=== PATIENT | female | born 1955 | race African-American/Black ===

== ENCOUNTER → 2017-04-04 | Day surgery (SDC) | payer MEDICARE ==
[~2017-04-04] VITALS: Ht 157.5 cm; Wt 90.7 kg
[~2017-04-04] MED LIST: 0.9 % SODIUM CHLORIDE 50 ML VIAL. IJ ONE; AZIT250T PO; BENZ100C PO; CHOL100013 PO; DEXAMETHASONE SOD PHOS 20 MG/5 ML VIAL. ONE; FERRIC SUBSULFATE 8 ML SOL.W.APPL TP ONE; HYDROmorphone 2 MG/ML VIAL IV PRN; IBUP-1007 PO; IV RINGERS,LACTATED 1000ML 1,000 ML IV SCH; LIDOCAINE 1% 1 ML SYRINGE. ID PRN; LIDOCAINE 1%/EPI 1:100,000 20 ML VIAL. ONE; LIDOCAINE 2% PF Vial for OR 5 ML VIAL. ONE; LIDOCAINE 2%/EPI 1:100,000 20 ML VIAL. ONE; MIDAZOLAM HCL/PF 2 MG/2 ML VIAL. ONE; MORPHINE SULFATE 2 MG/ML DISP.SYRIN. IV PRN; OMEP20TA8 PO; ONDANSETRON PF 4 MG/2 ML VIAL. IV PRN; ONDANSETRON PF 4 MG/2 ML VIAL. ONE; OXYC-323 PO; PHENYLEPHRINE 10 MG/ML VIAL. ONE; PRED50TA PO; PROCHLORPERAZINE 10 MG/2 ML VIAL. IV PRN; PROPOFOL 20 ML IV ONE; SEVOFLURANE 31 TO 60 MINUTES. IH ONE; ceFAZolin 2GM PREMIX 2 GM/50 ML BAG IV ONE; fentaNYL PF VIAL 100 MCG/2 ML VIAL IV PRN; fentaNYL PF VIAL 100 MCG/2 ML VIAL ONE; oxyCODONE/APAP 5/325 1 TAB TABLET PO PRN
--- NOTE | 2017-04-04 11:45 | DISCH ---
DISCHARGE INSTRUCTIONS Condition on Discharge Condition on Discharge: Stable Activity After Discharge Activity Instructions for Disc: Activity as tolerated Lifting Instructions after Dis: No heavy lifting Driving Instructions after Dis: Do not drive today Diet after Discharge Diet after Discharge: Regular Contacting the DRRubens after DC Call your doctor for: Concerns you may have Follow-Up Follow up with: Dr. Groves in 2 weeks. BRAYAN GROVES Jr, MD Apr 04, 2017 11:45
--- NOTE | 2017-04-04 11:45 | PDOC ---
BRIEF OPERATIVE NOTE Pre-Op Diagnosis Cervical Dysplasia Post-Op Diagnosis SAme Procedure Performed Cervical Cone bx Surgeon Dr. Groves Anesthesia Type: General Blood Loss 10 ml Specimens Obtained cervical cone bx Findings cervical dysplasia Complications none BRAYAN GROVES Jr, MD Apr 04, 2017 11:45
[2017-04-04 12:47] VITALS: BP 105/57
--- NOTE | 2017-04-04 14:13 | OP ---
DATE OF SURGERY: PREOPERATIVE DIAGNOSIS: Cervical dysplasia. POSTOPERATIVE DIAGNOSIS: Cervical dysplasia. PROCEDURE: Cervical cone biopsy. SURGEON: Jose Groves MD ANESTHESIA: GETA. ESTIMATED BLOOD LOSS: 10 mL. COMPLICATIONS: None. FINDINGS: Cervical dysplasia. SUMMARY: A 61-year-old female with cervical dysplasia confirmed by colposcopy in clinic. The patient was counseled on risks, benefits and expectations of cervical cone biopsy and voiced a clear understanding to proceed. DESCRIPTION OF PROCEDURE: The patient was taken to surgery suite and placed in dorsal lithotomy position. She was prepped with Betadine solution and draped in sterile fashion. After adequate anesthesia, a weighted speculum and a right angled were placed vaginally. Anterior lip of the cervix grasped with a single tooth tenaculum. 1% lidocaine with epinephrine was injected in a circumferential manner. 2-0 Vicryl suture was placed at the 3 o'clock and 9 o'clock position to better stabilized cervix. 45-degree angle blade was utilized to excise both the anterior and posterior lip of the cervix in a cone-like fashion. The remaining cervical canal was cauterized with ball tip cautery and Monsel solution was also applied for good hemostasis. The weighted speculum and right angle were removed. The single tooth tenaculum was also removed. The patient tolerated the procedure well and was taken to recovery room in stable condition. Sponge and needle counts correct x 3. JOSE GROVES MD DR: JOSEPHINE/erasmo JOB#: [id number] / [id number]
--- NOTE | 2017-04-08 15:38 | PATHOLOGY ---
PATHOLOGY REPORT * * * * * * * * FINAL DIAGNOSIS: Uterine cervix, cervical cone biopsy: - Mild dysplasia (AYSHA 1), focal. - Ectocervical and endocervical margins negative for dysplasia. - Focal fibrosis and hemosiderin laden macrophages consistent with previous biopsy site. - Nabothian cysts. (JPM:pit; 04/08/2017) REPORT ELECTRONICALLY SIGNED BY: Ruel Louie M.D. DATE/TIME: 04/08/2017 15:38 * * * * * * * * GROSS PATHOLOGY: Received in formalin labeled "Caitlyn Root, cervical cone biopsy," is an intact LEEP specimen measuring 1.9 x 1.1 x 2.5 cm in greatest dimensions. The specimen is oriented with a suture marking the 12:00 position. The 0.5 cm cervical os is surrounded by pale montaño, smooth ectocervical mucosa. The endocervical margin is inked blue and the ectocervical margin is inked black. The specimen is divided into four quadrants in a clockwise fashion, sectioned, and entirely submitted as follows: A1 12 to 3:00 margin A2 3 to 6:00 margin A3-A4 6 to 9:00 margin A5 9 to 12:00 margin. (CAA; 04/05/2017) INITIAL CPT CODE(S): A; 55383 Professional services performed by [facility] at [address] [address] Technical services performed by [facility] at [address] [place] [address] [address], [place] [address]. SPECIMEN(S) RECEIVED: A.Cervical cone biopsy CLINICAL HISTORY: Cervical dysplasia PATIENT: CAITLYN ROOT I /AGE: 8 1955 (Age: 61) PATIENT #: [id number] ALT CASE #: SPECIMEN COLLECTION DATE: 04/04/2017 SPECIMEN RECEIVED DATE: 04/04/2017 [facility] - [address] [place] [address] - PHONE: [phone] * * * END OF REPORT * * *
== END | disposition home or self-care (01) ==
LOC: SURG 09:24
PROVIDERS: ATTEND Obstetrics & Gynecology
DX: N87.9 Dysplasia of cervix uteri, unspecified (principal); K21.9 Gastro-esophageal reflux disease without esophagitis; F41.9 Anxiety disorder, unspecified; Z85.3 Personal history of malignant neoplasm of breast; Z86.69 Personal history of other diseases of the nervous system and sense organs; Z87.39 Personal history of other diseases of the musculoskeletal system and connective tissue; Z72.89 Other problems related to lifestyle; Z72.0 Tobacco use; Z88.2 Allergy status to sulfonamides
CPT/HCPCS: 57500; J0690; J1100; J2001; J2250; J2405; J2704; J3010; J3490; 88307

== ENCOUNTER → 2017-09-24 | Outpatient (CLI) | payer MEDICARE ==
[~2017-09-24] MED LIST changes: -0.9 % SODIUM CHLORIDE 50 ML VIAL. IJ ONE; -AZIT250T PO; -BENZ100C PO; -CHOL100013 PO; -DEXAMETHASONE SOD PHOS 20 MG/5 ML VIAL. ONE; -FERRIC SUBSULFATE 8 ML SOL.W.APPL TP ONE; -HYDROmorphone 2 MG/ML VIAL IV PRN; -IBUP-1007 PO; -IV RINGERS,LACTATED 1000ML 1,000 ML IV SCH; -LIDOCAINE 1% 1 ML SYRINGE. ID PRN; -LIDOCAINE 1%/EPI 1:100,000 20 ML VIAL. ONE; -LIDOCAINE 2% PF Vial for OR 5 ML VIAL. ONE; -LIDOCAINE 2%/EPI 1:100,000 20 ML VIAL. ONE; -MIDAZOLAM HCL/PF 2 MG/2 ML VIAL. ONE; -MORPHINE SULFATE 2 MG/ML DISP.SYRIN. IV PRN; -OMEP20TA8 PO; -ONDANSETRON PF 4 MG/2 ML VIAL. IV PRN; -ONDANSETRON PF 4 MG/2 ML VIAL. ONE; -OXYC-323 PO; +PERFLUTREN PROTEIN-A MICROSPHR 0.22 MG/ML 3 ML VIAL. IV; -PHENYLEPHRINE 10 MG/ML VIAL. ONE; -PRED50TA PO; -PROCHLORPERAZINE 10 MG/2 ML VIAL. IV PRN; -PROPOFOL 20 ML IV ONE; -SEVOFLURANE 31 TO 60 MINUTES. IH ONE; -ceFAZolin 2GM PREMIX 2 GM/50 ML BAG IV ONE; -fentaNYL PF VIAL 100 MCG/2 ML VIAL IV PRN; -fentaNYL PF VIAL 100 MCG/2 ML VIAL ONE; -oxyCODONE/APAP 5/325 1 TAB TABLET PO PRN
[2017-09-24] MEDS: PERFLUTREN PROTEIN-A MICROSPHR 0.22 MG/ML 3 ML VIAL. IV ×2 (14:06)
== END | disposition home or self-care (01) ==
LOC: ECHO 11:04
DX: I95.9 Hypotension, unspecified (principal); R42 Dizziness and giddiness
CPT/HCPCS: C8929; Q9956

== ENCOUNTER → 2017-10-15 | Outpatient (CLI) | payer MEDICARE ==
[2017-10-15] MEDS: REGADENOSON 0.4 MG/5 ML DISP.SYRIN. IV ×2 (10:00)
== END | disposition home or self-care (01) ==
LOC: NM 09:08
DX: I95.9 Hypotension, unspecified (principal); Z85.3 Personal history of malignant neoplasm of breast
CPT/HCPCS: 78452; 93017; 96374; 96375; 96376; A9500; J2785

== ENCOUNTER 2017-12-03 00:46 | Emergency (ER) | payer MEDICARE ==
[2017-12-03] MEDS: KETOROLAC 60 MG/2 ML INJ. IM (02:09)
== END 2017-12-03 02:24 | disposition home or self-care (01) ==
LOC: ER 00:46
DX: M10.9 Gout, unspecified (principal); F17.210 Nicotine dependence, cigarettes, uncomplicated; Z88.2 Allergy status to sulfonamides
CPT/HCPCS: 73610; 93971; 96372; 99284-25; J1885

== ENCOUNTER 2020-03-17 07:51 | Inpatient (IN) | payer MEDICARE ==
[2020-03-17] VITALS (16 sets, daily range): BP systolic 84–157; BP diastolic 54–93
[~2020-03-17] VITALS: Ht 157.5 cm; Wt 81.0 kg
[~2020-03-17 07:51] MED LIST changes: +AZIT250T PO; +BENZ100C PO; +CALC-79 PO; +CHOL100013 PO; +HYDR-3164 PO; +IBUP-1007 PO; +INDO50CA15 PO; +MECL12.573 PO; +OMEP20TA8 PO; +OXYC1TAB15 PO; -PERFLUTREN PROTEIN-A MICROSPHR 0.22 MG/ML 3 ML VIAL. IV; +PRED50TA PO
[2020-03-17] MEDS ORDERED: ETOMIDATE 20 MG/10 ML VIAL. IV ONE ×2 (08:10→09:30)
[2020-03-17] MEDS ORDERED: ROCURONIUM 50 MG/5 ML VIAL. ONE (08:10)
[2020-03-17] MEDS ORDERED: PROPOFOL 50 ML IV ONE ×3 (08:16→12:00)
[2020-03-17] MEDS ORDERED: ASPIRIN RECTAL 300 MG SUPP. PR STA (08:42)
[2020-03-17 08:50] LABS: BARBITURATES NEG (NEG); BENZODIAZEPINES NEG (NEG); CANNABINOIDS NEG (NEG); COCAINE NEG (NEG); METHADONE NEG (NEG); OPIATES NEG (NEG); PHENCYCLIDINE NEG (NEG)
[2020-03-17 08:51] LABS: AMPHETAMINE/METHAMPHETAMINE NEG (NEG)
[2020-03-17 08:54] LABS: BASE EXCESS ABG -1 mmol/L (-3-3); HCO3 ABG 27 mmol/L (21-28); PO2 ABG 119 mmHg (65-108); SAT O2 ABG 97 % (92-99)
[2020-03-17 08:56] LABS: FIO2 ABG 100%; PCO2 ABG 63 mmHg (35-46)
[2020-03-17 08:59] LABS: BASO % 0 % (0-3); EOS % 0 % (0-3); HEMATOCRIT 25.2 % (36.0-47.0); LYMPH # 2.4 x10^3/uL (1.0-4.8); LYMPH % 20 % (24-48); MEAN CORPUSCULAR HEMOGLOBIN 31 pg (25-35); MEAN CORPUSCULAR HGB CONC 32 g/dL (31-37); MEAN CORPUSCULAR VOLUME 98 fL (79-100); MONO # 0.4 x10^3/uL (0.0-1.1); MONO % 3 % (0-9); NEUT # 9.3 x10^3/uL (1.8-7.7); NEUT % 77 % (31-73); PLATELET COUNT 178 x10^3/uL (140-400); RED BLOOD COUNT 2.57 x10^6/uL (3.50-5.40); RED CELL DISTRIBUTION WIDTH 21.5 % (11.5-14.5); WHITE BLOOD COUNT 12.1 x10^3/uL (4.0-11.0)
[2020-03-17] MEDS ORDERED: fentaNYL PF VIAL 100 MCG/2 ML VIAL IV ONE (09:00)
[2020-03-17] MEDS ORDERED: PIPERACILLIN/TAZOBACTAM 2.25 GM in IV NORMAL SALINE 50ML 50 ML IV ONE (09:00)
[2020-03-17 09:09] LABS: CALCIUM 8.1 mg/dL (8.5-10.1); CREATININE 4.7 mg/dL (0.6-1.0); GFR 11.3; POTASSIUM 4.3 mmol/L (3.5-5.1); PROTHROMBIN TIME PATIENT 13.3 SEC (11.7-14.0)
[2020-03-17 09:14] LABS: ALBUMIN 2.5 g/dL (3.4-5.0); TOTAL BILIRUBIN 0.4 mg/dL (0.2-1.0)
--- NOTE | 2020-03-17 09:22 | PHYS DOC ---
Past Medical History Past Medical History: Cancer, Other Additional Past Medical Histor: breast ca, Past Surgical History: Cancer Surgery Additional Past Surgical Histo: lumpectomy, wrist surgery. Smoking Status: Current Every Day Smoker Alcohol Use: None Drug Use: Marijuana General Adult EDM: Chief Complaint: SHORTNESS OF BREATH HPI: HPI: Patient is a 64 year old female brought in by ambulance shortness of breath sudden onset severe 5:30 in the morning history limited by the patient's acuity per the paramedics oxygen saturation was very low they placed the patient on BiPAP. According to the patient had a negative COVID test about a week and a half ago she seemed to be okay yesterday he thought the shortness of breath got worse today. Past medical history includes Merna's granulomatosis end-stage renal disease on hemodialysis Saturday recent admission March 05 [facility] for shortness of breath the paperwork has been sent for the details of that admission. Medication lists does not know it at this time. Allergy to sulfa. No history of diabetes DID NOT go to dialysis yet today but otherwise has not missed any. Review of Systems: Review of Systems: Limited by acuity Heart Score: Risk Factors: Risk Factors: DM, Current or recent (<one month) smoker, HTN, HLP, family history of CAD, obesity. Risk Scores: Score 0 - 3: 2.5% MACE over next 6 weeks - Discharge Home Score 4 - 6: 20.3% MACE over next 6 weeks - Admit for Clinical Observation Score 7 - 10: 72.7% MACE over next 6 weeks - Early Invasive Strategies Current Medications: Current Medications Medications (Trade) Dose Ordered Sig/Solomon Start Time Stop Time Status Last Admin Dose Admin Aspirin (Aspirin Rectal Supp) 300 mg 1X STAT 03/17/20 08:42 03/17/20 08:58 DC Etomidate (Amidate) 20 mg STK-MED ONCE 03/17/20 08:10 03/17/20 08:10 DC Fentanyl Citrate (Fentanyl 2ml Vial) 100 mcg 1X ONCE 03/17/20 09:00 03/17/20 09:01 DC Piperacillin Sod/ Tazobactam Sod 2.25 gm/Sodium Chloride 50 ml @ 100 mls/hr 1X ONCE 03/17/20 09:00 03/17/20 09:29 Propofol 50 ml @ As Directed STK-MED ONCE 03/17/20 08:16 03/17/20 08:17 DC Rocuronium [place] (Zemuron) 50 mg STK-MED ONCE 03/17/20 08:10 03/17/20 08:11 DC Allergies: Allergies: Allergies Coded Allergies Type Severity Reaction Last Updated Verified Sulfa (Sulfonamide Antibiotics) Allergy Intermediate 12/03/17 Yes Physical Exam: PE: Constitutional: Well developed, very ill-appearing severe respiratory distress HENT: Normocephalic, atraumatic, bilateral external ears normal, oropharynx moist, no oral exudates, nose normal. [] Eyes: PERRLA, EOMI, conjunctiva normal, no discharge. [] Neck: Normal range of motion, no tenderness, supple, no stridor. [] Cardiovascular:H severe tachycardia Lungs & Thorax: Audible coarse breath sounds without a stethoscope severe respiratory distress was noted patient appeared blue Abdomen: Bowel sounds normal, soft, no tenderness, no masses, no pulsatile masses. [] Skin: Warm, dry, no erythema, rash on legs Back: No tenderness, no CVA tenderness. [] Extremities: No tenderness, no cyanosis, no clubbing, ROM intact, 1+ symmetric edema Neurologic: Alert difficult to assess due to respiratory status but moving all extremities and able to answer 1-2 word sentences Current Patient Data: Labs: Laboratory Tests Test 03/17/20 08:30 03/17/20 08:40 03/17/20 08:45 Urine Opiates Screen Neg (NEG) Urine Methadone Screen Neg (NEG) Urine Barbiturates Neg (NEG) Urine Phencyclidine Screen Neg (NEG) Urine Amphetamine/Methamphetamine Neg (NEG) Urine Benzodiazepines Screen Neg (NEG) Urine Cocaine Screen Neg (NEG) Urine Cannabinoids Screen Neg (NEG) Urine Ethyl Alcohol Neg (NEG) White Blood Count 12.1 x10^3/uL (4.0-11.0) H Red Blood Count 2.57 x10^6/uL (3.50-5.40) L Hemoglobin 8.0 g/dL (12.0-15.5) L Hematocrit 25.2 % (36.0-47.0) L Mean Corpuscular Volume 98 fL (79-100) Mean Corpuscular Hemoglobin 31 pg (25-35) Mean Corpuscular Hemoglobin Concent 32 g/dL (31-37) Red Cell Distribution Width 21.5 % (11.5-14.5) H Platelet Count 178 x10^3/uL (140-400) Neutrophils (%) (Auto) 77 % (31-73) H Lymphocytes (%) (Auto) 20 % (24-48) L Monocytes (%) (Auto) 3 % (0-9) Eosinophils (%) (Auto) 0 % (0-3) Basophils (%) (Auto) 0 % (0-3) Neutrophils # (Auto) 9.3 x10^3/uL (1.8-7.7) H Lymphocytes # (Auto) 2.4 x10^3/uL (1.0-4.8) Monocytes # (Auto) 0.4 x10^3/uL (0.0-1.1) Eosinophils # (Auto) 0.0 x10^3/uL (0.0-0.7) Basophils # (Auto) 0.0 x10^3/uL (0.0-0.2) Platelet Estimate Pending Prothrombin Time 13.3 SEC (11.7-14.0) Prothrombin Time INR 1.1 (0.8-1.1) Sodium Level 142 mmol/L (136-145) Potassium Level 4.3 mmol/L (3.5-5.1) Chloride Level 106 mmol/L (98-107) Carbon Dioxide Level 24 mmol/L (21-32) Anion Gap 12 (6-14) Blood Urea Nitrogen 53 mg/dL (7-20) H Creatinine 4.7 mg/dL (0.6-1.0) H Estimated GFR (Cockcroft-Gault) 11.3 BUN/Creatinine Ratio 11 (6-20) Glucose Level 265 mg/dL (70-99) H Calcium Level 8.1 mg/dL (8.5-10.1) L Total Bilirubin Pending Aspartate Amino Transferase (AST) Pending Alanine Aminotransferase (ALT) Pending Alkaline Phosphatase Pending Total Protein Pending Albumin Pending Albumin/Globulin Ratio Pending O2 Saturation 97 % (92-99) Arterial Blood pH 7.25 (7.35-7.45) L Arterial Blood pCO2 at Patient Temp 63 mmHg (35-46) *H Arterial Blood pO2 at Patient Temp 119 mmHg (65-108) H Arterial Blood HCO3 27 mmol/L (21-28) Arterial Blood Base Excess -1 mmol/L (-3-3) FiO2 100% Laboratory Tests 03/17/20 08:40 Laboratory Tests 03/17/20 08:40 Vital Signs: Vital Signs Date Time Temp Pulse Resp B/P (MAP) Pulse Ox O2 Delivery O2 Flow Rate FiO2 03/17/20 08:25 100 Ventilator EKG: EKG: [] EKG shows sinus tachycardia with a rate of 139 no acute STEMI was noted there are nonspecific changes laterally could be rate related chest x-ray shows significant bilateral infiltrates differential would include infection or edema. Final read pending no evidence of pneumothorax. The tube is just at the torsten I have asked them to pull it back 1 cm. Final read pending Critical care time was 55 minutes exclusive of procedures to include bedside management evaluation of care discussion with consultants and family. Radiology/Procedures: Radiology/Procedures: [] Impression: Impression: 1. Support device positioning, as above, to include an endotracheal tube which approaches the torsten. 2. Basilar predominant consolidative opacities on both the right and left on a background of generalized increased interstitial markings and bronchial wall thickening. Interstitial and alveolar edema is a consideration though multifocal pneumonia is not excluded. Recommend short interval follow-up to confirm improvement. Electronically signed by: MEDARDO FREIRE MD (03/17/2020 9:21 AM) [id number] DICTATED and SIGNED BY: MEDARDO FREIRE MD DATE: 03/17/20920 Course & Med Decision Making: Course & Med Decision Making Pertinent Labs and Imaging studies reviewed. (See chart for details) [] 64-year-old female with a history of Merna's granulomatosis on end-stage renal disease hemodialysis Saturday presenting with acute dyspnea was on a nonrebreather satting 80% look like she was tiring out opted for intubation Intubation note: Etomidate 20 rocuronium 100 patient was a difficult airway smallmouth grade 2 view initially unsure of placement pulled out second attempt better view 7.5 tube confirmed with breath sounds chest x-ray and end-tidal CO2 patient had temporary desaturation which resolved. MAC 4 blade. Central line note: Emergent procedure due to severe illness critical illness and lack of peripheral access. Femoral line see note. requiring 12 peep for maintenance of volume. Zosyn and aspirin given propofol drip 100 of fentanyl patienT required 12 of PEEP to maintain proper tidal volume blood gas showed some respiratory acidosis should improve with continued ventilation. Chest x-ray shows significant diffuse infiltrates differential fluid overload versus infection. Copious on the differential we used complete PPE during the entire procedures including N 95 as well as a PA [facility]. Plan to admit to the hospitalist service Dr. ABBOTT, ICU bed with pulmonary and nephrology consulting. COVID PENDING. I SPOKE WITH MATT FOR DIALYSIS AT 1020 AM. MYLES ABBOTT AT 1015 Dragon Disclaimer: Dragon Disclaimer: This electronic medical record was generated, in whole or in part, using a voice recognition dictation system. Departure Departure Impression: Primary Impression: Acute respiratory failure Disposition: ADMITTED INPATIENT Admitting Physician: JOSE E Condition: CRITICAL Referrals: UNKNOWN PCP NAME (PCP) Justicifation of Admission Dx: Justifications for Admission: Justification of Admission Dx: Yes Respiratory Failure: Mechanical Ventilation CENTRAL LINE INSERTION CENTRAL LINE INSERTION: Location: right femoral line seldinger technique. first attempt arterial poke, good pressure held , no hematoma. second attempt successful venous placement. 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
--- NOTE | 2020-03-17 09:24 | RAD ---
Study: CR PORTABLE CHEST 1V Indication: Intubation. Comparison: None. Findings: Endotracheal tube tip is approximately 1.3 cm from the torsten. Retraction by about 4.[address] the tip at the inferior margin of the clavicles. Large bore left subclavian central venous catheter with the tip at the lower SVC approaching the superior cavoatrial junction. Enteric tube tip terminates below the inferior margin of the radiograph. Bilateral consolidative opacities with a basilar predominance. Generalized increased interstitial markings. Bronchial wall thickening and mild thickening of the latter fissure. No pneumothorax or layering effusion. Symmetric prominence of the anabell. The cardiomediastinal silhouette is within the broad range of normal for size given AP technique. Impression: 1. Support device positioning, as above, to include an endotracheal tube which approaches the torsten. 2. Basilar predominant consolidative opacities on both the right and left on a background of generalized increased interstitial markings and bronchial wall thickening. Interstitial and alveolar edema is a consideration though multifocal pneumonia is not excluded. Recommend short interval follow-up to confirm improvement. Electronically signed by: MEDARDO FREIRE MD (03/17/2020 9:21 AM) [id number]
[2020-03-17 09:29] LABS: ANISOCYTOSIS MOD; PLT ESTIMATE ADEQUATE (ADEQUATE); POIKILOCYTOSIS SLIGHT; POLYCHROMASIA OCCASIONAL
[2020-03-17] MEDS ORDERED: IV NORMAL SALINE 1000ML BAG 1,000 ML IV ONE (09:30)
[2020-03-17] MEDS ORDERED: ROCURONIUM 100 MG/10 ML VIAL. IV ONE (09:30)
[2020-03-17] MEDS ORDERED: PROPOFOL 10 MG/ML (20ML) VIAL. IV ONE (09:30)
[2020-03-17] MEDS ORDERED: NOREPINEPHRINE VIAL 8 MG in IV DEXTROSE 5% 250 ML IV ONE (11:30)
[2020-03-17] MEDS ORDERED: fentaNYL PF VIAL 100 MCG/2 ML VIAL IVP ONE (11:30)
[2020-03-17] MEDS ORDERED: IV NORMAL SALINE 250ML 250 ML IV ONE (12:00)
[2020-03-17] MEDS ORDERED: PIP/TAZO PER PHARMACY MC PRN (12:15)
[2020-03-17] MEDS ORDERED: DIALYSIS PATIENT. MC PRN ×3 (12:15→13:00)
--- NOTE | 2020-03-17 12:17 | PDOC1 ---
History and Physical Date of Admission Date of Admission DATE: 03/17/20 TIME: 11:54 Identification/Chief Complaint Chief Complaint sob Problems: (1) Acute respiratory failure Source Source: Chart review, Unable to obtain due to (patient intubated on vent) History of Present Illness History of Present Illness 64 year old hx of Payal's, ESRD on HD, who presents with sudden onset of SOB since 530 this AM so called paramedics who brought her to ED. sats found to be low. patient initially placed on BIPAP then intubated. patient receives HD TTHSAT. did not miss any HD this week. however has not received HD today bc she is in hospital. recent admission at [facility], unclear reason. no family at bedside and patient intubated so further hx difficult to obtain. last echo 09/19 showing preserved EF BNP 15064 trop 0.085 procal 0.65 WBC 12k Hb 8.0 cxr looks fluid overloaded on my read. can't rule out PNA Past Medical History Cardiovascular: Other Pulmonary: Bronchitis GI: GERD Heme/Onc: Cancer Hepatobiliary: No pertinent hx Psych: Anxiety Rheumatologic: Other (Weers) Infectious disease: No pertinent hx Renal/: No pertinent hx Endocrine: No pertinent hx Past Surgical History Past Surgical History: Other Family History Family History: Coronary Artery Disease, Diabetes, Hypertension Social History ALCOHOL: none Drugs: None Current Problem List Problem List Problems Medical Problems: (1) Acute respiratory failure Status: Acute Current Medications Current Medications Current Medications Etomidate (Amidate) 20 mg STK-MED ONCE IV ; Start 03/17/20 at 08:10; Stop 03/17/20 at 08:10; Status DC Rocuronium [place] (Zemuron) 50 mg STK-MED ONCE .ROUTE ; Start 03/17/20 at 08:10; Stop 03/17/20 at 08:11; Status DC Propofol 50 ml @ As Directed STK-MED ONCE IV ; Start 03/17/20 at 08:16; Stop 03/17/20 at 08:17; Status DC Aspirin (Aspirin Rectal Supp) 300 mg 1X STAT [place] Last administered on 03/17/20at 09:17; Start 03/17/20 at 08:42; Stop 03/17/20 at 08:58; Status DC Piperacillin Sod/ Tazobactam Sod 2.25 gm/Sodium Chloride 50 ml @ 100 mls/hr 1X ONCE IV Last administered on 03/17/20at 09:16; Start 03/17/20 at 09:00; Stop 03/17/20 at 09:29; Status DC Fentanyl Citrate (Fentanyl 2ml Vial) 100 mcg 1X ONCE IV Last administered on 03/17/20at 09:15; Start 03/17/20 at 09:00; Stop 03/17/20 at 09:01; Status DC Etomidate (Amidate) 20 mg 1X ONCE IV Last administered on 03/17/20at 09:20; Start 03/17/20 at 09:30; Stop 03/17/20 at 09:31; Status DC Rocuronium [place] (Zemuron) 100 mg 1X ONCE IV Last administered on 03/17/20at 09:20; Start 03/17/20 at 09:30; Stop 03/17/20 at 09:31; Status DC Sodium Chloride 1,000 ml @ 1,000 mls/hr 1X ONCE IV Last administered on 03/17/20at 09:21; Start 03/17/20 at 09:30; Stop 03/17/20 at 10:29; Status DC Propofol (Diprivan) 500 mg 1X ONCE IV Last administered on 03/17/20at 08:15; Start 03/17/20 at 09:30; Stop 03/17/20 at 09:39; Status DC Norepinephrine Bitartrate 8 mg/ Dextrose 258 ml @ 19.35 mls/ hr 1X ONCE IV Last administered on 03/17/20at 11:41; Start 03/17/20 at 11:30; Stop 03/18/20 at 00:49 Fentanyl Citrate (Fentanyl 2ml Vial) 100 mcg 1X ONCE IVP Last administered on 03/17/20at 11:42; Start 03/17/20 at 11:30; Stop 03/17/20 at 11:31; Status DC Propofol 50 ml @ As Directed STK-MED ONCE IV ; Start 03/17/20 at 11:45; Stop 03/17/20 at 11:45; Status DC Propofol 50 ml @ 1.5 mls/hr 1X ONCE IV Last administered on 03/17/20at 11:51; Start 03/17/20 at 12:00; Stop 03/18/20 at 21:19 Active Scripts Active [place] 5-325 Tablet (Acetaminophen/Hydrocodone Bitart) 1 Each Tablet 1-2 Tab PO Q4-6HRS Indomethacin 50 Mg Capsule 1 Cap PO TID Meclizine Hcl 12.5 Mg Tablet 25 Mg PO TID 7 Days Reported Calcium Gummies (Calcium Phosphate Trib/Vit D3) 1 Each Tab.chew 1 Each PO DAILY Omeprazole 20 Mg Tablet.dr 20 Mg PO DAILY PRN Allergies Allergies: Coded Allergies: Sulfa (Sulfonamide Antibiotics) (Verified Allergy, Intermediate, 12/03/17) ROS Review of System intubated Physical Exam Physical Exam GENERAL: intubated on vent HEENT: Head normocephalic, atraumatic. NECK: Supple LUNGS: Clear to auscultation. HEART: RRR, S1, S2 present, pulses intact ABDOMEN: Soft, positive bowel sounds. EXTREMITIES: No cyanosis or edema. NEUROLOGIC: Normal speech, normal tone PSYCHIATRIC: Normal affect, normal mood. SKIN: No ulceration. Vitals Vitals Vital Signs Date Time Temp Pulse Resp B/P (MAP) Pulse Ox O2 Delivery O2 Flow Rate FiO2 03/17/20 11:47 96 Ventilator 03/17/20 11:42 20 03/17/20 10:18 118 151/93 (112) 03/17/20 07:53 97.8 97.8 Labs Labs Laboratory Tests Test 03/17/20 08:30 03/17/20 08:40 03/17/20 08:45 Urine Opiates Screen Neg (NEG) Urine Methadone Screen Neg (NEG) Urine Barbiturates Neg (NEG) Urine Phencyclidine Screen Neg (NEG) Urine Amphetamine/Methamphetamine Neg (NEG) Urine Benzodiazepines Screen Neg (NEG) Urine Cocaine Screen Neg (NEG) Urine Cannabinoids Screen Neg (NEG) Urine Ethyl Alcohol Neg (NEG) White Blood Count 12.1 x10^3/uL (4.0-11.0) Red Blood Count 2.57 x10^6/uL (3.50-5.40) Hemoglobin 8.0 g/dL (12.0-15.5) Hematocrit 25.2 % (36.0-47.0) Mean Corpuscular Volume 98 fL (79-100) Mean Corpuscular Hemoglobin 31 pg (25-35) Mean Corpuscular Hemoglobin Concent 32 g/dL (31-37) Red Cell Distribution Width 21.5 % (11.5-14.5) Platelet Count 178 x10^3/uL (140-400) Neutrophils (%) (Auto) 77 % (31-73) Lymphocytes (%) (Auto) 20 % (24-48) Monocytes (%) (Auto) 3 % (0-9) Eosinophils (%) (Auto) 0 % (0-3) Basophils (%) (Auto) 0 % (0-3) Neutrophils # (Auto) 9.3 x10^3/uL (1.8-7.7) Lymphocytes # (Auto) 2.4 x10^3/uL (1.0-4.8) Monocytes # (Auto) 0.4 x10^3/uL (0.0-1.1) Eosinophils # (Auto) 0.0 x10^3/uL (0.0-0.7) Basophils # (Auto) 0.0 x10^3/uL (0.0-0.2) Platelet Estimate Adequate (ADEQUATE) Polychromasia Occasional Poikilocytosis Slight Anisocytosis Mod Prothrombin Time 13.3 SEC (11.7-14.0) Prothromb Time International Ratio 1.1 (0.8-1.1) Sodium Level 142 mmol/L (136-145) Potassium Level 4.3 mmol/L (3.5-5.1) Chloride Level 106 mmol/L (98-107) Carbon Dioxide Level 24 mmol/L (21-32) Anion Gap 12 (6-14) Blood Urea Nitrogen 53 mg/dL (7-20) Creatinine 4.7 mg/dL (0.6-1.0) Estimated GFR (Cockcroft-Gault) 11.3 BUN/Creatinine Ratio 11 (6-20) Glucose Level 265 mg/dL (70-99) Calcium Level 8.1 mg/dL (8.5-10.1) Total Bilirubin 0.4 mg/dL (0.2-1.0) Aspartate Amino Transf (AST/SGOT) 73 U/L (15-37) Alanine Aminotransferase (ALT/SGPT) 71 U/L (14-59) Alkaline Phosphatase 139 U/L (46-116) Troponin I Quantitative 0.085 ng/mL (0.000-0.055) SZ-[id number]-G-Type Natriuretic Peptide > 57601 pg/mL (0-124) Total Protein 5.0 g/dL (6.4-8.2) Albumin 2.5 g/dL (3.4-5.0) Albumin/Globulin Ratio 1.0 (1.0-1.7) Procalcitonin 0.65 ng/mL (0.00-0.10) O2 Saturation 97 % (92-99) Arterial Blood pH 7.25 (7.35-7.45) Arterial Blood pCO2 at Patient Temp 63 mmHg (35-46) Arterial Blood pO2 at Patient Temp 119 mmHg (65-108) Arterial Blood HCO3 27 mmol/L (21-28) Arterial Blood Base Excess -1 mmol/L (-3-3) FiO2 100% Laboratory Tests Test 03/17/20 08:30 03/17/20 08:40 03/17/20 08:45 Urine Opiates Screen Neg (NEG) Urine Methadone Screen Neg (NEG) Urine Barbiturates Neg (NEG) Urine Phencyclidine Screen Neg (NEG) Urine Amphetamine/Methamphetamine Neg (NEG) Urine Benzodiazepines Screen Neg (NEG) Urine Cocaine Screen Neg (NEG) Urine Cannabinoids Screen Neg (NEG) Urine Ethyl Alcohol Neg (NEG) White Blood Count 12.1 x10^3/uL (4.0-11.0) Red Blood Count 2.57 x10^6/uL (3.50-5.40) Hemoglobin 8.0 g/dL (12.0-15.5) Hematocrit 25.2 % (36.0-47.0) Mean Corpuscular Volume 98 fL (79-100) Mean Corpuscular Hemoglobin 31 pg (25-35) Mean Corpuscular Hemoglobin Concent 32 g/dL (31-37) Red Cell Distribution Width 21.5 % (11.5-14.5) Platelet Count 178 x10^3/uL (140-400) Neutrophils (%) (Auto) 77 % (31-73) Lymphocytes (%) (Auto) 20 % (24-48) Monocytes (%) (Auto) 3 % (0-9) Eosinophils (%) (Auto) 0 % (0-3) Basophils (%) (Auto) 0 % (0-3) Neutrophils # (Auto) 9.3 x10^3/uL (1.8-7.7) Lymphocytes # (Auto) 2.4 x10^3/uL (1.0-4.8) Monocytes # (Auto) 0.4 x10^3/uL (0.0-1.1) Eosinophils # (Auto) 0.0 x10^3/uL (0.0-0.7) Basophils # (Auto) 0.0 x10^3/uL (0.0-0.2) Platelet Estimate Adequate (ADEQUATE) Polychromasia Occasional Poikilocytosis Slight Anisocytosis Mod Prothrombin Time 13.3 SEC (11.7-14.0) Prothromb Time International Ratio 1.1 (0.8-1.1) Sodium Level 142 mmol/L (136-145) Potassium Level 4.3 mmol/L (3.5-5.1) Chloride Level 106 mmol/L (98-107) Carbon Dioxide Level 24 mmol/L (21-32) Anion Gap 12 (6-14) Blood Urea Nitrogen 53 mg/dL (7-20) Creatinine 4.7 mg/dL (0.6-1.0) Estimated GFR (Cockcroft-Gault) 11.3 BUN/Creatinine Ratio 11 (6-20) Glucose Level 265 mg/dL (70-99) Calcium Level 8.1 mg/dL (8.5-10.1) Total Bilirubin 0.4 mg/dL (0.2-1.0) Aspartate Amino Transf (AST/SGOT) 73 U/L (15-37) Alanine Aminotransferase (ALT/SGPT) 71 U/L (14-59) Alkaline Phosphatase 139 U/L (46-116) Troponin I Quantitative 0.085 ng/mL (0.000-0.055) VX-Wjj-X-Type Natriuretic Peptide > 75083 pg/mL (0-124) Total Protein 5.0 g/dL (6.4-8.2) Albumin 2.5 g/dL (3.4-5.0) Albumin/Globulin Ratio 1.0 (1.0-1.7) Procalcitonin 0.65 ng/mL (0.00-0.10) O2 Saturation 97 % (92-99) Arterial Blood pH 7.25 (7.35-7.45) Arterial Blood pCO2 at Patient Temp 63 mmHg (35-46) Arterial Blood pO2 at Patient Temp 119 mmHg (65-108) Arterial Blood HCO3 27 mmol/L (21-28) Arterial Blood Base Excess -1 mmol/L (-3-3) FiO2 100% VTE Prophylaxis Ordered VTE Prophylaxis Devices: Yes VTE Pharmacological Prophylaxi: Yes Assessment/Plan Assessment/Plan ASSESSMENT Acute Hypoxic Resp Failure secondary to Volume Overload Suspected COVID-19 Acute Encephalopathy ESRD on HD Elevated Trop likely demand ischemia Obesity Payal's Dz hx of Vertigo PLAN admit to ICU Vent/Sedation orders given elevated procal and ? PNA start zosyn check covid-19 Pulm Consult Nephro consult for HD cards consult given elevated trop DVT ppx: heparin sq med rec completed FULL CODE Justicifation of Admission Dx: Justifications for Admission: Justification of Admission Dx: Yes Respiratory Failure: Mechanical Ventilation RIGOBERTO ABBOTT MD Mar 17, 2020 12:17
[2020-03-17] MEDS ORDERED: MIDAZOLAM 100mg/100ml NS BAG 100 ML IV PRN (12:30)
[2020-03-17] MEDS ORDERED: 0.9 % SODIUM CHLORIDE 10 ML DISP.SYRIN. IV PRN ×2 (13:00)
[2020-03-17] MEDS ORDERED: ALBUMIN HUMAN 25% 200 ML IV PRN (13:00)
[2020-03-17] MEDS ORDERED: IV NORMAL SALINE 1000ML BAG 1,000 ML IV PRN ×2 (13:00)
--- NOTE | 2020-03-17 13:14 | PDOC2 ---
ANAY MARTIN HIDE SPLITTER 03/17/20 1314: CARDIAC CONSULT DATE OF CONSULT Date of Consult DATE: 03/17/20 TIME: 13:08 REASON FOR CONSULT Reason for Consult: respiratory failure Elevated trop REFERRING PHYSICIAN Referring Physician: Dr. Suazo SOURCE Source: Chart review HISTORY OF PRESENT ILLNESS HISTORY OF PRESENT ILLNESS This is a 64 yo female who presented secondary to shortness of breath. Required intubation. Trop noted to be elevated, which prompted this consult. PAST MEDICAL HISTORY Past Medical History Cardiovascular: Other (hypotension) Pulmonary: Bronchitis, Merna's granulomatosis GI: GERD Heme/Onc: Cancer (breast) Hepatobiliary: No pertinent hx Psych: Anxiety Rheumatologic: No pertinent hx Infectious disease: No pertinent hx ENT: No pertinent hx Renal/: ESRD Endocrine: No pertinent hx Dermatology: No pertinent hx PAST SURGICAL HISTORY Past Surgical History Other (left breast lumpectomy ) FAMILY HISTORY Family History Coronary Artery Disease (father ), Diabetes, Hypertension SOCIAL HISTORY Social History Smoke: <1 pack per day ALCOHOL: none Drugs: None Lives: with Family CURRENT MEDICATIONS CURRENT MEDICATIONS Current Medications Medications (Trade) Dose Ordered Sig/Solomon Route PRN Reason Start Time Stop Time Status Last Admin Dose Admin Aspirin (Aspirin Rectal Supp) 300 mg 1X STAT [place] 03/17/20 08:42 03/17/20 08:58 DC 03/17/20 09:17 Piperacillin Sod/ Tazobactam Sod 2.25 gm/Sodium Chloride 50 ml @ 100 mls/hr 1X ONCE IV 03/17/20 09:00 03/17/20 09:29 DC 03/17/20 09:16 Fentanyl Citrate (Fentanyl 2ml Vial) 100 mcg 1X ONCE IV 03/17/20 09:00 03/17/20 09:01 DC 03/17/20 09:15 Etomidate (Amidate) 20 mg 1X ONCE IV 03/17/20 09:30 03/17/20 09:31 DC 03/17/20 09:20 Rocuronium [place] (Zemuron) 100 mg 1X ONCE IV 03/17/20 09:30 03/17/20 09:31 DC 03/17/20 09:20 Sodium Chloride 1,000 ml @ 1,000 mls/hr 1X ONCE IV 03/17/20 09:30 03/17/20 10:29 DC 03/17/20 09:21 Propofol (Diprivan) 500 mg 1X ONCE IV 03/17/20 09:30 03/17/20 09:39 DC 03/17/20 08:15 Norepinephrine Bitartrate 8 mg/ Dextrose 258 ml @ 19.35 mls/ hr 1X ONCE IV 03/17/20 11:30 03/18/20 00:49 03/17/20 11:41 Fentanyl Citrate (Fentanyl 2ml Vial) 100 mcg 1X ONCE IVP 03/17/20 11:30 03/17/20 11:31 DC 03/17/20 11:42 Propofol 50 ml @ 1.5 mls/hr 1X ONCE IV 03/17/20 12:00 03/18/20 21:19 03/17/20 11:51 ALLERGIES ALLERGIES: Coded Allergies: Sulfa (Sulfonamide Antibiotics) (Verified Allergy, Intermediate, 12/03/17) ROS Review of System unobtainable PHYSICAL EXAM General: Other (sedated, intubated ) HEENT: Atraumatic Lungs: Other (mechanical vent) Heart: Regular rate Abdomen: Soft Extremities: No edema, Normal pulses Neuro: Other (sedated ) MUSCULOSKELETAL: Osteoarthritic changes both hands VITALS/I&O VITALS/I&O: Vital Signs Date Time Temp Pulse Resp B/P (MAP) Pulse Ox O2 Delivery O2 Flow Rate FiO2 03/17/20 11:55 92 20 118/76 (90) 93 Ventilator 03/17/20 07:53 97.8 97.8 LABS Lab: Laboratory Tests Test 03/17/20 08:30 03/17/20 08:40 03/17/20 08:45 Urine Opiates Screen Neg (NEG) Urine Methadone Screen Neg (NEG) Urine Barbiturates Neg (NEG) Urine Phencyclidine Screen Neg (NEG) Urine Amphetamine/Methamphetamine Neg (NEG) Urine Benzodiazepines Screen Neg (NEG) Urine Cocaine Screen Neg (NEG) Urine Cannabinoids Screen Neg (NEG) Urine Ethyl Alcohol Neg (NEG) White Blood Count 12.1 x10^3/uL (4.0-11.0) H Red Blood Count 2.57 x10^6/uL (3.50-5.40) L Hemoglobin 8.0 g/dL (12.0-15.5) L Hematocrit 25.2 % (36.0-47.0) L Mean Corpuscular Volume 98 fL (79-100) Mean Corpuscular Hemoglobin 31 pg (25-35) Mean Corpuscular Hemoglobin Concent 32 g/dL (31-37) Red Cell Distribution Width 21.5 % (11.5-14.5) H Platelet Count 178 x10^3/uL (140-400) Neutrophils (%) (Auto) 77 % (31-73) H Lymphocytes (%) (Auto) 20 % (24-48) L Monocytes (%) (Auto) 3 % (0-9) Eosinophils (%) (Auto) 0 % (0-3) Basophils (%) (Auto) 0 % (0-3) Neutrophils # (Auto) 9.3 x10^3/uL (1.8-7.7) H Lymphocytes # (Auto) 2.4 x10^3/uL (1.0-4.8) Monocytes # (Auto) 0.4 x10^3/uL (0.0-1.1) Eosinophils # (Auto) 0.0 x10^3/uL (0.0-0.7) Basophils # (Auto) 0.0 x10^3/uL (0.0-0.2) Platelet Estimate Adequate (ADEQUATE) Polychromasia Occasional Poikilocytosis Slight Anisocytosis Mod Prothrombin Time 13.3 SEC (11.7-14.0) Prothrombin Time INR 1.1 (0.8-1.1) Sodium Level 142 mmol/L (136-145) Potassium Level 4.3 mmol/L (3.5-5.1) Chloride Level 106 mmol/L (98-107) Carbon Dioxide Level 24 mmol/L (21-32) Anion Gap 12 (6-14) Blood Urea Nitrogen 53 mg/dL (7-20) H Creatinine 4.7 mg/dL (0.6-1.0) H Estimated GFR (Cockcroft-Gault) 11.3 BUN/Creatinine Ratio 11 (6-20) Glucose Level 265 mg/dL (70-99) H Calcium Level 8.1 mg/dL (8.5-10.1) L Total Bilirubin 0.4 mg/dL (0.2-1.0) Aspartate Amino Transferase (AST) 73 U/L (15-37) H Alanine Aminotransferase (ALT) 71 U/L (14-59) H Alkaline Phosphatase 139 U/L (46-116) H Troponin I Quantitative 0.085 ng/mL (0.000-0.055) UV-Gud-Z-Type Natriuretic Peptide > 04935 pg/mL (0-124) H Total Protein 5.0 g/dL (6.4-8.2) L Albumin 2.5 g/dL (3.4-5.0) L Albumin/Globulin Ratio 1.0 (1.0-1.7) Procalcitonin 0.65 ng/mL (0.00-0.10) H O2 Saturation 97 % (92-99) Arterial Blood pH 7.25 (7.35-7.45) L Arterial Blood pCO2 at Patient Temp 63 mmHg (35-46) *H Arterial Blood pO2 at Patient Temp 119 mmHg (65-108) H Arterial Blood HCO3 27 mmol/L (21-28) Arterial Blood Base Excess -1 mmol/L (-3-3) FiO2 100% Laboratory Tests 03/17/20 08:40 Laboratory Tests 03/17/20 08:40 ECHOCARDIOGRAM ECHOCARDIOGRAM <Conclusion> Technically difficult study aided with the use of Definity. The left ventricle is normal size. The left ventricular systolic function is normal and the ejection fraction is within normal range. The Ejection Fraction is 55-60%. There is no significant aortic valvular stenosis. Doppler and Color Flow revealed no significant aortic regurgitation. Doppler and Color Flow revealed trace mitral valve regurgitation. Doppler and Color Flow revealed no tricuspid valve regurgitation noted. DATE: 09/24/17 1807 STRESS TEST STRESS TEST Conclusion 1. Regadenoson cardioisotope stress test did not show any evidence of ischemia or infarct. 2. Normal left ventricular systolic function with ejection fraction calculated at 69%. 3. Low risk for cardiac events. DATE: 10/15/17 1342 ASSESSMENT/PLAN ASSESSMENT/PLAN 1. Acute respiratory failure, probable PNA. S/p intubation. COVID pending 2. Leukocytosis 3. Mild troponin elevation 4. Acute on chronic diastolic CHF 5. Elevated LFTs 6. ESRD on HD Recommendations Fluid offloading via HD Echo if COVID negative Follow pul recommendations Consider outpatient ischemic evaluation Supportive care Wean pressor support as able. ASTON VARGAS MD 03/17/201917: CARDIAC CONSULT ASSESSMENT/PLAN ASSESSMENT/PLAN Patient seen and examined. Agree with INCENDIARIES SUPERVISOR's assessment and plan. Ac resp failure secondary to ac on chr diastolic HF and probable pneumonia Continue fluid removal with HD per nephrology team Vent management per pulm team Wean pressors off as tolerated Slight trop elevation probably demand ischemia Covid test pending - if negative will proceed with 2D echo Ischemic workup could be considered as outpatient Thank you for your consultation ANAY MARTIN APRN Mar 17, 2020 13:14 ASTON VARGAS MD Mar 17, 2020 19:18
--- NOTE | 2020-03-17 13:39 | PDOC ---
PULMONARY PROGRESS NOTES Vitals Vital Signs Date Time Temp Pulse Resp B/P (MAP) Pulse Ox O2 Delivery O2 Flow Rate FiO2 03/17/20 11:55 92 20 118/76 (90) 93 Ventilator 03/17/20 07:53 97.8 97.8 Labs Laboratory Tests Test 03/17/20 08:30 03/17/20 08:40 03/17/20 08:45 Urine Opiates Screen Neg (NEG) Urine Methadone Screen Neg (NEG) Urine Barbiturates Neg (NEG) Urine Phencyclidine Screen Neg (NEG) Urine Amphetamine/Methamphetamine Neg (NEG) Urine Benzodiazepines Screen Neg (NEG) Urine Cocaine Screen Neg (NEG) Urine Cannabinoids Screen Neg (NEG) Urine Ethyl Alcohol Neg (NEG) White Blood Count 12.1 x10^3/uL (4.0-11.0) Red Blood Count 2.57 x10^6/uL (3.50-5.40) Hemoglobin 8.0 g/dL (12.0-15.5) Hematocrit 25.2 % (36.0-47.0) Mean Corpuscular Volume 98 fL (79-100) Mean Corpuscular Hemoglobin 31 pg (25-35) Mean Corpuscular Hemoglobin Concent 32 g/dL (31-37) Red Cell Distribution Width 21.5 % (11.5-14.5) Platelet Count 178 x10^3/uL (140-400) Neutrophils (%) (Auto) 77 % (31-73) Lymphocytes (%) (Auto) 20 % (24-48) Monocytes (%) (Auto) 3 % (0-9) Eosinophils (%) (Auto) 0 % (0-3) Basophils (%) (Auto) 0 % (0-3) Neutrophils # (Auto) 9.3 x10^3/uL (1.8-7.7) Lymphocytes # (Auto) 2.4 x10^3/uL (1.0-4.8) Monocytes # (Auto) 0.4 x10^3/uL (0.0-1.1) Eosinophils # (Auto) 0.0 x10^3/uL (0.0-0.7) Basophils # (Auto) 0.0 x10^3/uL (0.0-0.2) Platelet Estimate Adequate (ADEQUATE) Polychromasia Occasional Poikilocytosis Slight Anisocytosis Mod Prothrombin Time 13.3 SEC (11.7-14.0) Prothromb Time International Ratio 1.1 (0.8-1.1) Sodium Level 142 mmol/L (136-145) Potassium Level 4.3 mmol/L (3.5-5.1) Chloride Level 106 mmol/L (98-107) Carbon Dioxide Level 24 mmol/L (21-32) Anion Gap 12 (6-14) Blood Urea Nitrogen 53 mg/dL (7-20) Creatinine 4.7 mg/dL (0.6-1.0) Estimated GFR (Cockcroft-Gault) 11.3 BUN/Creatinine Ratio 11 (6-20) Glucose Level 265 mg/dL (70-99) Calcium Level 8.1 mg/dL (8.5-10.1) Total Bilirubin 0.4 mg/dL (0.2-1.0) Aspartate Amino Transf (AST/SGOT) 73 U/L (15-37) Alanine Aminotransferase (ALT/SGPT) 71 U/L (14-59) Alkaline Phosphatase 139 U/L (46-116) Troponin I Quantitative 0.085 ng/mL (0.000-0.055) QO-Oqx-Z-Type Natriuretic Peptide > 89670 pg/mL (0-124) Total Protein 5.0 g/dL (6.4-8.2) Albumin 2.5 g/dL (3.4-5.0) Albumin/Globulin Ratio 1.0 (1.0-1.7) Procalcitonin 0.65 ng/mL (0.00-0.10) O2 Saturation 97 % (92-99) Arterial Blood pH 7.25 (7.35-7.45) Arterial Blood pCO2 at Patient Temp 63 mmHg (35-46) Arterial Blood pO2 at Patient Temp 119 mmHg (65-108) Arterial Blood HCO3 27 mmol/L (21-28) Arterial Blood Base Excess -1 mmol/L (-3-3) FiO2 100% Laboratory Tests Test 03/17/20 08:30 03/17/20 08:40 03/17/20 08:45 Urine Opiates Screen Neg (NEG) Urine Methadone Screen Neg (NEG) Urine Barbiturates Neg (NEG) Urine Phencyclidine Screen Neg (NEG) Urine Amphetamine/Methamphetamine Neg (NEG) Urine Benzodiazepines Screen Neg (NEG) Urine Cocaine Screen Neg (NEG) Urine Cannabinoids Screen Neg (NEG) Urine Ethyl Alcohol Neg (NEG) White Blood Count 12.1 x10^3/uL (4.0-11.0) Red Blood Count 2.57 x10^6/uL (3.50-5.40) Hemoglobin 8.0 g/dL (12.0-15.5) Hematocrit 25.2 % (36.0-47.0) Mean Corpuscular Volume 98 fL (79-100) Mean Corpuscular Hemoglobin 31 pg (25-35) Mean Corpuscular Hemoglobin Concent 32 g/dL (31-37) Red Cell Distribution Width 21.5 % (11.5-14.5) Platelet Count 178 x10^3/uL (140-400) Neutrophils (%) (Auto) 77 % (31-73) Lymphocytes (%) (Auto) 20 % (24-48) Monocytes (%) (Auto) 3 % (0-9) Eosinophils (%) (Auto) 0 % (0-3) Basophils (%) (Auto) 0 % (0-3) Neutrophils # (Auto) 9.3 x10^3/uL (1.8-7.7) Lymphocytes # (Auto) 2.4 x10^3/uL (1.0-4.8) Monocytes # (Auto) 0.4 x10^3/uL (0.0-1.1) Eosinophils # (Auto) 0.0 x10^3/uL (0.0-0.7) Basophils # (Auto) 0.0 x10^3/uL (0.0-0.2) Platelet Estimate Adequate (ADEQUATE) Polychromasia Occasional Poikilocytosis Slight Anisocytosis Mod Prothrombin Time 13.3 SEC (11.7-14.0) Prothromb Time International Ratio 1.1 (0.8-1.1) Sodium Level 142 mmol/L (136-145) Potassium Level 4.3 mmol/L (3.5-5.1) Chloride Level 106 mmol/L (98-107) Carbon Dioxide Level 24 mmol/L (21-32) Anion Gap 12 (6-14) Blood Urea Nitrogen 53 mg/dL (7-20) Creatinine 4.7 mg/dL (0.6-1.0) Estimated GFR (Cockcroft-Gault) 11.3 BUN/Creatinine Ratio 11 (6-20) Glucose Level 265 mg/dL (70-99) Calcium Level 8.1 mg/dL (8.5-10.1) Total Bilirubin 0.4 mg/dL (0.2-1.0) Aspartate Amino Transf (AST/SGOT) 73 U/L (15-37) Alanine Aminotransferase (ALT/SGPT) 71 U/L (14-59) Alkaline Phosphatase 139 U/L (46-116) Troponin I Quantitative 0.085 ng/mL (0.000-0.055) UM-Uyk-D-Type Natriuretic Peptide > 01201 pg/mL (0-124) Total Protein 5.0 g/dL (6.4-8.2) Albumin 2.5 g/dL (3.4-5.0) Albumin/Globulin Ratio 1.0 (1.0-1.7) Procalcitonin 0.65 ng/mL (0.00-0.10) O2 Saturation 97 % (92-99) Arterial Blood pH 7.25 (7.35-7.45) Arterial Blood pCO2 at Patient Temp 63 mmHg (35-46) Arterial Blood pO2 at Patient Temp 119 mmHg (65-108) Arterial Blood HCO3 27 mmol/L (21-28) Arterial Blood Base Excess -1 mmol/L (-3-3) FiO2 100% Medications Active Scripts Medications Dose Route/Sig Max Daily Dose Days Date Category [place] 5-325 Tablet (Acetaminophen/Hydrocodone Bitart) 1 Each Tablet 1-2 Tab PO Q4-6HRS 12/03/17 Rx Indomethacin 50 Mg Capsule 1 Cap PO TID 12/03/17 Rx Meclizine Hcl 12.5 Mg Tablet 25 Mg PO TID 7 09/08/17 Rx Calcium Gummies (Calcium Phosphate Trib/Vit D3) 1 Each Tab.chew 1 Each PO DAILY 09/06/17 Reported Omeprazole 20 Mg Tablet.dr 20 Mg PO DAILY PRN 04/01/17 Reported Impression . Full note dictated Acute hypoxemic respiratory failure secondary to acute pulmonary edema ARMINDA MALCOLM MD Mar 17, 2020 13:39
--- NOTE | 2020-03-17 13:41 | PDOC2 ---
CONSULT Date of Consult Date of Consult DATE: 03/17/20 TIME: 13:28 Reason for Consult Reason for Consult: ESRD Identification/Chief Complaint Chief Complaint Unable to Pt Intubated on M/V Source Source: Chart review History of Present Illness Reason for Visit: Hx obtained from Chart review, Pt Intubated , on MV Pt is a 64 year old CF hx of Payal's, ESRD on HD (Dr. Chan's Pt) ,Dx of Franks who presents with sudden onset of SOB since 530 this AM and called paramedics who brought her to ED.In the ER sats found to be low she was initially placed on BIPAP then intubated. She is on HD TTHSAT, started recently during her hospitalization at [facility] in Late January /early March , initially Dx with GILDA She did not miss any HD treatment Past Medical History Past Medical History Franks Cardiovascular: Other Pulmonary: Bronchitis GI: GERD Heme/Onc: Cancer Hepatobiliary: No pertinent hx Psych: Anxiety Rheumatologic: Other (Leeroy) Infectious disease: No pertinent hx Renal/: No pertinent hx Endocrine: No pertinent hx Past Surgical History Past Surgical History: Other Family History Family History: Coronary Artery Disease, Diabetes, Hypertension Social History ALCOHOL: none Drugs: None Lives: with Family Current Problem List Problem List Problems Medical Problems: (1) Acute respiratory failure Status: Acute Current Medications Current Medications Current Medications Etomidate (Amidate) 20 mg STK-MED ONCE IV ; Start 03/17/20 at 08:10; Stop 03/17/20 at 08:10; Status DC Rocuronium Black (Zemuron) 50 mg STK-MED ONCE .ROUTE ; Start 03/17/20 at 08: 10; Stop 03/17/20 at 08:11; Status DC Propofol 50 ml @ As Directed STK-MED ONCE IV ; Start 03/17/20 at 08:16; Stop 03/17/20 at 08:17; Status DC Aspirin (Aspirin Rectal Supp) 300 mg 1X STAT SC Last administered on 03/17/20at 09:17; Start 03/17/20 at 08:42; Stop 03/17/20 at 08:58; Status DC Piperacillin Sod/ Tazobactam Sod 2.25 gm/Sodium Chloride 50 ml @ 100 mls/hr 1X ONCE IV Last administered on 03/17/20at 09:16; Start 03/17/20 at 09:00; Stop 03/17/20 at 09:29; Status DC Fentanyl Citrate (Fentanyl 2ml Vial) 100 mcg 1X ONCE IV Last administered on 03/17/20at 09:15; Start 03/17/20 at 09:00; Stop 03/17/20 at 09:01; Status DC Etomidate (Amidate) 20 mg 1X ONCE IV Last administered on 03/17/20at 09:20; Start 03/17/20 at 09:30; Stop 03/17/20 at 09:31; Status DC Rocuronium Black (Zemuron) 100 mg 1X ONCE IV Last administered on 03/17/20at 09:20; Start 03/17/20 at 09:30; Stop 03/17/20 at 09:31; Status DC Sodium Chloride 1,000 ml @ 1,000 mls/hr 1X ONCE IV Last administered on 03/17/20at 09:21; Start 03/17/20 at 09:30; Stop 03/17/20 at 10:29; Status DC Propofol (Diprivan) 500 mg 1X ONCE IV Last administered on 03/17/20at 08:15; Start 03/17/20 at 09:30; Stop 03/17/20 at 09:39; Status DC Norepinephrine Bitartrate 8 mg/ Dextrose 258 ml @ 19.35 mls/ hr 1X ONCE IV Last administered on 03/17/20at 11:41; Start 03/17/20 at 11:30; Stop 03/18/20 at 00:49 Fentanyl Citrate (Fentanyl 2ml Vial) 100 mcg 1X ONCE IVP Last administered on 03/17/20at 11:42; Start 03/17/20 at 11:30; Stop 03/17/20 at 11:31; Status DC Propofol 50 ml @ As Directed STK-MED ONCE IV ; Start 03/17/20 at 11:45; Stop 03/17/20 at 11:45; Status DC Propofol 50 ml @ 1.5 mls/hr 1X ONCE IV Last administered on 03/17/20at 11:51; Start 03/17/20 at 12:00; Stop 03/18/20 at 21:19 Sodium Chloride 250 ml @ 250 mls/hr 1X ONCE IV ; Start 03/17/20 at 12:00; Stop 03/17/20 at 12:59; Status DC Piperacillin Sod/ Tazobactam Sod (Zosyn Per Pharmacy) 1 each PRN DAILY PRN MC SEE COMMENTS; Start 03/17/20 at 12:15 Info (PHARMACY MONITORING -- do not chart) 1 each PRN DAILY PRN MC SEE COMMENTS; Start 03/17/20 at 12:15 Piperacillin Sod/ Tazobactam Sod 2.25 gm/Sodium Chloride 50 ml @ 100 mls/hr Q8HRS IV ; Start 03/17/20 at 14:00 Pantoprazole Sodium (PROTONIX VIAL for IV PUSH) 40 mg DAILYAC IVP ; Start 03/18/20 at 07:30 Heparin Sodium (Porcine) (Heparin Sodium) 5,000 unit Q8HRS SQ ; Start 03/17/20 at 14:00 Fentanyl Citrate 30 ml @ 2.5 mls/hr CONT PRN IV SEE PROTOCOL; Start 03/17/20 at 12:30 Propofol 100 ml @ 3 mls/hr CONT PRN IV SEE PROTOCOL; Start 03/17/20 at 12:30 Midazolam HCl 100 ml @ 1 mls/hr CONT PRN IV SEE PROTOCOL; Start 03/17/20 at 12:30 Sodium Chloride 1,000 ml @ 1,000 mls/hr Q1H PRN IV hypotension; Start 03/17/20 at 13:00; Stop 03/17/20 at 18:59 Albumin Human 200 ml @ 200 mls/hr 1X PRN PRN IV Hypotension; Start 03/17/20 at 13:00; Stop 03/17/20 at 18:59 Sodium Chloride (Normal Saline Flush) 10 ml 1X PRN PRN IV AP catheter pack; Start 03/17/20 at 13:00; Stop 03/17/20 at 19:00 Sodium Chloride (Normal Saline Flush) 10 ml 1X PRN PRN IV MACHINE PACKAGING TECHNICIAN catheter pack; St art 03/17/20 at 13:00; Stop 03/17/20 at 19:00 Sodium Chloride 1,000 ml @ 400 mls/hr Q2H30M PRN IV PATENCY; Start 03/17/20 at 13:00; Stop 03/18/20 at 00:59 Info (PHARMACY MONITORING -- do not chart) 1 each PRN DAILY PRN MC SEE COMMENTS; Start 03/17/20 at 13:00; Status UNV Info (PHARMACY MONITORING -- do not chart) 1 each PRN DAILY PRN MC SEE COMMENTS; Start 03/17/20 at 13:00; Status UNV Active Scripts Active [place] 5-325 Tablet (Acetaminophen/Hydrocodone Bitart) 1 Each Tablet 1-2 Tab PO Q4-6HRS Indomethacin 50 Mg Capsule 1 Cap PO TID Meclizine Hcl 12.5 Mg Tablet 25 Mg PO TID 7 Days Reported Calcium Gummies (Calcium Phosphate Trib/Vit D3) 1 Each Tab.chew 1 Each PO DAILY Omeprazole 20 Mg Tablet.dr 20 Mg PO DAILY PRN Allergies Allergies: Coded Allergies: Sulfa (Sulfonamide Antibiotics) (Verified Allergy, Intermediate, 12/03/17) ROS Review of System Unbale to Obtain 2/2 MV Physical Exam Physical Exam GENERAL: intubated on vent HEENT: Head normocephalic, atraumatic. NECK: Supple LUNGS: Decreased BS HEART: RRR, S1, S2 present ABDOMEN: Soft, positive bowel sounds. EXTREMITIES: No cyanosis or edema. NEUROLOGIC: Intubated, sedated PSYCHIATRIC: Intubated . SKIN: No rash Vital Signs Vital Signs Date Time Temp Pulse Resp B/P (MAP) Pulse Ox O2 Delivery O2 Flow Rate FiO2 03/17/20 11:55 92 20 118/76 (90) 93 Ventilator 03/17/20 07:53 97.8 97.8 Assessment & Plan ESRD- On HD TTS under Dr. Chan's care Dialysis Today with UF , Tx plan Dw Sri Acute Hypoxic Resp Failure- Alveolar edema/PNA - Intubated in ER, on MV Suspected COVID-19- pending, was negative a week back Obesity Anemia Payal's Dz Labs Labs Laboratory Tests Test 03/17/20 08:30 03/17/20 08:40 03/17/20 08:45 Urine Opiates Screen Neg (NEG) Urine Methadone Screen Neg (NEG) Urine Barbiturates Neg (NEG) Urine Phencyclidine Screen Neg (NEG) Urine Amphetamine/Methamphetamine Neg (NEG) Urine Benzodiazepines Screen Neg (NEG) Urine Cocaine Screen Neg (NEG) Urine Cannabinoids Screen Neg (NEG) Urine Ethyl Alcohol Neg (NEG) White Blood Count 12.1 x10^3/uL (4.0-11.0) Red Blood Count 2.57 x10^6/uL (3.50-5.40) Hemoglobin 8.0 g/dL (12.0-15.5) Hematocrit 25.2 % (36.0-47.0) Mean Corpuscular Volume 98 fL (79-100) Mean Corpuscular Hemoglobin 31 pg (25-35) Mean Corpuscular Hemoglobin Concent 32 g/dL (31-37) Red Cell Distribution Width 21.5 % (11.5-14.5) Platelet Count 178 x10^3/uL (140-400) Neutrophils (%) (Auto) 77 % (31-73) Lymphocytes (%) (Auto) 20 % (24-48) Monocytes (%) (Auto) 3 % (0-9) Eosinophils (%) (Auto) 0 % (0-3) Basophils (%) (Auto) 0 % (0-3) Neutrophils # (Auto) 9.3 x10^3/uL (1.8-7.7) Lymphocytes # (Auto) 2.4 x10^3/uL (1.0-4.8) Monocytes # (Auto) 0.4 x10^3/uL (0.0-1.1) Eosinophils # (Auto) 0.0 x10^3/uL (0.0-0.7) Basophils # (Auto) 0.0 x10^3/uL (0.0-0.2) Platelet Estimate Adequate (ADEQUATE) Polychromasia Occasional Poikilocytosis Slight Anisocytosis Mod Prothrombin Time 13.3 SEC (11.7-14.0) Prothromb Time International Ratio 1.1 (0.8-1.1) Sodium Level 142 mmol/L (136-145) Potassium Level 4.3 mmol/L (3.5-5.1) Chloride Level 106 mmol/L (98-107) Carbon Dioxide Level 24 mmol/L (21-32) Anion Gap 12 (6-14) Blood Urea Nitrogen 53 mg/dL (7-20) Creatinine 4.7 mg/dL (0.6-1.0) Estimated GFR (Cockcroft-Gault) 11.3 BUN/Creatinine Ratio 11 (6-20) Glucose Level 265 mg/dL (70-99) Calcium Level 8.1 mg/dL (8.5-10.1) Total Bilirubin 0.4 mg/dL (0.2-1.0) Aspartate Amino Transf (AST/SGOT) 73 U/L (15-37) Alanine Aminotransferase (ALT/SGPT) 71 U/L (14-59) Alkaline Phosphatase 139 U/L (46-116) Troponin I Quantitative 0.085 ng/mL (0.000-0.055) BD-Isv-L-Type Natriuretic Peptide > 65315 pg/mL (0-124) Total Protein 5.0 g/dL (6.4-8.2) Albumin 2.5 g/dL (3.4-5.0) Albumin/Globulin Ratio 1.0 (1.0-1.7) Procalcitonin 0.65 ng/mL (0.00-0.10) O2 Saturation 97 % (92-99) Arterial Blood pH 7.25 (7.35-7.45) Arterial Blood pCO2 at Patient Temp 63 mmHg (35-46) Arterial Blood pO2 at Patient Temp 119 mmHg (65-108) Arterial Blood HCO3 27 mmol/L (21-28) Arterial Blood Base Excess -1 mmol/L (-3-3) FiO2 100% Laboratory Tests Test 03/17/20 08:30 03/17/20 08:40 03/17/20 08:45 Urine Opiates Screen Neg (NEG) Urine Methadone Screen Neg (NEG) Urine Barbiturates Neg (NEG) Urine Phencyclidine Screen Neg (NEG) Urine Amphetamine/Methamphetamine Neg (NEG) Urine Benzodiazepines Screen Neg (NEG) Urine Cocaine Screen Neg (NEG) Urine Cannabinoids Screen Neg (NEG) Urine Ethyl Alcohol Neg (NEG) White Blood Count 12.1 x10^3/uL (4.0-11.0) Red Blood Count 2.57 x10^6/uL (3.50-5.40) Hemoglobin 8.0 g/dL (12.0-15.5) Hematocrit 25.2 % (36.0-47.0) Mean Corpuscular Volume 98 fL (79-100) Mean Corpuscular Hemoglobin 31 pg (25-35) Mean Corpuscular Hemoglobin Concent 32 g/dL (31-37) Red Cell Distribution Width 21.5 % (11.5-14.5) Platelet Count 178 x10^3/uL (140-400) Neutrophils (%) (Auto) 77 % (31-73) Lymphocytes (%) (Auto) 20 % (24-48) Monocytes (%) (Auto) 3 % (0-9) Eosinophils (%) (Auto) 0 % (0-3) Basophils (%) (Auto) 0 % (0-3) Neutrophils # (Auto) 9.3 x10^3/uL (1.8-7.7) Lymphocytes # (Auto) 2.4 x10^3/uL (1.0-4.8) Monocytes # (Auto) 0.4 x10^3/uL (0.0-1.1) Eosinophils # (Auto) 0.0 x10^3/uL (0.0-0.7) Basophils # (Auto) 0.0 x10^3/uL (0.0-0.2) Platelet Estimate Adequate (ADEQUATE) Polychromasia Occasional Poikilocytosis Slight Anisocytosis Mod Prothrombin Time 13.3 SEC (11.7-14.0) Prothromb Time International Ratio 1.1 (0.8-1.1) Sodium Level 142 mmol/L (136-145) Potassium Level 4.3 mmol/L (3.5-5.1) Chloride Level 106 mmol/L (98-107) Carbon Dioxide Level 24 mmol/L (21-32) Anion Gap 12 (6-14) Blood Urea Nitrogen 53 mg/dL (7-20) Creatinine 4.7 mg/dL (0.6-1.0) Estimated GFR (Cockcroft-Gault) 11.3 BUN/Creatinine Ratio 11 (6-20) Glucose Level 265 mg/dL (70-99) Calcium Level 8.1 mg/dL (8.5-10.1) Total Bilirubin 0.4 mg/dL (0.2-1.0) Aspartate Amino Transf (AST/SGOT) 73 U/L (15-37) Alanine Aminotransferase (ALT/SGPT) 71 U/L (14-59) Alkaline Phosphatase 139 U/L (46-116) Troponin I Quantitative 0.085 ng/mL (0.000-0.055) BB-Ofb-F-Type Natriuretic Peptide > 62416 pg/mL (0-124) Total Protein 5.0 g/dL (6.4-8.2) Albumin 2.5 g/dL (3.4-5.0) Albumin/Globulin Ratio 1.0 (1.0-1.7) Procalcitonin 0.65 ng/mL (0.00-0.10) O2 Saturation 97 % (92-99) Arterial Blood pH 7.25 (7.35-7.45) Arterial Blood pCO2 at Patient Temp 63 mmHg (35-46) Arterial Blood pO2 at Patient Temp 119 mmHg (65-108) Arterial Blood HCO3 27 mmol/L (21-28) Arterial Blood Base Excess -1 mmol/L (-3-3) FiO2 100% Review All relevant outside records, renal labs, imaging studies, telemetry/EKG's were reviewed. Images Images CXR-- 1. Support device positioning, as above, to include an endotracheal tube which approaches the torsten. 2. Basilar predominant consolidative opacities on both the right and left on a background of generalized increased interstitial markings and bronchial wall thickening. Interstitial and alveolar edema is a consideration though multifocal pneumonia is not excluded. Recommend short interval follow-up to confirm improvement. COLLIN GUTIERREZ MD Mar 17, 2020 13:40
[2020-03-17] MEDS: HEPARIN for SUB-Q USE 5,000 UNIT/ML VIAL. SQ SCH ×2 (13:47→21:51)
[2020-03-17] MEDS: PIPERACILLIN/TAZOBACTAM 2.25 GM in IV NORMAL SALINE 50ML 50 ML IV SCH ×2 (13:47→22:03)
[2020-03-17 14:11] LABS: BASE EXCESS ABG -1 mmol/L (-3-3); HCO3 ABG 24 mmol/L (21-28); PCO2 ABG 37 mmHg (35-46); PO2 ABG 149 mmHg (65-108); SAT O2 ABG 99 % (92-99)
[2020-03-17 14:13] LABS: FIO2 ABG 80%
[2020-03-17] MEDS: PROPOFOL 100 ML IV PRN ×2 (14:27→22:02)
[2020-03-17] MEDS ORDERED: C.DIFF MED SCREEN BY RX. MC ONE (14:45)
--- NOTE | 2020-03-17 15:24 | NUR ---
Pt arrived to [facility] 115 @ 1235 via ED gurney. Pt sedated with propofol. Levophed infusing through right femoral line. Pt placed supine on ICU bed. Head to Toe assessment completed. Consults have been called and rounded on pt. called the unit and was updated on pt condition. Admission questions were answered by him. 1500: Dialysis in process in room. Pt remains on Levophed @ 22.5ml.hr.
[2020-03-17] MEDS ORDERED: ZOLP5TAB PO (15:52)
[2020-03-17] MEDS ORDERED: CALC667T4 PO (15:52)
[2020-03-17] MEDS ORDERED: ATOR10TA60 PO (15:52)
[2020-03-17] MEDS ORDERED: PANT40TA77 PO (15:52)
--- NOTE | 2020-03-17 15:53 | NUR ---
Medication Rec completed via telephone with [facility].
--- NOTE | 2020-03-17 16:57 | CONS ---
DATE OF CONSULTATION: 03/17/2020 ATTENDING PHYSICIAN: Jose Antonio Menard MD REASON FOR CONSULTATION: The patient seen in pulmonary consultation at the request of Dr. Menard for acute respiratory failure requiring mechanical ventilation. Initial arterial blood gas; pH of 7.25, PaCO2 of 63, pO2 of 119. HISTORY OF PRESENT ILLNESS: The patient is a 64-year-old that became acutely short of breath at 5:30 a.m. this morning. EMS was summoned. The patient has a history of Merna's, end-stage renal disease, on hemodialysis. Initially, the patient was placed on BiPAP. She did not tolerate BiPAP. She was intubated. According to the current documentation, she did not miss hemodialysis this week. I have reviewed her x-ray, and x-ray reveals acute infiltrates compatible with acute CHF. There is no history given of any COVID-19 exposures. PAST MEDICAL HISTORY: End-stage renal disease, bronchitis, gastroesophageal reflux cancer etiology, primary unknown, anxiety, history of Merna's. PAST SURGICAL HISTORY: No recent major surgeries. FAMILY HISTORY: Diabetes, hypertension, coronary artery disease. ALLERGIES: SULFA. CURRENT MEDICATIONS: List was reviewed. SOCIAL HISTORY: It is unknown if she smokes. REVIEW OF SYSTEMS: Unobtainable secondary to the patient's condition. PHYSICAL EXAMINATION: GENERAL: The patient was in the Intensive care unit, sedated on assist control ventilation volume. She was switched over to pressure control as a consequence of severe elevation in peak airway pressures. HEENT: Eyes, the sclerae were nonicteric. NECK: Jugular venous distention was not elevated. No lymphadenopathy. CHEST: Full expansion. LUNGS: Crackles throughout both lung borges. CARDIOVASCULAR: Regular rate and rhythm with S1, S2, no S3. ABDOMEN: Soft, nontender, nondistended. EXTREMITIES: No clubbing, cyanosis. Minimal edema. NEUROLOGICAL: The patient was sedated. LABORATORY DATA: Reviewed as indicated above. INR was 1.1. Electrolytes were normal. BUN and creatinine were elevated. BNP was elevated. Troponin was elevated. Procalcitonin was elevated. Arterial blood as indicated above. White count was 12.1. IMPRESSION: 1. Acute hypoxemic respiratory failure. 2. Metabolic acidosis secondary to increased work of breathing. 3. Acute pulmonary edema. 4. End-stage renal disease. 5. Acute metabolic encephalopathy. 6. Elevated troponin, suspect demand ischemia. 7. Obesity. 8. History of Merna's. PLAN: 1. Recommend emergent hemodialysis. 2. Continue current pressure control ventilation. 3. Clinically, I doubt that this is pneumonia, with that being said, we will continue Zosyn for now. 4. Cardiac consulted for elevated troponin level. 5. DVT prophylaxis. I do appreciate the privilege in sharing in the patient's care. Total cumulative critical care time of 40 minutes reviewing data, chest x-ray, labs, and formulating a plan. ARMINDA MALCOLM MD DR: JAMMIE/erasmo JOB#: [id number] / [id number]
[2020-03-17] MEDS: NOREPINEPHRINE VIAL 8 MG in IV DEXTROSE 5% 250 ML IV PRN (20:25)
--- NOTE | 2020-03-17 20:33 | EKG ---
[facility] [address] [place] [address] Test Date: 2020-03-17 Test Time: 08:40:49 Pat Name: BLAKE BARRIOS Department: Room: Gender: F Accounting Manager Controller: : 1955 Requested By: GLEN GILMORE Order Number: [id number] Reading MD: Measurements Intervals [place] Rate: 139 P: 59 MS: 122 QRS: 50 QRSD: 72 T: 92 QT: 280 QTc: 431 Interpretive Statements SINUS TACHYCARDIA OTHERWISE NORMAL ECG RI6.01 No previous ECG available for comparison
[2020-03-18] VITALS (24 sets, daily range): BP systolic 85–152; BP diastolic 56–81
[2020-03-18] MEDS: PROPOFOL 100 ML IV PRN ×3 (05:05→18:18)
[2020-03-18] MEDS: HEPARIN for SUB-Q USE 5,000 UNIT/ML VIAL. SQ SCH ×3 (05:49→21:46)
[2020-03-18] MEDS: PIPERACILLIN/TAZOBACTAM 2.25 GM in IV NORMAL SALINE 50ML 50 ML IV SCH ×3 (05:49→21:47)
[2020-03-18] MEDS: PANTOPRAZOLE IV PUSH 40 MG VIAL. IVP SCH (08:08)
[2020-03-18 08:35] LABS: BASE EXCESS ABG 5 mmol/L (-3-3); HCO3 ABG 26 mmol/L (21-28); PCO2 ABG 26 mmHg (35-46); PO2 ABG 154 mmHg (65-108); SAT O2 ABG 99 % (92-99)
[2020-03-18 08:38] LABS: FIO2 ABG 50
--- NOTE | 2020-03-18 08:53 | PDOC ---
SUBJECTIVE ROS Remains intubated, on Vent. Currently on low dose Levophed OBJECTIVE Vital Signs Vital Signs Date Time Temp Pulse Resp B/P (MAP) Pulse Ox O2 Delivery O2 Flow Rate FiO2 03/18/20 06:00 113 24 108/64 (79) 100 Ventilator 03/18/20 04:00 98.4 98.4 I & 0 Intake and Output 03/18/20 07:00 Intake Total 1825.4 ml Output Total 431 ml Balance 1394.4 ml Intake IV Total 1825.4 ml Output Urine Total 431 ml PHYSICAL EXAM Physical Exam GENERAL: intubated on vent HEENT: Head normocephalic, atraumatic. NECK: Supple LUNGS: Decreased BS HEART: RRR, S1, S2 present ABDOMEN: Soft, positive bowel sounds. EXTREMITIES: No cyanosis or edema. NEUROLOGIC: Intubated, sedated PSYCHIATRIC: Intubated . SKIN: No rash [place] + DIAGNOSIS/ASSESSMENT Assessment & Plan ESRD- On HD TTS under Dr. Chan's care Dialysis yesterday, UF only 1.5 ,E-Lytes stable today, No emergent indication for HD currently Has some RRF Hypotensive- on Pressor , Dialysis tomorrow Acute Hypoxic Resp Failure- Alveolar edema/PNA - Intubated in ER, on MV Suspected COVID-19- pending, was negative a week back Obesity Anemia - On MEMO Payal'chayo Baum COMMENT/RELEVANT DATA Meds Current Medications Medications (Trade) Dose Ordered Sig/Solomon Start Time Stop Time Status Last Admin Dose Admin Albumin Human 200 ml @ 200 mls/hr 1X PRN PRN 03/17/20 13:00 03/17/20 18:59 DC Aspirin (Aspirin Rectal Supp) 300 mg 1X STAT 03/17/20 08:42 03/17/20 08:58 DC 03/17/20 09:17 300 MG Etomidate (Amidate) 20 mg 1X ONCE 03/17/20 09:30 03/17/20 09:31 DC 03/17/20 09:20 20 MG Fentanyl Citrate 30 ml @ 2.5 mls/hr CONT PRN 03/17/20 12:30 Fentanyl Citrate (Fentanyl 2ml Vial) 100 mcg 1X ONCE 03/17/20 11:30 03/17/20 11:31 DC 03/17/20 11:42 100 MCG Heparin Sodium (Porcine) (Heparin Sodium) 5,000 unit Q8HRS 03/17/20 14:00 03/18/20 05:49 5,000 UNIT Info (PHARMACY MONITORING -- do not chart) 1 each PRN DAILY PRN 03/17/20 13:00 UNV Midazolam HCl 100 ml @ 1 mls/hr CONT PRN 03/17/20 12:30 Norepinephrine Bitartrate 8 mg/ Dextrose 258 ml @ 15.499 mls/ hr CONT PRN 03/17/20 20:15 03/17/20 20:25 15.499 MLS/HR Pantoprazole Sodium (PROTONIX VIAL for IV PUSH) 40 mg DAILYAC 03/18/20 07:30 03/18/20 08:08 40 MG Pharmacy Consult (C.diff Med Screen By Rx) 1 each 1X ONCE 03/17/20 14:45 03/17/20 14:46 UNV Piperacillin Sod/ Tazobactam Sod (Zosyn Per Pharmacy) 1 each PRN DAILY PRN 03/17/20 12:15 Piperacillin Sod/ Tazobactam Sod 2.25 gm/Sodium Chloride 50 ml @ 100 mls/hr Q8HRS 03/17/20 14:00 03/18/20 05:49 100 MLS/HR Propofol 100 ml @ 3 mls/hr CONT PRN 03/17/20 12:30 03/18/20 05:05 3 MLS/HR Propofol (Diprivan) 500 mg 1X ONCE 03/17/20 09:30 03/17/20 09:39 DC 03/17/20 08:15 500 MG Rocuronium Monon (Zemuron) 100 mg 1X ONCE 03/17/20 09:30 03/17/20 09:31 DC 03/17/20 09:20 100 MG Sodium Chloride 1,000 ml @ 400 mls/hr Q2H30M PRN 03/17/20 13:00 03/18/20 00:59 DC Sodium Chloride (Normal Saline Flush) 10 ml 1X PRN PRN 03/17/20 13:00 03/17/20 19:00 DC Lab Laboratory Tests Test 03/17/20 13:20 03/17/20 14:02 03/17/20 17:25 03/18/20 08:25 Lactic Acid Level 2.1 mmol/L (0.4-2.0) 1.0 mmol/L (0.4-2.0) Troponin I Quantitative 0.640 ng/mL (0.000-0.055) 0.718 ng/mL (0.000-0.055) O2 Saturation 99 % (92-99) 99 % (92-99) Arterial Blood pH 7.42 (7.35-7.45) 7.62 (7.35-7.45) Arterial Blood pCO2 at Patient Temp 37 mmHg (35-46) 26 mmHg (35-46) Arterial Blood pO2 at Patient Temp 149 mmHg (65-108) 154 mmHg (65-108) Arterial Blood HCO3 24 mmol/L (21-28) 26 mmol/L (21-28) Arterial Blood Base Excess -1 mmol/L (-3-3) 5 mmol/L (-3-3) FiO2 80% 50 Results All relevant outside records, renal labs, imaging studies, telemetry/EKG's were reviewed. Justicifation of Admission Dx: Justifications for Admission: Justification of Admission Dx: Yes Respiratory Failure: Mechanical Ventilation COLLIN GUTIERREZ MD Mar 18, 2020 08:53
[2020-03-18 09:30] LABS: CALCIUM 7.8 mg/dL (8.5-10.1); CREATININE 3.6 mg/dL (0.6-1.0); GFR 15.4; POTASSIUM 3.7 mmol/L (3.5-5.1)
--- NOTE | 2020-03-18 11:11 | PDOC ---
PROGRESS NOTES Chief Complaint Chief Complaint ASSESSMENT Acute Hypoxic Resp Failure secondary to Volume Overload Suspected COVID- Acute Encephalopathy ESRD on HD Elevated Trop likely demand ischemia Obesity Payal's Dz hx of Vertigo PLAN follow in Vent/Sedation per pulm given elevated procal and ? PNA continue zosyn check covid-19 Pulm Consult Nephro consult for HD cards consult given elevated trop DVT ppx: heparin sq FULL CODE History of Present Illness History of Present Illness remains on vent, sedated. continue abx. HD today. wean vent/sedation as tolerated. Vitals Vitals Vital Signs Date Time Temp Pulse Resp B/P (MAP) Pulse Ox O2 Delivery O2 Flow Rate FiO2 03/18/20 10:00 103 18 112/59 (76) 100 Ventilator 03/18/20 08:00 100.2 100.2 Physical Exam General: Other (vented) Heart: Regular rate, Normal S1, Normal S2 Lungs: Clear, Wheezing Abdomen: Normal bowel sounds Extremities: No clubbing, No cyanosis Skin: No rashes, No breakdown Labs LABS Laboratory Tests Test 03/17/20 13:20 03/17/20 14:02 03/17/20 17:25 03/18/20 08:25 Lactic Acid Level 2.1 mmol/L (0.4-2.0) 1.0 mmol/L (0.4-2.0) Troponin I Quantitative 0.640 ng/mL (0.000-0.055) 0.718 ng/mL (0.000-0.055) O2 Saturation 99 % (92-99) 99 % (92-99) Arterial Blood pH 7.42 (7.35-7.45) 7.62 (7.35-7.45) Arterial Blood pCO2 at Patient Temp 37 mmHg (35-46) 26 mmHg (35-46) Arterial Blood pO2 at Patient Temp 149 mmHg (65-108) 154 mmHg (65-108) Arterial Blood HCO3 24 mmol/L (21-28) 26 mmol/L (21-28) Arterial Blood Base Excess -1 mmol/L (-3-3) 5 mmol/L (-3-3) FiO2 80% 50 Test 03/18/20 09:00 Sodium Level 139 mmol/L (136-145) Potassium Level 3.7 mmol/L (3.5-5.1) Chloride Level 102 mmol/L (98-107) Carbon Dioxide Level 27 mmol/L (21-32) Anion Gap 10 (6-14) Blood Urea Nitrogen 33 mg/dL (7-20) Creatinine 3.6 mg/dL (0.6-1.0) Estimated GFR (Cockcroft-Gault) 15.4 Glucose Level 108 mg/dL (70-99) Calcium Level 7.8 mg/dL (8.5-10.1) Assessment and Plan Assessmemt and Plan Problems Medical Problems: (1) Acute respiratory failure Status: Acute Comment Review of Relevant I have reviewed the following items timur (where applicable) has been applied. Labs Laboratory Tests Test 03/17/20 08:30 03/17/20 08:40 03/17/20 08:45 03/17/20 13:20 Urine Opiates Screen Neg (NEG) Urine Methadone Screen Neg (NEG) Urine Barbiturates Neg (NEG) Urine Phencyclidine Screen Neg (NEG) Urine Amphetamine/Methamphetamine Neg (NEG) Urine Benzodiazepines Screen Neg (NEG) Urine Cocaine Screen Neg (NEG) Urine Cannabinoids Screen Neg (NEG) Urine Ethyl Alcohol Neg (NEG) White Blood Count 12.1 x10^3/uL (4.0-11.0) Red Blood Count 2.57 x10^6/uL (3.50-5.40) Hemoglobin 8.0 g/dL (12.0-15.5) Hematocrit 25.2 % (36.0-47.0) Mean Corpuscular Volume 98 fL (79-100) Mean Corpuscular Hemoglobin 31 pg (25-35) Mean Corpuscular Hemoglobin Concent 32 g/dL (31-37) Red Cell Distribution Width 21.5 % (11.5-14.5) Platelet Count 178 x10^3/uL (140-400) Neutrophils (%) (Auto) 77 % (31-73) Lymphocytes (%) (Auto) 20 % (24-48) Monocytes (%) (Auto) 3 % (0-9) Eosinophils (%) (Auto) 0 % (0-3) Basophils (%) (Auto) 0 % (0-3) Neutrophils # (Auto) 9.3 x10^3/uL (1.8-7.7) Lymphocytes # (Auto) 2.4 x10^3/uL (1.0-4.8) Monocytes # (Auto) 0.4 x10^3/uL (0.0-1.1) Eosinophils # (Auto) 0.0 x10^3/uL (0.0-0.7) Basophils # (Auto) 0.0 x10^3/uL (0.0-0.2) Platelet Estimate Adequate (ADEQUATE) Polychromasia Occasional Poikilocytosis Slight Anisocytosis Mod Prothrombin Time 13.3 SEC (11.7-14.0) Prothromb Time International Ratio 1.1 (0.8-1.1) Sodium Level 142 mmol/L (136-145) Potassium Level 4.3 mmol/L (3.5-5.1) Chloride Level 106 mmol/L (98-107) Carbon Dioxide Level 24 mmol/L (21-32) Anion Gap 12 (6-14) Blood Urea Nitrogen 53 mg/dL (7-20) Creatinine 4.7 mg/dL (0.6-1.0) Estimated GFR (Cockcroft-Gault) 11.3 BUN/Creatinine Ratio 11 (6-20) Glucose Level 265 mg/dL (70-99) Calcium Level 8.1 mg/dL (8.5-10.1) Total Bilirubin 0.4 mg/dL (0.2-1.0) Aspartate Amino Transf (AST/SGOT) 73 U/L (15-37) Alanine Aminotransferase (ALT/SGPT) 71 U/L (14-59) Alkaline Phosphatase 139 U/L (46-116) Troponin I Quantitative 0.085 ng/mL (0.000-0.055) 0.640 ng/mL (0.000-0.055) XJ-Gpt-J-Type Natriuretic Peptide > 99476 pg/mL (0-124) Total Protein 5.0 g/dL (6.4-8.2) Albumin 2.5 g/dL (3.4-5.0) Albumin/Globulin Ratio 1.0 (1.0-1.7) Procalcitonin 0.65 ng/mL (0.00-0.10) O2 Saturation 97 % (92-99) Arterial Blood pH 7.25 (7.35-7.45) Arterial Blood pCO2 at Patient Temp 63 mmHg (35-46) Arterial Blood pO2 at Patient Temp 119 mmHg (65-108) Arterial Blood HCO3 27 mmol/L (21-28) Arterial Blood Base Excess -1 mmol/L (-3-3) FiO2 100% Lactic Acid Level 2.1 mmol/L (0.4-2.0) Test 03/17/20 14:02 03/17/20 17:25 03/18/20 08:25 03/18/20 09:00 O2 Saturation 99 % (92-99) 99 % (92-99) Arterial Blood pH 7.42 (7.35-7.45) 7.62 (7.35-7.45) Arterial Blood pCO2 at Patient Temp 37 mmHg (35-46) 26 mmHg (35-46) Arterial Blood pO2 at Patient Temp 149 mmHg (65-108) 154 mmHg (65-108) Arterial Blood HCO3 24 mmol/L (21-28) 26 mmol/L (21-28) Arterial Blood Base Excess -1 mmol/L (-3-3) 5 mmol/L (-3-3) FiO2 80% 50 Lactic Acid Level 1.0 mmol/L (0.4-2.0) Troponin I Quantitative 0.718 ng/mL (0.000-0.055) Sodium Level 139 mmol/L (136-145) Potassium Level 3.7 mmol/L (3.5-5.1) Chloride Level 102 mmol/L (98-107) Carbon Dioxide Level 27 mmol/L (21-32) Anion Gap 10 (6-14) Blood Urea Nitrogen 33 mg/dL (7-20) Creatinine 3.6 mg/dL (0.6-1.0) Estimated GFR (Cockcroft-Gault) 15.4 Glucose Level 108 mg/dL (70-99) Calcium Level 7.8 mg/dL (8.5-10.1) Laboratory Tests Test 03/17/20 13:20 03/17/20 14:02 03/17/20 17:25 03/18/20 08:25 Lactic Acid Level 2.1 mmol/L (0.4-2.0) 1.0 mmol/L (0.4-2.0) Troponin I Quantitative 0.640 ng/mL (0.000-0.055) 0.718 ng/mL (0.000-0.055) O2 Saturation 99 % (92-99) 99 % (92-99) Arterial Blood pH 7.42 (7.35-7.45) 7.62 (7.35-7.45) Arterial Blood pCO2 at Patient Temp 37 mmHg (35-46) 26 mmHg (35-46) Arterial Blood pO2 at Patient Temp 149 mmHg (65-108) 154 mmHg (65-108) Arterial Blood HCO3 24 mmol/L (21-28) 26 mmol/L (21-28) Arterial Blood Base Excess -1 mmol/L (-3-3) 5 mmol/L (-3-3) FiO2 80% 50 Test 03/18/20 09:00 Sodium Level 139 mmol/L (136-145) Potassium Level 3.7 mmol/L (3.5-5.1) Chloride Level 102 mmol/L (98-107) Carbon Dioxide Level 27 mmol/L (21-32) Anion Gap 10 (6-14) Blood Urea Nitrogen 33 mg/dL (7-20) Creatinine 3.6 mg/dL (0.6-1.0) Estimated GFR (Cockcroft-Gault) 15.4 Glucose Level 108 mg/dL (70-99) Calcium Level 7.8 mg/dL (8.5-10.1) Microbiology 03/17/20 Blood Culture - Preliminary, Resulted NO GROWTH AFTER 1 DAY Medications Current Medications Etomidate (Amidate) 20 mg STK-MED ONCE IV ; Start 03/17/20 at 08:10; Stop 03/17/20 at 08:10; Status DC Rocuronium [place] (Zemuron) 50 mg STK-MED ONCE .ROUTE ; Start 03/17/20 at 08:10; Stop 03/17/20 at 08:11; Status DC Propofol 50 ml @ As Directed STK-MED ONCE IV ; Start 03/17/20 at 08:16; Stop 03/17/20 at 08:17; Status DC Aspirin (Aspirin Rectal Supp) 300 mg 1X STAT OK Last administered on 03/17/20at 09:17; Start 03/17/20 at 08:42; Stop 03/17/20 at 08:58; Status DC Piperacillin Sod/ Tazobactam Sod 2.25 gm/Sodium Chloride 50 ml @ 100 mls/hr 1X ONCE IV Last administered on 03/17/20at 09:16; Start 03/17/20 at 09:00; Stop 03/17/20 at 09:29; Status DC Fentanyl Citrate (Fentanyl 2ml Vial) 100 mcg 1X ONCE IV Last administered on 03/17/20at 09:15; Start 03/17/20 at 09:00; Stop 03/17/20 at 09:01; Status DC Etomidate (Amidate) 20 mg 1X ONCE IV Last administered on 03/17/20at 09:20; Start 03/17/20 at 09:30; Stop 03/17/20 at 09:31; Status DC Rocuronium [place] (Zemuron) 100 mg 1X ONCE IV Last administered on 03/17/20at 09:20; Start 03/17/20 at 09:30; Stop 03/17/20 at 09:31; Status DC Sodium Chloride 1,000 ml @ 1,000 mls/hr 1X ONCE IV Last administered on 03/17/20at 09:21; Start 03/17/20 at 09:30; Stop 03/17/20 at 10:29; Status DC Propofol (Diprivan) 500 mg 1X ONCE IV Last administered on 03/17/20at 08:15; Start 03/17/20 at 09:30; Stop 03/17/20 at 09:39; Status DC Norepinephrine Bitartrate 8 mg/ Dextrose 258 ml @ 19.35 mls/ hr 1X ONCE IV Last administered on 03/17/20at 11:41; Start 03/17/20 at 11:30; Stop 03/18/20 at 00:49; Status DC Fentanyl Citrate (Fentanyl 2ml Vial) 100 mcg 1X ONCE IVP Last administered on 03/17/20at 11:42; Start 03/17/20 at 11:30; Stop 03/17/20 at 11:31; Status DC Propofol 50 ml @ As Directed STK-MED ONCE IV ; Start 03/17/20 at 11:45; Stop 03/17/20 at 11:45; Status DC Propofol 50 ml @ 1.5 mls/hr 1X ONCE IV Last administered on 03/17/20at 11:51; Start 03/17/20 at 12:00; Stop 03/18/20 at 21:19 Sodium Chloride 250 ml @ 250 mls/hr 1X ONCE IV ; Start 03/17/20 at 12:00; Stop 03/17/20 at 12:59; Status DC Piperacillin Sod/ Tazobactam Sod (Zosyn Per Pharmacy) 1 each PRN DAILY PRN MC SEE COMMENTS; Start 03/17/20 at 12:15 Info (PHARMACY MONITORING -- do not chart) 1 each PRN DAILY PRN MC SEE COMMENTS; Start 03/17/20 at 12:15 Piperacillin Sod/ Tazobactam Sod 2.25 gm/Sodium Chloride 50 ml @ 100 mls/hr Q8HRS IV Last administered on 03/18/20at 05:49; Start 03/17/20 at 14:00 Pantoprazole Sodium (PROTONIX VIAL for IV PUSH) 40 mg DAILYAC IVP Last administered on 03/18/20at 08:08; Start 03/18/20 at 07:30 Heparin Sodium (Porcine) (Heparin Sodium) 5,000 unit Q8HRS SQ Last administered on 03/18/20at 05:49; Start 03/17/20 at 14:00 Fentanyl Citrate 30 ml @ 2.5 mls/hr CONT PRN IV SEE PROTOCOL; Start 03/17/20 at 12:30 Propofol 100 ml @ 3 mls/hr CONT PRN IV SEE PROTOCOL Last administered on 03/18/20at 05:05; Start 03/17/20 at 12:30 Midazolam HCl 100 ml @ 1 mls/hr CONT PRN IV SEE PROTOCOL; Start 03/17/20 at 12:30 Sodium Chloride 1,000 ml @ 1,000 mls/hr Q1H PRN IV hypotension; Start 03/17/20 at 13:00; Stop 03/17/20 at 18:59; Status DC Albumin Human 200 ml @ 200 mls/hr 1X PRN PRN IV Hypotension; Start 03/17/20 at 13:00; Stop 03/17/20 at 18:59; Status DC Sodium Chloride (Normal Saline Flush) 10 ml 1X PRN PRN IV AP catheter pack; Start 03/17/20 at 13:00; Stop 03/17/20 at 19:00; Status DC Sodium Chloride (Normal Saline Flush) 10 ml 1X PRN PRN IV 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; Start 03/17/20 at 13:00; Stop 03/17/20 at 19:00; Status DC Sodium Chloride 1,000 ml @ 400 mls/hr Q2H30M PRN IV PATENCY; Start 03/17/20 at 13:00; Stop 03/18/20 at 00:59; Status DC Info (PHARMACY MONITORING -- do not chart) 1 each PRN DAILY PRN MC SEE COMMENTS; Start 03/17/20 at 13:00; Status UNV Info (PHARMACY MONITORING -- do not chart) 1 each PRN DAILY PRN MC SEE C CECILE; Start 03/17/20 at 13:00; Status UNV Pharmacy Consult (C.diff Med Screen By Rx) 1 each 1X ONCE MC ; Start 03/17/20 at 14:45; Stop 03/17/20 at 14:46; Status UNV Norepinephrine Bitartrate 8 mg/ Dextrose 258 ml @ 15.499 mls/ hr CONT PRN IV PER PROTOCOL Last administered on 03/17/20at 20:25; Start 03/17/20 at 20:15 Darbepoetin Juan Luis ([facility] for DIALYSIS PTS) 60 mcg WEEKLYHS SQ ; Start 03/18/20 at 21:00 Active Scripts Active [place] 5-325 Tablet (Acetaminophen/Hydrocodone Bitart) 1 Each Tablet 1-2 Tab PO Q4-6HRS Indomethacin 50 Mg Capsule 1 Cap PO TID Meclizine Hcl 12.5 Mg Tablet 25 Mg PO TID 7 Days Reported Protonix (Pantoprazole Sodium) 40 Mg Tablet. 40 Mg PO DAILYAC Atorvastatin Calcium 10 Mg Tablet 1 Tab PO DAILY Ambien (Zolpidem Tartrate) 5 Mg Tablet 5 Mg PO PRN QHS PRN Calcium Acetate 667 Mg Tablet 1 Tab PO TID 30 Days Calcium Gummies (Calcium Phosphate Trib/Vit D3) 1 Each Tab.chew 1 Each PO DAILY Omeprazole 20 Mg Tablet. 20 Mg PO DAILY PRN Vitals/I & O Vital Sign - Last 24 Hours 03/17/20 03/17/20 03/17/20 03/17/20 11:17 11:41 11:42 11:47 Pulse 108 114 Resp 20 20 20 B/P (MAP) 114/66 (82) 97/70 (79) Pulse Ox 95 96 96 O2 Delivery Ventilator Ventilator Ventilator Ventilator 03/17/20 03/17/20 03/17/20 03/17/20 11:53 11:55 12:05 12:15 Pulse 94 92 92 92 Resp 20 20 20 20 B/P (MAP) 141/80 (100) 118/76 (90) 118/76 (90) 129/74 (92) Pulse Ox 98 93 99 98 O2 Delivery Ventilator Ventilator Ventilator Ventilator 03/17/20 03/17/20 03/17/20 03/17/20 12:27 12:40 12:45 13:00 Temp 98.2 98.2 Pulse 104 98 98 116 Resp 20 21 B/P (MAP) 114/52 (72) 96/64 (75) Pulse Ox 100 100 100 100 O2 Delivery Ventilator Ventilator Ventilator Ventilator 03/17/20 03/17/20 03/17/20 03/17/20 13:00 13:15 13:30 13:44 Pulse 90 90 98 Resp B/P (MAP) 135/83 (100) Pulse Ox 100 100 100 O2 Delivery Mechanical Ventilator Ventilator Ventilator Ventilator 03/17/20 03/17/20 03/17/20 03/17/20 13:45 14:00 14:15 14:30 Pulse 98 88 90 88 Resp B/P (MAP) 119/74 (89) 103/66 (78) 94/71 (79) 105/64 (78) Pulse Ox 100 100 100 100 O2 Delivery Ventilator Ventilator Ventilator Ventilator 03/17/20 03/17/20 03/17/20 03/17/20 15:00 15:09 16:00 16:00 Temp 98.6 98.6 Pulse 88 95 Resp B/P (MAP) 107/61 (76) 122/93 (103) Pulse Ox 100 100 100 O2 Delivery Ventilator Ventilator Mechanical Ventilator Ventilator 03/17/20 03/17/20 03/17/20 03/17/20 17:00 18:00 19:00 19:55 Pulse 105 110 103 Resp 22 B/P (MAP) 113/54 (73) 84/74 (77) 157/75 (102) Pulse Ox 100 100 100 100 O2 Delivery Ventilator Ventilator Ventilator Ventilator 03/17/20 03/17/20 03/17/20 03/17/20 20:00 20:00 21:00 22:00 Temp 98.7 98.7 Pulse 104 97 110 Resp 22 25 B/P (MAP) 113/63 (80) 111/60 (77) 112/72 (85) Pulse Ox 100 100 100 O2 Delivery Mechanical Ventilator Ventilator Ventilator Ventilator 03/17/20 03/17/20 03/17/20/17/20 23:00 23:59 23:59 00:32 Temp 98.1 98.1 Pulse 110 112 Resp 22 B/P (MAP) 132/63 (86) 104/59 (74) Pulse Ox 100 100 100 O2 Delivery Ventilator Mechanical Ventilator Ventilator Ventilator 03/18/20 03/18/20 03/18/20 03/18/20 01:00 02:00 03:00 04:00 Pulse 100 116 114 Resp 22 B/P (MAP) 100/65 (77) 128/77 (94) 104/68 (80) Pulse Ox 100 100 100 O2 Delivery Ventilator Ventilator Ventilator Mechanical Ventilator 03/18/20 03/18/20 03/18/20 03/18/20 04:00 04:52 05:00 06:00 Temp 98.4 98.4 Pulse 116 115 113 Resp 24 B/P (MAP) 120/67 (84) 109/74 (86) 108/64 (79) Pulse Ox 100 100 100 100 O2 Delivery Ventilator Ventilator Ventilator Ventilator 03/18/20 03/18/20 03/18/20 03/18/20 07:00 08:00 08:15 09:00 Temp 100.2 100.2 Pulse 120 121 105 Resp 18 B/P (MAP) 107/64 (78) 99/60 (73) 117/71 (86) Pulse Ox 100 100 100 O2 Delivery Ventilator Ventilator Mechanical Ventilator Ventilator 03/18/20 10:00 Pulse 103 Resp 18 B/P (MAP) 112/59 (76) Pulse Ox 100 O2 Delivery Ventilator Intake and Output 03/17/20 03/17/20 03/18/20 15:00 23:00 07:00 Intake Total 1050 ml 330.4 ml 445 ml Output Total 270 ml 50 ml 131 ml Balance 780 ml 280.4 ml 314 ml Justicifation of Admission Dx: Justifications for Admission: Justification of Admission Dx: Yes Respiratory Failure: Mechanical Ventilation RIGOBERTO ABBOTT MD Mar 18, 2020 11:11
--- NOTE | 2020-03-18 11:56 | PDOC ---
PULMONARY PROGRESS NOTES Subjective Patient sedated, awakens, with stimulation on assist control ventilation Vitals Vital Signs Date Time Temp Pulse Resp B/P (MAP) Pulse Ox O2 Delivery O2 Flow Rate FiO2 03/18/20 10:00 103 18 112/59 (76) 100 Ventilator 03/18/20 08:00 100.2 100.2 Lungs: Clear Cardiovascular: S1, S2 Abdomen: Soft Neuro Exam: Alert Extremities: Other (Edema) Skin: Warm Labs Laboratory Tests Test 03/17/20 08:30 03/17/20 08:40 03/17/20 08:45 03/17/20 13:20 Urine Opiates Screen Neg (NEG) Urine Methadone Screen Neg (NEG) Urine Barbiturates Neg (NEG) Urine Phencyclidine Screen Neg (NEG) Urine Amphetamine/Methamphetamine Neg (NEG) Urine Benzodiazepines Screen Neg (NEG) Urine Cocaine Screen Neg (NEG) Urine Cannabinoids Screen Neg (NEG) Urine Ethyl Alcohol Neg (NEG) White Blood Count 12.1 x10^3/uL (4.0-11.0) Red Blood Count 2.57 x10^6/uL (3.50-5.40) Hemoglobin 8.0 g/dL (12.0-15.5) Hematocrit 25.2 % (36.0-47.0) Mean Corpuscular Volume 98 fL (79-100) Mean Corpuscular Hemoglobin 31 pg (25-35) Mean Corpuscular Hemoglobin Concent 32 g/dL (31-37) Red Cell Distribution Width 21.5 % (11.5-14.5) Platelet Count 178 x10^3/uL (140-400) Neutrophils (%) (Auto) 77 % (31-73) Lymphocytes (%) (Auto) 20 % (24-48) Monocytes (%) (Auto) 3 % (0-9) Eosinophils (%) (Auto) 0 % (0-3) Basophils (%) (Auto) 0 % (0-3) Neutrophils # (Auto) 9.3 x10^3/uL (1.8-7.7) Lymphocytes # (Auto) 2.4 x10^3/uL (1.0-4.8) Monocytes # (Auto) 0.4 x10^3/uL (0.0-1.1) Eosinophils # (Auto) 0.0 x10^3/uL (0.0-0.7) Basophils # (Auto) 0.0 x10^3/uL (0.0-0.2) Platelet Estimate Adequate (ADEQUATE) Polychromasia Occasional Poikilocytosis Slight Anisocytosis Mod Prothrombin Time 13.3 SEC (11.7-14.0) Prothromb Time International Ratio 1.1 (0.8-1.1) Sodium Level 142 mmol/L (136-145) Potassium Level 4.3 mmol/L (3.5-5.1) Chloride Level 106 mmol/L (98-107) Carbon Dioxide Level 24 mmol/L (21-32) Anion Gap 12 (6-14) Blood Urea Nitrogen 53 mg/dL (7-20) Creatinine 4.7 mg/dL (0.6-1.0) Estimated GFR (Cockcroft-Gault) 11.3 BUN/Creatinine Ratio 11 (6-20) Glucose Level 265 mg/dL (70-99) Calcium Level 8.1 mg/dL (8.5-10.1) Total Bilirubin 0.4 mg/dL (0.2-1.0) Aspartate Amino Transf (AST/SGOT) 73 U/L (15-37) Alanine Aminotransferase (ALT/SGPT) 71 U/L (14-59) Alkaline Phosphatase 139 U/L (46-116) Troponin I Quantitative 0.085 ng/mL (0.000-0.055) 0.640 ng/mL (0.000-0.055) OX-Crx-[id number]-Type Natriuretic Peptide > 57215 pg/mL (0-124) Total Protein 5.0 g/dL (6.4-8.2) Albumin 2.5 g/dL (3.4-5.0) Albumin/Globulin Ratio 1.0 (1.0-1.7) Procalcitonin 0.65 ng/mL (0.00-0.10) O2 Saturation 97 % (92-99) Arterial Blood pH 7.25 (7.35-7.45) Arterial Blood pCO2 at Patient Temp 63 mmHg (35-46) Arterial Blood pO2 at Patient Temp 119 mmHg (65-108) Arterial Blood HCO3 27 mmol/L (21-28) Arterial Blood Base Excess -1 mmol/L (-3-3) FiO2 100% Lactic Acid Level 2.1 mmol/L (0.4-2.0) Test 03/17/20 14:02 03/17/20 17:25 03/18/20 08:25 03/18/20 09:00 O2 Saturation 99 % (92-99) 99 % (92-99) Arterial Blood pH 7.42 (7.35-7.45) 7.62 (7.35-7.45) Arterial Blood pCO2 at Patient Temp 37 mmHg (35-46) 26 mmHg (35-46) Arterial Blood pO2 at Patient Temp 149 mmHg (65-108) 154 mmHg (65-108) Arterial Blood HCO3 24 mmol/L (21-28) 26 mmol/L (21-28) Arterial Blood Base Excess -1 mmol/L (-3-3) 5 mmol/L (-3-3) FiO2 80% 50 Lactic Acid Level 1.0 mmol/L (0.4-2.0) Troponin I Quantitative 0.718 ng/mL (0.000-0.055) Sodium Level 139 mmol/L (136-145) Potassium Level 3.7 mmol/L (3.5-5.1) Chloride Level 102 mmol/L (98-107) Carbon Dioxide Level 27 mmol/L (21-32) Anion Gap 10 (6-14) Blood Urea Nitrogen 33 mg/dL (7-20) Creatinine 3.6 mg/dL (0.6-1.0) Estimated GFR (Cockcroft-Gault) 15.4 Glucose Level 108 mg/dL (70-99) Calcium Level 7.8 mg/dL (8.5-10.1) Laboratory Tests Test 03/17/20 13:20 03/17/20 14:02 03/17/20 17:25 03/18/20 08:25 Lactic Acid Level 2.1 mmol/L (0.4-2.0) 1.0 mmol/L (0.4-2.0) Troponin I Quantitative 0.640 ng/mL (0.000-0.055) 0.718 ng/mL (0.000-0.055) O2 Saturation 99 % (92-99) 99 % (92-99) Arterial Blood pH 7.42 (7.35-7.45) 7.62 (7.35-7.45) Arterial Blood pCO2 at Patient Temp 37 mmHg (35-46) 26 mmHg (35-46) Arterial Blood pO2 at Patient Temp 149 mmHg (65-108) 154 mmHg (65-108) Arterial Blood HCO3 24 mmol/L (21-28) 26 mmol/L (21-28) Arterial Blood Base Excess -1 mmol/L (-3-3) 5 mmol/L (-3-3) FiO2 80% 50 Test 03/18/20 09:00 Sodium Level 139 mmol/L (136-145) Potassium Level 3.7 mmol/L (3.5-5.1) Chloride Level 102 mmol/L (98-107) Carbon Dioxide Level 27 mmol/L (21-32) Anion Gap 10 (6-14) Blood Urea Nitrogen 33 mg/dL (7-20) Creatinine 3.6 mg/dL (0.6-1.0) Estimated GFR (Cockcroft-Gault) 15.4 Glucose Level 108 mg/dL (70-99) Calcium Level 7.8 mg/dL (8.5-10.1) Medications Active Scripts Medications Dose Route/Sig Max Daily Dose Days Date Category [place] 5-325 Tablet (Acetaminophen/Hydrocodone Bitart) 1 Each Tablet 1-2 Tab PO Q4-6HRS 12/03/17 Rx Indomethacin 50 Mg Capsule 1 Cap PO TID 12/03/17 Rx Meclizine Hcl 12.5 Mg Tablet 25 Mg PO TID 7 09/08/17 Rx Calcium Gummies (Calcium Phosphate Trib/Vit D3) 1 Each Tab.chew 1 Each PO DAILY 09/06/17 Reported Omeprazole 20 Mg Tablet.dr 20 Mg PO DAILY PRN 04/01/17 Reported Impression . IMPRESSION: 1. Acute hypoxemic respiratory failure. 2. Metabolic acidosis secondary to increased work of breathing. 3. Acute pulmonary edema. 4. End-stage renal disease. 5. Acute metabolic encephalopathy. 6. Elevated troponin, suspect demand ischemia. 7. Obesity. 8. History of Merna's. Plan . Repeat portable chest x-ray in the a.m. Decrease, minute ventilation Hemodialysis per nephrology Continue Zosyn for now DVT GI prophylaxis Possible trial in the morning and extubate Total cumulative critical care time of 30 minutes reviewing data, chest x-ray, and lab, and formulating a plan ARMINDA MALCOLM MD Mar 18, 2020 11:56
--- NOTE | 2020-03-18 12:28 | PDOC ---
PROGRESS NOTES Subjective Subjective Remains intubated and needing pressor support Objective Objective Vital Signs Date Time Temp Pulse Resp B/P (MAP) Pulse Ox O2 Delivery O2 Flow Rate FiO2 03/18/20 12:00 Mechanical Ventilator 03/18/20 11:00 104 18 116/69 (85) 100 03/18/20 08:00 100.2 100.2 Intake and Output 03/18/20 07:00 Intake Total 1825.4 ml Output Total 451 ml Balance 1374.4 ml Intake IV Total 1825.4 ml Output Urine Total 451 ml Physical Exam Abdomen: Normal bowel sounds Heart: Regular rate, Normal S1, Normal S2 Extremities: No clubbing General: Other (Intubated and sedated) Lungs: Other (Decreased air entry bases) Skin: No rashes, No breakdown Assessment Assessment 1. Acute hypoxic respiratory failure most probably secondary to acute on chronic diastolic heart failure and possible pneumonia. Continue intravenous antibiotics. Vent management per pulmonary team. COVID test pending. 2. Acute on chronic diastolic heart failure: Fluid removal with hemodialysis per nephrology team. Telemetry did not show any significant arrhythmias. We will check 2D echo if COVID test comes back negative. 3. Slightly elevated troponin level, most probably demand ischemia. Ischemic work-up could be considered as an outpatient. 4. End-stage renal disease on hemodialysis Plan Plan of Care Problems Medical Problems: (1) Acute respiratory failure Status: Acute Comment Review of Relevant I have reviewed the following items timur (where applicable) has been applied. Labs Laboratory Tests Test 03/17/20 13:20 03/17/20 14:02 03/17/20 17:25 03/18/20 08:25 Lactic Acid Level 2.1 mmol/L (0.4-2.0) 1.0 mmol/L (0.4-2.0) Troponin I Quantitative 0.640 ng/mL (0.000-0.055) 0.718 ng/mL (0.000-0.055) O2 Saturation 99 % (92-99) 99 % (92-99) Arterial Blood pH 7.42 (7.35-7.45) 7.62 (7.35-7.45) Arterial Blood pCO2 at Patient Temp 37 mmHg (35-46) 26 mmHg (35-46) Arterial Blood pO2 at Patient Temp 149 mmHg (65-108) 154 mmHg (65-108) Arterial Blood HCO3 24 mmol/L (21-28) 26 mmol/L (21-28) Arterial Blood Base Excess -1 mmol/L (-3-3) 5 mmol/L (-3-3) FiO2 80% 50 Test 03/18/20 09:00 Sodium Level 139 mmol/L (136-145) Potassium Level 3.7 mmol/L (3.5-5.1) Chloride Level 102 mmol/L (98-107) Carbon Dioxide Level 27 mmol/L (21-32) Anion Gap 10 (6-14) Blood Urea Nitrogen 33 mg/dL (7-20) Creatinine 3.6 mg/dL (0.6-1.0) Estimated GFR (Cockcroft-Gault) 15.4 Glucose Level 108 mg/dL (70-99) Calcium Level 7.8 mg/dL (8.5-10.1) Microbiology 03/17/20 Blood Culture - Preliminary, Resulted NO GROWTH AFTER 1 DAY Medications Current Medications Albumin Human 200 ml @ 200 mls/hr 1X PRN PRN IV Hypotension; Start 03/17/20 at 13:00; Stop 03/17/20 at 18:59; Status DC Darbepoetin Juan Luis ([facility] for DIALYSIS PTS) 60 mcg WEEKLYHS SQ ; Start 03/18/20 at 21:00 Fentanyl Citrate 30 ml @ 2.5 mls/hr CONT PRN IV SEE PROTOCOL; Start 03/17/20 at 12:30 Heparin Sodium (Porcine) (Heparin Sodium) 5,000 unit Q8HRS SQ Last administered on 03/18/20at 05:49; Start 03/17/20 at 14:00 Info (PHARMACY MONITORING -- do not chart) 1 each PRN DAILY PRN MC SEE COMMENTS; Start 03/17/20 at 13:00; Status UNV Info (PHARMACY MONITORING -- do not chart) 1 each PRN DAILY PRN MC SEE COMMENTS; Start 03/17/20 at 13:00; Status UNV Midazolam HCl 100 ml @ 1 mls/hr CONT PRN IV SEE PROTOCOL; Start 03/17/20 at 12:30 Norepinephrine Bitartrate 8 mg/ Dextrose 258 ml @ 15.499 mls/ hr CONT PRN IV PER PROTOCOL Last administered on 03/17/20at 20:25; Start 03/17/20 at 20:15 Pantoprazole Sodium (PROTONIX VIAL for IV PUSH) 40 mg DAILYAC IVP Last administered on 03/18/20at 08:08; Start 03/18/20 at 07:30 Pharmacy Consult (C.diff Med Screen By Rx) 1 each 1X ONCE MC ; Start 03/17/20 at 14:45; Stop 03/17/20 at 14:46; Status UNV Piperacillin Sod/ Tazobactam Sod 2.25 gm/Sodium Chloride 50 ml @ 100 mls/hr Q8HRS IV Last administered on 03/18/20at 05:49; Start 03/17/20 at 14:00 Propofol 100 ml @ 3 mls/hr CONT PRN IV SEE PROTOCOL Last administered on 03/18/20at 12:22; Start 03/17/20 at 12:30 Sodium Chloride 1,000 ml @ 400 mls/hr Q2H30M PRN IV PATENCY; Start 03/17/20 at 13:00; Stop 03/18/20 at 00:59; Status DC Sodium Chloride 1,000 ml @ 1,000 mls/hr Q1H PRN IV hypotension; Start 03/17/20 at 13:00; Stop 03/17/20 at 18:59; Status DC Sodium Chloride (Normal Saline Flush) 10 ml 1X PRN PRN IV AP catheter pack; Start 03/17/20 at 13:00; Stop 03/17/20 at 19:00; Status DC Sodium Chloride (Normal Saline Flush) 10 ml 1X PRN PRN IV [employer] catheter pack; Start 03/17/20 at 13:00; Stop 03/17/20 at 19:00; Status DC Vitals/I & O Vital Sign - Last 24 Hours 03/17/20 03/17/20 03/17/20 03/17/20 12:40 12:45 13:00 13:00 Temp 98.2 98.2 Pulse 98 98 116 Resp 21 B/P (MAP) 96/64 (75) Pulse Ox 100 100 100 O2 Delivery Ventilator Ventilator Ventilator Mechanical Ventilator 03/17/20 03/17/20 03/17/20 03/17/20 13:15 13:30 13:44 13:45 Pulse 90 90 98 98 Resp 21 B/P (MAP) 135/83 (100) 119/74 (89) Pulse Ox 100 100 100 100 O2 Delivery Ventilator Ventilator Ventilator Ventilator 03/17/20 03/17/20 03/17/20 03/17/20 14:00 14:15 14:30 15:00 Pulse 88 90 88 88 Resp 21 21 B/P (MAP) 103/66 (78) 94/71 (79) 105/64 (78) 107/61 (76) Pulse Ox 100 100 100 100 O2 Delivery Ventilator Ventilator Ventilator Ventilator 03/17/20 03/17/20 03/17/20 03/17/20 15:09 16:00 16:00 17:00 Temp 98.6 98.6 Pulse 95 105 Resp 21 B/P (MAP) 122/93 (103) 113/54 (73) Pulse Ox 100 100 100 O2 Delivery Ventilator Mechanical Ventilator Ventilator Ventilator 03/17/20 03/17/20 03/17/20 03/17/20 18:00 19:00 19:55 20:00 Pulse 110 103 Resp 22 B/P (MAP) 84/74 (77) 157/75 (102) Pulse Ox 100 100 100 O2 Delivery Ventilator Ventilator Ventilator Mechanical Ventilator 03/17/20 03/17/20 03/17/20 03/17/20 20:00 21:00 22:00 23:00 Temp 98.7 98.7 Pulse 104 97 110 110 Resp 22 25 21 B/P (MAP) 113/63 (80) 111/60 (77) 112/72 (85) 132/63 (86) Pulse Ox 100 100 100 100 O2 Delivery Ventilator Ventilator Ventilator Ventilator 03/17/20 03/17/20 03/18/20 03/18/20 23:59 23:59 00:32 01:00 Temp 98.1 98.1 Pulse 112 100 Resp 22 B/P (MAP) 104/59 (74) 100/65 (77) Pulse Ox 100 100 100 O2 Delivery Mechanical Ventilator Ventilator Ventilator Ventilator 03/18/20 03/18/20 03/18/20 03/18/20 02:00 03:00 04:00 04:00 Temp 98.4 98.4 Pulse 116 114 116 Resp 22 22 28 B/P (MAP) 128/77 (94) 104/68 (80) 120/67 (84) Pulse Ox 100 100 100 O2 Delivery Ventilator Ventilator Mechanical Ventilator Ventilator 03/18/20 03/18/20 03/18/20 03/18/20 04:52 05:00 06:00 07:00 Pulse 115 113 120 Resp 22 24 21 B/P (MAP) 109/74 (86) 108/64 (79) 107/64 (78) Pulse Ox 100 100 100 100 O2 Delivery Ventilator Ventilator Ventilator Ventilator 03/18/20 03/18/20 03/18/20 03/18/20 08:00 08:15 09:00 10:00 Temp 100.2 100.2 Pulse 121 105 103 Resp 21 18 18 B/P (MAP) 99/60 (73) 117/71 (86) 112/59 (76) Pulse Ox 100 100 100 O2 Delivery Ventilator Mechanical Ventilator Ventilator Ventilator 03/18/20 03/18/20 11:00 12:00 Pulse 104 Resp 18 B/P (MAP) 116/69 (85) Pulse Ox 100 O2 Delivery Ventilator Mechanical Ventilator Intake and Output 03/17/20 03/17/20 03/18/20 15:00 23:00 07:00 Intake Total 1050 ml 330.4 ml 445 ml Output Total 270 ml 50 ml 131 ml Balance 780 ml 280.4 ml 314 ml ASTON VARGAS MD Mar 18, 2020 12:28
--- NOTE | 2020-03-18 14:38 | NUR ---
SS following up with discharge planning. SS reviewed pt chart and discussed with pt RN. Pt is from home with spouse and is currently on the vent. Pt on IV Zosyn. COVID19 pending. SS will continue to follow for discharge planning.
[2020-03-18] MEDS ORDERED: MAGNESIUM SULFATE 2GM 50 ML IV ONE (15:30)
[2020-03-18] MEDS ORDERED: DARBEPOETIN ALFA 60 MCG/0.3 ML DISP.SYRIN. SQ SCH (21:00)
[2020-03-19] VITALS (24 sets, daily range): BP systolic 84–177; BP diastolic 47–86
[2020-03-19] MEDS: PROPOFOL 100 ML IV PRN ×2 (00:32→06:56)
[2020-03-19] MEDS: NOREPINEPHRINE VIAL 8 MG in IV DEXTROSE 5% 250 ML IV PRN (00:33)
[2020-03-19 06:01] LABS: CALCIUM 7.7 mg/dL (8.5-10.1); CREATININE 4.8 mg/dL (0.6-1.0); GFR 11.1; POTASSIUM 3.9 mmol/L (3.5-5.1)
[2020-03-19] MEDS: HEPARIN for SUB-Q USE 5,000 UNIT/ML VIAL. SQ SCH ×3 (06:45→21:32)
[2020-03-19] MEDS: PIPERACILLIN/TAZOBACTAM 2.25 GM in IV NORMAL SALINE 50ML 50 ML IV SCH ×3 (06:47→21:30)
--- NOTE | 2020-03-19 07:41 | PDOC ---
PULMONARY PROGRESS NOTES Subjective on vent, sedated on propofol, small ett secretion, on 50 % fi02, on levo Vitals Vital Signs Date Time Temp Pulse Resp B/P (MAP) Pulse Ox O2 Delivery O2 Flow Rate FiO2 03/19/20 06:00 94 13 133/73 (93) 99 Ventilator 03/19/20 05:00 99.2 99.2 Comments ros unable to obtain sedated on vent HEENT: Other (nc at perrl nose clear orally intubated neck no lad no thyromegaly) Lungs: Crackles Cardiovascular: S1, S2 Abdomen: Soft, Non-tender Neuro Exam: Alert Extremities: Other (Edema) Skin: Warm Labs Laboratory Tests Test 03/17/20 08:30 03/17/20 08:40 03/17/20 08:45 03/17/20 13:20 Urine Opiates Screen Neg (NEG) Urine Methadone Screen Neg (NEG) Urine Barbiturates Neg (NEG) Urine Phencyclidine Screen Neg (NEG) Urine Amphetamine/Methamphetamine Neg (NEG) Urine Benzodiazepines Screen Neg (NEG) Urine Cocaine Screen Neg (NEG) Urine Cannabinoids Screen Neg (NEG) Urine Ethyl Alcohol Neg (NEG) White Blood Count 12.1 x10^3/uL (4.0-11.0) Red Blood Count 2.57 x10^6/uL (3.50-5.40) Hemoglobin 8.0 g/dL (12.0-15.5) Hematocrit 25.2 % (36.0-47.0) Mean Corpuscular Volume 98 fL (79-100) Mean Corpuscular Hemoglobin 31 pg (25-35) Mean Corpuscular Hemoglobin Concent 32 g/dL (31-37) Red Cell Distribution Width 21.5 % (11.5-14.5) Platelet Count 178 x10^3/uL (140-400) Neutrophils (%) (Auto) 77 % (31-73) Lymphocytes (%) (Auto) 20 % (24-48) Monocytes (%) (Auto) 3 % (0-9) Eosinophils (%) (Auto) 0 % (0-3) Basophils (%) (Auto) 0 % (0-3) Neutrophils # (Auto) 9.3 x10^3/uL (1.8-7.7) Lymphocytes # (Auto) 2.4 x10^3/uL (1.0-4.8) Monocytes # (Auto) 0.4 x10^3/uL (0.0-1.1) Eosinophils # (Auto) 0.0 x10^3/uL (0.0-0.7) Basophils # (Auto) 0.0 x10^3/uL (0.0-0.2) Platelet Estimate Adequate (ADEQUATE) Polychromasia Occasional Poikilocytosis Slight Anisocytosis Mod Prothrombin Time 13.3 SEC (11.7-14.0) Prothromb Time International Ratio 1.1 (0.8-1.1) Sodium Level 142 mmol/L (136-145) Potassium Level 4.3 mmol/L (3.5-5.1) Chloride Level 106 mmol/L (98-107) Carbon Dioxide Level 24 mmol/L (21-32) Anion Gap 12 (6-14) Blood Urea Nitrogen 53 mg/dL (7-20) Creatinine 4.7 mg/dL (0.6-1.0) Estimated GFR (Cockcroft-Gault) 11.3 BUN/Creatinine Ratio 11 (6-20) Glucose Level 265 mg/dL (70-99) Calcium Level 8.1 mg/dL (8.5-10.1) Total Bilirubin 0.4 mg/dL (0.2-1.0) Aspartate Amino Transf (AST/SGOT) 73 U/L (15-37) Alanine Aminotransferase (ALT/SGPT) 71 U/L (14-59) Alkaline Phosphatase 139 U/L (46-116) Troponin I Quantitative 0.085 ng/mL (0.000-0.055) 0.640 ng/mL (0.000-0.055) [id number]-Type Natriuretic Peptide > 42525 pg/mL (0-124) Total Protein 5.0 g/dL (6.4-8.2) Albumin 2.5 g/dL (3.4-5.0) Albumin/Globulin Ratio 1.0 (1.0-1.7) Procalcitonin 0.65 ng/mL (0.00-0.10) Coronavirus (PCR) Not detected (Not Detected) O2 Saturation 97 % (92-99) Arterial Blood pH 7.25 (7.35-7.45) Arterial Blood pCO2 at Patient Temp 63 mmHg (35-46) Arterial Blood pO2 at Patient Temp 119 mmHg (65-108) Arterial Blood HCO3 27 mmol/L (21-28) Arterial Blood Base Excess -1 mmol/L (-3-3) FiO2 100% Lactic Acid Level 2.1 mmol/L (0.4-2.0) Test 03/17/20 14:02 03/17/20 17:25 03/18/20 08:25 03/18/20 09:00 O2 Saturation 99 % (92-99) 99 % (92-99) Arterial Blood pH 7.42 (7.35-7.45) 7.62 (7.35-7.45) Arterial Blood pCO2 at Patient Temp 37 mmHg (35-46) 26 mmHg (35-46) Arterial Blood pO2 at Patient Temp 149 mmHg (65-108) 154 mmHg (65-108) Arterial Blood HCO3 24 mmol/L (21-28) 26 mmol/L (21-28) Arterial Blood Base Excess -1 mmol/L (-3-3) 5 mmol/L (-3-3) FiO2 80% 50 Lactic Acid Level 1.0 mmol/L (0.4-2.0) Troponin I Quantitative 0.718 ng/mL (0.000-0.055) Sodium Level 139 mmol/L (136-145) Potassium Level 3.7 mmol/L (3.5-5.1) Chloride Level 102 mmol/L (98-107) Carbon Dioxide Level 27 mmol/L (21-32) Anion Gap 10 (6-14) Blood Urea Nitrogen 33 mg/dL (7-20) Creatinine 3.6 mg/dL (0.6-1.0) Estimated GFR (Cockcroft-Gault) 15.4 Glucose Level 108 mg/dL (70-99) Calcium Level 7.8 mg/dL (8.5-10.1) Magnesium Level 1.4 mg/dL (1.8-2.4) Test 03/19/20 01:08 03/19/20 05:30 Glucose (Fingerstick) 121 mg/dL (70-99) Sodium Level 139 mmol/L (136-145) Potassium Level 3.9 mmol/L (3.5-5.1) Chloride Level 103 mmol/L (98-107) Carbon Dioxide Level 28 mmol/L (21-32) Anion Gap 8 (6-14) Blood Urea Nitrogen 47 mg/dL (7-20) Creatinine 4.8 mg/dL (0.6-1.0) Estimated GFR (Cockcroft-Gault) 11.1 Glucose Level 133 mg/dL (70-99) Calcium Level 7.7 mg/dL (8.5-10.1) Laboratory Tests Test 03/18/20 08:25 03/18/20 09:00 03/19/20 01:08 03/19/20 05:30 O2 Saturation 99 % (92-99) Arterial Blood pH 7.62 (7.35-7.45) Arterial Blood pCO2 at Patient Temp 26 mmHg (35-46) Arterial Blood pO2 at Patient Temp 154 mmHg (65-108) Arterial Blood HCO3 26 mmol/L (21-28) Arterial Blood Base Excess 5 mmol/L (-3-3) FiO2 50 Sodium Level 139 mmol/L (136-145) 139 mmol/L (136-145) Potassium Level 3.7 mmol/L (3.5-5.1) 3.9 mmol/L (3.5-5.1) Chloride Level 102 mmol/L (98-107) 103 mmol/L (98-107) Carbon Dioxide Level 27 mmol/L (21-32) 28 mmol/L (21-32) Anion Gap 10 (6-14) 8 (6-14) Blood Urea Nitrogen 33 mg/dL (7-20) 47 mg/dL (7-20) Creatinine 3.6 mg/dL (0.6-1.0) 4.8 mg/dL (0.6-1.0) Estimated GFR (Cockcroft-Gault) 15.4 11.1 Glucose Level 108 mg/dL (70-99) 133 mg/dL (70-99) Calcium Level 7.8 mg/dL (8.5-10.1) 7.7 mg/dL (8.5-10.1) Magnesium Level 1.4 mg/dL (1.8-2.4) Glucose (Fingerstick) 121 mg/dL (70-99) Medications Active Scripts Medications Dose Route/Sig Max Daily Dose Days Date Category [place] 5-325 Tablet (Acetaminophen/Hydrocodone Bitart) 1 Each Tablet 1-2 Tab PO Q4-6HRS 12/03/17 Rx Indomethacin 50 Mg Capsule 1 Cap PO TID 12/03/17 Rx Meclizine Hcl 12.5 Mg Tablet 25 Mg PO TID 7 09/08/17 Rx Calcium Gummies (Calcium Phosphate Trib/Vit D3) 1 Each Tab.chew 1 Each PO DAILY 09/06/17 Reported Omeprazole 20 Mg Tablet.dr 20 Mg PO DAILY PRN 04/01/17 Reported Comments cxr reviewed rll infilt atelectasis effusion ett ok Impression . IMPRESSION: 1. Acute hypoxemic respiratory failure. 2. Metabolic acidosis secondary to increased work of breathing. resolved 3. Acute pulmonary edema. acute diastolic chf 4. End-stage renal disease. 5. Acute metabolic encephalopathy. off sedation a and o 6. Elevated troponin, suspect demand ischemia. 7. Obesity. 8. History of Merna's. Plan . cont vent support, setting reviewed, will decrease sedation, sbt when awake, sbt done abg good will do upper airway test if ok will extubate, ? daksha will start bipap during sleep, prn during day Hemodialysis per nephrology Continue Zosyn fu cxs DVT GI prophylaxis elevate hob covid19 neg, will repeat has abnl cxr discussed w rn, rt critically ill Total cumulative critical care time of 30 minutes reviewing data, chest x-ray, and lab, and formulating a plan, no overlap RAJWINDER CORONA MD Mar 19, 2020 07:41
--- NOTE | 2020-03-19 07:44 | RAD ---
EXAM: CHEST 1 VIEW History: Respiratory failure COMPARISON: 03/17/2020 TECHNIQUE: Single portable radiograph of the chest FINDINGS: The ET tube, feeding tube, left-sided dialysis catheter are unchanged. Moderate prominent appearing bilateral interstitial lung markings significantly improved since prior exam. Bibasilar lung airspace opacities likely atelectasis or infiltrates. IMPRESSION: Improved bilateral congestive changes. Electronically signed by: Nasim Gamble MD (03/19/2020 7:41 AM) [id number]
[2020-03-19] MEDS: PANTOPRAZOLE IV PUSH 40 MG VIAL. IVP SCH (08:27)
[2020-03-19 10:21] LABS: BASE EXCESS ABG 2 mmol/L (-3-3); HCO3 ABG 26 mmol/L (21-28); PCO2 ABG 40 mmHg (35-46); PO2 ABG 75 mmHg (65-108); SAT O2 ABG 93 % (92-99)
[2020-03-19 10:26] LABS: FIO2 ABG 40
[2020-03-19] MEDS ORDERED: IV NORMAL SALINE 1000ML BAG 1,000 ML IV PRN ×2 (11:59)
[2020-03-19] MEDS ORDERED: ALBUMIN HUMAN 25% 200 ML IV PRN (12:00)
[2020-03-19] MEDS ORDERED: DIALYSIS PATIENT. MC PRN ×2 (12:00)
--- NOTE | 2020-03-19 12:16 | PDOC ---
PROGRESS NOTES Chief Complaint Chief Complaint ASSESSMENT Acute Hypoxic Resp Failure secondary to Volume Overload Suspected COVID- Acute Encephalopathy ESRD on HD Elevated Trop likely demand ischemia Obesity Payal's Dz hx of Vertigo PLAN follow in Vent/Sedation per pulm given elevated procal and ? PNA continue zosyn check covid-19 Pulm Consulted Nephro consult for HD cards consulted given elevated trop DVT ppx: heparin sq FULL CODE History of Present Illness History of Present Illness will attempt to liberate from vent today. following commands off sedation. continue abx. HD per nephro. Vitals Vitals Vital Signs Date Time Temp Pulse Resp B/P (MAP) Pulse Ox O2 Delivery O2 Flow Rate FiO2 03/19/20 11:21 100 20 140/64 (89) 92 Nasal Cannula 3.0 03/19/20 08:48 99.2 99.2 Physical Exam General: Other (Intubated and sedated) Heart: Regular rate, Normal S1, Normal S2 Lungs: Crackles Abdomen: Normal bowel sounds Extremities: No clubbing Skin: No rashes, No breakdown Labs LABS Laboratory Tests Test 03/19/20 01:08 03/19/20 05:30 03/19/20 10:10 Glucose (Fingerstick) 121 mg/dL (70-99) Sodium Level 139 mmol/L (136-145) Potassium Level 3.9 mmol/L (3.5-5.1) Chloride Level 103 mmol/L (98-107) Carbon Dioxide Level 28 mmol/L (21-32) Anion Gap 8 (6-14) Blood Urea Nitrogen 47 mg/dL (7-20) Creatinine 4.8 mg/dL (0.6-1.0) Estimated GFR (Cockcroft-Gault) 11.1 Glucose Level 133 mg/dL (70-99) Calcium Level 7.7 mg/dL (8.5-10.1) O2 Saturation 93 % (92-99) Arterial Blood pH 7.44 (7.35-7.45) Arterial Blood pCO2 at Patient Temp 40 mmHg (35-46) Arterial Blood pO2 at Patient Temp 75 mmHg (65-108) Arterial Blood HCO3 26 mmol/L (21-28) Arterial Blood Base Excess 2 mmol/L (-3-3) FiO2 40 Assessment and Plan Assessmemt and Plan Problems Medical Problems: (1) Acute respiratory failure Status: Acute Comment Review of Relevant I have reviewed the following items timur (where applicable) has been applied. Labs Laboratory Tests Test 03/17/20 13:20 03/17/20 14:02 03/17/20 17:25 03/18/20 08:25 Lactic Acid Level 2.1 mmol/L (0.4-2.0) 1.0 mmol/L (0.4-2.0) Troponin I Quantitative 0.640 ng/mL (0.000-0.055) 0.718 ng/mL (0.000-0.055) O2 Saturation 99 % (92-99) 99 % (92-99) Arterial Blood pH 7.42 (7.35-7.45) 7.62 (7.35-7.45) Arterial Blood pCO2 at Patient Temp 37 mmHg (35-46) 26 mmHg (35-46) Arterial Blood pO2 at Patient Temp 149 mmHg (65-108) 154 mmHg (65-108) Arterial Blood HCO3 24 mmol/L (21-28) 26 mmol/L (21-28) Arterial Blood Base Excess -1 mmol/L (-3-3) 5 mmol/L (-3-3) FiO2 80% 50 Test 03/18/20 09:00 03/19/20 01:08 03/19/20 05:30 03/19/20 10:10 Sodium Level 139 mmol/L (136-145) 139 mmol/L (136-145) Potassium Level 3.7 mmol/L (3.5-5.1) 3.9 mmol/L (3.5-5.1) Chloride Level 102 mmol/L (98-107) 103 mmol/L (98-107) Carbon Dioxide Level 27 mmol/L (21-32) 28 mmol/L (21-32) Anion Gap 10 (6-14) 8 (6-14) Blood Urea Nitrogen 33 mg/dL (7-20) 47 mg/dL (7-20) Creatinine 3.6 mg/dL (0.6-1.0) 4.8 mg/dL (0.6-1.0) Estimated GFR (Cockcroft-Gault) 15.4 11.1 Glucose Level 108 mg/dL (70-99) 133 mg/dL (70-99) Calcium Level 7.8 mg/dL (8.5-10.1) 7.7 mg/dL (8.5-10.1) Magnesium Level 1.4 mg/dL (1.8-2.4) Glucose (Fingerstick) 121 mg/dL (70-99) O2 Saturation 93 % (92-99) Arterial Blood pH 7.44 (7.35-7.45) Arterial Blood pCO2 at Patient Temp 40 mmHg (35-46) Arterial Blood pO2 at Patient Temp 75 mmHg (65-108) Arterial Blood HCO3 26 mmol/L (21-28) Arterial Blood Base Excess 2 mmol/L (-3-3) FiO2 40 Laboratory Tests Test 03/19/20 01:08 03/19/20 05:30 03/19/20 10:10 Glucose (Fingerstick) 121 mg/dL (70-99) Sodium Level 139 mmol/L (136-145) Potassium Level 3.9 mmol/L (3.5-5.1) Chloride Level 103 mmol/L (98-107) Carbon Dioxide Level 28 mmol/L (21-32) Anion Gap 8 (6-14) Blood Urea Nitrogen 47 mg/dL (7-20) Creatinine 4.8 mg/dL (0.6-1.0) Estimated GFR (Cockcroft-Gault) 11.1 Glucose Level 133 mg/dL (70-99) Calcium Level 7.7 mg/dL (8.5-10.1) O2 Saturation 93 % (92-99) Arterial Blood pH 7.44 (7.35-7.45) Arterial Blood pCO2 at Patient Temp 40 mmHg (35-46) Arterial Blood pO2 at Patient Temp 75 mmHg (65-108) Arterial Blood HCO3 26 mmol/L (21-28) Arterial Blood Base Excess 2 mmol/L (-3-3) FiO2 40 Microbiology 03/17/20 Blood Culture - Preliminary, Resulted NO GROWTH AFTER 2 DAYS Medications Current Medications Etomidate (Amidate) 20 mg STK-MED ONCE IV ; Start 03/17/20 at 08:10; Stop 03/17/20 at 08:10; Status DC Rocuronium [place] (Zemuron) 50 mg STK-MED ONCE .ROUTE ; Start 03/17/20 at 08:10; Stop 03/17/20 at 08:11; Status DC Propofol 50 ml @ As Directed STK-MED ONCE IV ; Start 03/17/20 at 08:16; Stop 03/17/20 at 08:17; Status DC Aspirin (Aspirin Rectal Supp) 300 mg 1X STAT NM Last administered on 03/17/20at 09:17; Start 03/17/20 at 08:42; Stop 03/17/20 at 08:58; Status DC Piperacillin Sod/ Tazobactam Sod 2.25 gm/Sodium Chloride 50 ml @ 100 mls/hr 1X ONCE IV Last administered on 03/17/20at 09:16; Start 03/17/20 at 09:00; Stop 03/17/20 at 09:29; Status DC Fentanyl Citrate (Fentanyl 2ml Vial) 100 mcg 1X ONCE IV Last administered on 03/17/20at 09:15; Start 03/17/20 at 09:00; Stop 03/17/20 at 09:01; Status DC Etomidate (Amidate) 20 mg 1X ONCE IV Last administered on 03/17/20at 09:20; Start 03/17/20 at 09:30; Stop 03/17/20 at 09:31; Status DC Rocuronium [place] (Zemuron) 100 mg 1X ONCE IV Last administered on 03/17/20at 09:20; Start 03/17/20 at 09:30; Stop 03/17/20 at 09:31; Status DC Sodium Chloride 1,000 ml @ 1,000 mls/hr 1X ONCE IV Last administered on 03/17/20at 09:21; Start 03/17/20 at 09:30; Stop 03/17/20 at 10:29; Status DC Propofol (Diprivan) 500 mg 1X ONCE IV Last administered on 03/17/20at 08:15; Start 03/17/20 at 09:30; Stop 03/17/20 at 09:39; Status DC Norepinephrine Bitartrate 8 mg/ Dextrose 258 ml @ 19.35 mls/ hr 1X ONCE IV Last administered on 03/17/20at 11:41; Start 03/17/20 at 11:30; Stop 03/18/20 at 00:49; Status DC Fentanyl Citrate (Fentanyl 2ml Vial) 100 mcg 1X ONCE IVP Last administered on 03/17/20at 11:42; Start 03/17/20 at 11:30; Stop 03/17/20 at 11:31; Status DC Propofol 50 ml @ As Directed STK-MED ONCE IV ; Start 03/17/20 at 11:45; Stop 03/17/20 at 11:45; Status DC Propofol 50 ml @ 1.5 mls/hr 1X ONCE IV Last administered on 03/17/20at 11:51; Start 03/17/20 at 12:00; Stop 03/18/20 at 21:19; Status DC Sodium Chloride 250 ml @ 250 mls/hr 1X ONCE IV ; Start 03/17/20 at 12:00; Stop 03/17/20 at 12:59; Status DC Piperacillin Sod/ Tazobactam Sod (Zosyn Per Pharmacy) 1 each PRN DAILY PRN MC SEE COMMENTS; Start 03/17/20 at 12:15 Info (PHARMACY MONITORING -- do not chart) 1 each PRN DAILY PRN MC SEE COMMENTS; Start 03/17/20 at 12:15 Piperacillin Sod/ Tazobactam Sod 2.25 gm/Sodium Chloride 50 ml @ 100 mls/hr Q8HRS IV Last administered on 03/19/20at 06:47; Start 03/17/20 at 14:00 Pantoprazole Sodium (PROTONIX VIAL for IV PUSH) 40 mg DAILYAC IVP Last administered on 03/19/20at 08:27; Start 03/18/20 at 07:30 Heparin Sodium (Porcine) (Heparin Sodium) 5,000 unit Q8HRS SQ Last administered on 03/19/20at 06:45; Start 03/17/20 at 14:00 Fentanyl Citrate 30 ml @ 2.5 mls/hr CONT PRN IV SEE PROTOCOL; Start 03/17/20 at 12:30 Propofol 100 ml @ 3 mls/hr CONT PRN IV SEE PROTOCOL Last administered on 03/02 04/21at 06:56; Start 03/17/20 at 12:30 Midazolam HCl 100 ml @ 1 mls/hr CONT PRN IV SEE PROTOCOL; Start 03/17/20 at 12:30 Sodium Chloride 1,000 ml @ 1,000 mls/hr Q1H PRN IV hypotension; Start 03/17/20 at 13:00; Stop 03/17/20 at 18:59; Status DC Albumin Human 200 ml @ 200 mls/hr 1X PRN PRN IV Hypotension; Start 03/17/20 at 13:00; Stop 03/17/20 at 18:59; Status DC Sodium Chloride (Normal Saline Flush) 10 ml 1X PRN PRN IV AP catheter pack; Start 03/17/20 at 13:00; Stop 03/17/20 at 19:00; Status DC Sodium Chloride (Normal Saline Flush) 10 ml 1X PRN PRN IV TELEPHOTO ENGINEER catheter pack; Start 03/17/20 at 13:00; Stop 03/17/20 at 19:00; Status DC Sodium Chloride 1,000 ml @ 400 mls/hr Q2H30M PRN IV PATENCY; Start 03/17/20 at 13:00; Stop 03/18/20 at 00:59; Status DC Info (PHARMACY MONITORING -- do not chart) 1 each PRN DAILY PRN MC SEE COMMENTS; Start 03/17/20 at 13:00; Status UNV Info (PHARMACY MONITORING -- do not chart) 1 each PRN DAILY PRN MC SEE COMMENTS; Start 03/17/20 at 13:00; Status UNV Pharmacy Consult (C.diff Med Screen By Rx) 1 each 1X ONCE MC ; Start 03/17/20 at 14:45; Stop 03/17/20 at 14:46; Status UNV Norepinephrine Bitartrate 8 mg/ Dextrose 258 ml @ 15.499 mls/ hr CONT PRN IV PER PROTOCOL Last administered on 03/19/20at 00:33; Start 03/17/20 at 20:15 Darbepoetin [place] (ARANESP for DIALYSIS PTS) 60 mcg WEEKLYHS SQ Last administered on 03/18/20at 21:45; Start 03/18/20 at 21:00 Magnesium Sulfate 50 ml @ 25 mls/hr 1X ONCE IV Last administered on 03/18/20at 15:32; Start 03/18/20 at 15:30; Stop 03/18/20 at 17:29; Status DC Sodium Chloride 1,000 ml @ 1,000 mls/hr Q1H PRN IV hypotension; Start 03/19/20 at 11:59; Stop 03/19/20 at 17:58 Albumin Human 200 ml @ 200 mls/hr 1X PRN PRN IV Hypotension; Start 03/19/20 at 12:00; Stop 03/19/20 at 17:59 Sodium Chloride 1,000 ml @ 400 mls/hr Q2H30M PRN IV PATENCY; Start 03/19/20 at 11:59; Stop 03/19/20 at 23:58 Info (PHARMACY MONITORING -- do not chart) 1 each PRN DAILY PRN MC SEE COMMENTS; Start 03/19/20 at 12:00; Status UNV Info (PHARMACY MONITORING -- do not chart) 1 each PRN DAILY PRN MC SEE COMMENTS; Start 03/19/20 at 12:00 Active Scripts Active [place] 5-325 Tablet (Acetaminophen/Hydrocodone Bitart) 1 Each Tablet 1-2 Tab PO Q4-6HRS Indomethacin 50 Mg Capsule 1 Cap PO TID Meclizine Hcl 12.5 Mg Tablet 25 Mg PO TID 7 Days Reported Protonix (Pantoprazole Sodium) 40 Mg Tablet.dr 40 Mg PO DAILYAC Atorvastatin Calcium 10 Mg Tablet 1 Tab PO DAILY Ambien (Zolpidem Tartrate) 5 Mg Tablet 5 Mg PO PRN QHS PRN Calcium Acetate 667 Mg Tablet 1 Tab PO TID 30 Days Calcium Gummies (Calcium Phosphate Trib/Vit D3) 1 Each Tab.chew 1 Each PO DAILY Omeprazole 20 Mg Tablet.dr 20 Mg PO DAILY PRN Vitals/I & O Vital Sign - Last 24 Hours 03/18/20 03/18/20 03/18/20 03/18/20 13:00 14:00 15:00 15:50 Pulse 102 112 109 Resp 18 13 12 B/P (MAP) 152/72 (98) 140/73 (95) 151/81 (104) Pulse Ox 100 100 100 100 O2 Delivery Ventilator Ventilator Ventilator Ventilator 03/18/20 03/18/20 03/18/20 03/18/20 16:00 16:00 16:00 17:00 Temp 100.1 100.1 Pulse 102 104 Resp 12 12 B/P (MAP) 105/62 (76) 103/60 (74) Pulse Ox 100 100 100 O2 Delivery Ventilator Mechanical Ventilator Ventilator Ventilator 03/18/20 03/18/20 03/18/20 03/18/20 18:00 19:00 19:36 20:00 Temp 100.2 100.2 Pulse 103 104 Resp 15 12 B/P (MAP) 112/60 (77) 85/64 (71) Pulse Ox 100 99 O2 Delivery Ventilator Ventilator Mechanical Ventilator 03/18/20 03/18/20 03/18/20 03/18/20 20:00 20:45 21:00 22:00 Pulse 102 98 98 Resp 13 12 13 B/P (MAP) 121/61 (81) 102/58 (73) 101/56 (71) Pulse Ox 100 100 99 99 O2 Delivery Ventilator Ventilator Ventilator Ventilator 03/18/20 03/18/20 03/19/20 03/19/20 23:00 23:45 00:00 00:00 Pulse 96 96 92 Resp 12 12 12 B/P (MAP) 114/66 (82) 86/58 (67) 99/59 (72) Pulse Ox 100 100 99 O2 Delivery Ventilator Ventilator Ventilator Mechanical Ventilator 03/19/20 03/19/20 03/19/20 03/19/20 00:25 01:00 02:00 03:00 Temp 99.9 99.9 Pulse 90 96 90 Resp 12 14 12 B/P (MAP) 115/62 (79) 97/61 (73) 119/63 (81) Pulse Ox 100 100 100 100 O2 Delivery Ventilator Ventilator Ventilator Ventilator 03/19/20 03/19/20 03/19/20 03/19/20 04:00 04:00 05:00 06:00 Temp 99.2 99.2 Pulse 88 88 94 Resp 12 11 13 B/P (MAP) 110/63 (79) 129/67 (87) 133/73 (93) Pulse Ox 100 100 99 O2 Delivery Mechanical Ventilator Ventilator Ventilator Ventilator 03/19/20 03/19/20 03/19/20 03/19/20 07:40 08:00 08:16 08:48 Temp 99.2 99.2 Pulse 99 91 Resp 12 12 B/P (MAP) 113/57 (75) 133/76 (95) Pulse Ox 99 99 100 O2 Delivery Ventilator Mechanical Ventilator Ventilator Ventilator 03/19/20 03/19/20 03/19/20 09:00 10:18 11:21 Pulse 99 99 100 Resp 20 20 B/P (MAP) 165/76 (105) 164/76 (105) 140/64 (89) Pulse Ox 99 99 92 O2 Delivery Ventilator Ventilator Nasal Cannula O2 Flow Rate 3.0 Intake and Output 03/18/20 03/18/20 03/19/20 15:00 23:00 07:00 Intake Total 200 ml 1210 ml 921 ml Output Total 280 ml 220 ml 245 ml Balance -80 ml 990 ml 676 ml Justicifation of Admission Dx: Justifications for Admission: Justification of Admission Dx: Yes Respiratory Failure: Mechanical Ventilation RIGOBERTO ABBOTT MD Mar 19, 2020 12:16
--- NOTE | 2020-03-19 13:27 | PDOC ---
PROGRESS NOTES Subjective Subjective IN FOLLOW UP OF ESRD Objective Objective Vital Signs Date Time Temp Pulse Resp B/P (MAP) Pulse Ox O2 Delivery O2 Flow Rate FiO2 03/19/20 13:08 104 20 144/70 (94) 100 Nasal Cannula 2.0 03/19/20 12:29 98.9 98.9 Intake and Output 03/19/20 07:00 Intake Total 2331 ml Output Total 745 ml Balance 1586 ml IV Total 339 ml Tube Feeding 1464 ml Other 528 ml Output Urine Total 745 ml Physical Exam Physical Exam NO EXAM DUE TO PUI FOR COVID 19 Diagnosis RENAL FAILURE: ESRD Assessment Assessment Problems Medical Problems: (1) Acute respiratory failure Status: Acute Plan Plan of Care FOR DIALYSIS TODAY. EPOGEN PER HGB. REMAINS PUI FOR COVID 19. DID NOT ENTER THE ROMM Comment Review of Relevant I have reviewed the following items timur (where applicable) has been applied. Labs Laboratory Tests Test 03/17/20 14:02 03/17/20 17:25 03/18/20 08:25 03/18/20 09:00 O2 Saturation 99 % (92-99) 99 % (92-99) Arterial Blood pH 7.42 (7.35-7.45) 7.62 (7.35-7.45) Arterial Blood pCO2 at Patient Temp 37 mmHg (35-46) 26 mmHg (35-46) Arterial Blood pO2 at Patient Temp 149 mmHg (65-108) 154 mmHg (65-108) Arterial Blood HCO3 24 mmol/L (21-28) 26 mmol/L (21-28) Arterial Blood Base Excess -1 mmol/L (-3-3) 5 mmol/L (-3-3) FiO2 80% 50 Lactic Acid Level 1.0 mmol/L (0.4-2.0) Troponin I Quantitative 0.718 ng/mL (0.000-0.055) Sodium Level 139 mmol/L (136-145) Potassium Level 3.7 mmol/L (3.5-5.1) Chloride Level 102 mmol/L (98-107) Carbon Dioxide Level 27 mmol/L (21-32) Anion Gap 10 (6-14) Blood Urea Nitrogen 33 mg/dL (7-20) Creatinine 3.6 mg/dL (0.6-1.0) Estimated GFR (Cockcroft-Gault) 15.4 Glucose Level 108 mg/dL (70-99) Calcium Level 7.8 mg/dL (8.5-10.1) Magnesium Level 1.4 mg/dL (1.8-2.4) Test 03/19/20 01:08 03/19/20 05:30 03/19/20 10:10 Glucose (Fingerstick) 121 mg/dL (70-99) Sodium Level 139 mmol/L (136-145) Potassium Level 3.9 mmol/L (3.5-5.1) Chloride Level 103 mmol/L (98-107) Carbon Dioxide Level 28 mmol/L (21-32) Anion Gap 8 (6-14) Blood Urea Nitrogen 47 mg/dL (7-20) Creatinine 4.8 mg/dL (0.6-1.0) Estimated GFR (Cockcroft-Gault) 11.1 Glucose Level 133 mg/dL (70-99) Calcium Level 7.7 mg/dL (8.5-10.1) O2 Saturation 93 % (92-99) Arterial Blood pH 7.44 (7.35-7.45) Arterial Blood pCO2 at Patient Temp 40 mmHg (35-46) Arterial Blood pO2 at Patient Temp 75 mmHg (65-108) Arterial Blood HCO3 26 mmol/L (21-28) Arterial Blood Base Excess 2 mmol/L (-3-3) FiO2 40 Laboratory Tests Test 03/19/20 01:08 03/19/20 05:30 03/19/20 10:10 Glucose (Fingerstick) 121 mg/dL (70-99) Sodium Level 139 mmol/L (136-145) Potassium Level 3.9 mmol/L (3.5-5.1) Chloride Level 103 mmol/L (98-107) Carbon Dioxide Level 28 mmol/L (21-32) Anion Gap 8 (6-14) Blood Urea Nitrogen 47 mg/dL (7-20) Creatinine 4.8 mg/dL (0.6-1.0) Estimated GFR (Cockcroft-Gault) 11.1 Glucose Level 133 mg/dL (70-99) Calcium Level 7.7 mg/dL (8.5-10.1) O2 Saturation 93 % (92-99) Arterial Blood pH 7.44 (7.35-7.45) Arterial Blood pCO2 at Patient Temp 40 mmHg (35-46) Arterial Blood pO2 at Patient Temp 75 mmHg (65-108) Arterial Blood HCO3 26 mmol/L (21-28) Arterial Blood Base Excess 2 mmol/L (-3-3) FiO2 40 Microbiology 03/17/20 Blood Culture - Preliminary, Resulted NO GROWTH AFTER 2 DAYS Medications Current Medications Etomidate (Amidate) 20 mg STK-MED ONCE IV ; Start 03/17/20 at 08:10; Stop 03/17/20 at 08:10; Status DC Rocuronium [place] (Zemuron) 50 mg STK-MED ONCE .ROUTE ; Start 03/17/20 at 08:10; Stop 03/17/20 at 08:11; Status DC Propofol 50 ml @ As Directed STK-MED ONCE IV ; Start 03/17/20 at 08:16; Stop 03/17/20 at 08:17; Status DC Aspirin (Aspirin Rectal Supp) 300 mg 1X STAT MD Last administered on 03/17/20at 09:17; Start 03/17/20 at 08:42; Stop 03/17/20 at 08:58; Status DC Piperacillin Sod/ Tazobactam Sod 2.25 gm/Sodium Chloride 50 ml @ 100 mls/hr 1X ONCE IV Last administered on 03/17/20at 09:16; Start 03/17/20 at 09:00; Stop 03/17/20 at 09:29; Status DC Fentanyl Citrate (Fentanyl 2ml Vial) 100 mcg 1X ONCE IV Last administered on 03/17/20at 09:15; Start 03/17/20 at 09:00; Stop 03/17/20 at 09:01; Status DC Etomidate (Amidate) 20 mg 1X ONCE IV Last administered on 03/17/20at 09:20; Start 03/17/20 at 09:30; Stop 03/17/20 at 09:31; Status DC Rocuronium [place] (Zemuron) 100 mg 1X ONCE IV Last administered on 03/17/20at 09:20; Start 03/17/20 at 09:30; Stop 03/17/20 at 09:31; Status DC Sodium Chloride 1,000 ml @ 1,000 mls/hr 1X ONCE IV Last administered on 03/17/20at 09:21; Start 03/17/20 at 09:30; Stop 03/17/20 at 10:29; Status DC Propofol (Diprivan) 500 mg 1X ONCE IV Last administered on 03/17/20at 08:15; Start 03/17/20 at 09:30; Stop 03/17/20 at 09:39; Status DC Norepinephrine Bitartrate 8 mg/ Dextrose 258 ml @ 19.35 mls/ hr 1X ONCE IV Last administered on 03/17/20at 11:41; Start 03/17/20 at 11:30; Stop 03/18/20 at 00:49; Status DC Fentanyl Citrate (Fentanyl 2ml Vial) 100 mcg 1X ONCE IVP Last administered on 03/17/20at 11:42; Start 03/17/20 at 11:30; Stop 03/17/20 at 11:31; Status DC Propofol 50 ml @ As Directed STK-MED ONCE IV ; Start 03/17/20 at 11:45; Stop 03/17/20 at 11:45; Status DC Propofol 50 ml @ 1.5 mls/hr 1X ONCE IV Last administered on 03/17/20at 11:51; Start 03/17/20 at 12:00; Stop 03/18/20 at 21:19; Status DC Sodium Chloride 250 ml @ 250 mls/hr 1X ONCE IV ; Start 03/17/20 at 12:00; Stop 03/17/20 at 12:59; Status DC Piperacillin Sod/ Tazobactam Sod (Zosyn Per Pharmacy) 1 each PRN DAILY PRN MC SEE COMMENTS; Start 03/17/20 at 12:15 Info (PHARMACY MONITORING -- do not chart) 1 each PRN DAILY PRN MC SEE Cecy HUBER; Start 03/17/20 at 12:15 Piperacillin Sod/ Tazobactam Sod 2.25 gm/Sodium Chloride 50 ml @ 100 mls/hr Q8HRS IV Last administered on 03/19/20at 06:47; Start 03/17/20 at 14:00 Pantoprazole Sodium (PROTONIX VIAL for IV PUSH) 40 mg DAILYAC IVP Last ad ministered on 03/19/20at 08:27; Start 03/18/20 at 07:30 Heparin Sodium (Porcine) (Heparin Sodium) 5,000 unit Q8HRS SQ Last administered on 03/19/20at 06:45; Start 03/17/20 at 14:00 Fentanyl Citrate 30 ml @ 2.5 mls/hr CONT PRN IV SEE PROTOCOL; Start 03/17/20 at 12:30 Propofol 100 ml @ 3 mls/hr CONT PRN IV SEE PROTOCOL Last administered on 03/19/20at 06:56; Start 03/17/20 at 12:30 Midazolam HCl 100 ml @ 1 mls/hr CONT PRN IV SEE PROTOCOL; Start 03/17/20 at 12:30 Sodium Chloride 1,000 ml @ 1,000 mls/hr Q1H PRN IV hypotension; Start 03/17/20 at 13:00; Stop 03/17/20 at 18:59; Status DC Albumin Human 200 ml @ 200 mls/hr 1X PRN PRN IV Hypotension; Start 03/17/20 at 13:00; Stop 03/17/20 at 18:59; Status DC Sodium Chloride (Normal Saline Flush) 10 ml 1X PRN PRN IV AP catheter pack; Start 03/17/20 at 13:00; Stop 03/17/20 at 19:00; Status DC Sodium Chloride (Normal Saline Flush) 10 ml 1X PRN PRN IV STEEPING PRESS OPERATOR catheter pack; Start 03/17/20 at 13:00; Stop 03/17/20 at 19:00; Status DC Sodium Chloride 1,000 ml @ 400 mls/hr Q2H30M PRN IV PATENCY; Start 03/17/20 at 13:00; Stop 03/18/20 at 00:59; Status DC Info (PHARMACY MONITORING -- do not chart) 1 each PRN DAILY PRN MC SEE COMMENTS; Start 03/17/20 at 13:00; Status UNV Info (PHARMACY MONITORING -- do not chart) 1 each PRN DAILY PRN MC SEE COMMENTS; Start 03/17/20 at 13:00; Status UNV Pharmacy Consult (C.diff Med Screen By Rx) 1 each 1X ONCE MC ; Start 03/17/20 at 14:45; Stop 03/17/20 at 14:46; Status UNV Norepinephrine Bitartrate 8 mg/ Dextrose 258 ml @ 15.499 mls/ hr CONT PRN IV PER PROTOCOL Last administered on 03/19/20at 00:33; Start 03/17/20 at 20:15 Darbepoetin [place] (ARANESP for DIALYSIS PTS) 60 mcg WEEKLYHS SQ Last administered on 03/18/20at 21:45; Start 03/18/20 at 21:00 Magnesium Sulfate 50 ml @ 25 mls/hr 1X ONCE IV Last administered on 03/18/20at 15:32; Start 03/18/20 at 15:30; Stop 03/18/20 at 17:29; Status DC Sodium Chloride 1,000 ml @ 1,000 mls/hr Q1H PRN IV hypotension; Start 03/19/20 at 11:59; Stop 03/19/20 at 17:58 Albumin Human 200 ml @ 200 mls/hr 1X PRN PRN IV Hypotension; Start 03/19/20 at 12:00; Stop 03/19/20 at 17:59 Sodium Chloride 1,000 ml @ 400 mls/hr Q2H30M PRN IV PATENCY; Start 03/19/20 at 11:59; Stop 03/19/20 at 23:58 Info (PHARMACY MONITORING -- do not chart) 1 each PRN DAILY PRN MC SEE COMMENTS; Start 03/19/20 at 12:00; Status UNV Info (PHARMACY MONITORING -- do not chart) 1 each PRN DAILY PRN MC SEE COMMENT S; Start 03/19/20 at 12:00 Active Scripts Active [place] 5-325 Tablet (Acetaminophen/Hydrocodone Bitart) 1 Each Tablet 1-2 Tab PO Q4-6HRS Indomethacin 50 Mg Capsule 1 Cap PO TID Meclizine Hcl 12.5 Mg Tablet 25 Mg PO TID 7 Days Reported Protonix (Pantoprazole Sodium) 40 Mg Tablet. 40 Mg PO DAILYAC Atorvastatin Calcium 10 Mg Tablet 1 Tab PO DAILY Ambien (Zolpidem Tartrate) 5 Mg Tablet 5 Mg PO PRN QHS PRN Calcium Acetate 667 Mg Tablet 1 Tab PO TID 30 Days Calcium Gummies (Calcium Phosphate Trib/Vit D3) 1 Each Tab.chew 1 Each PO DAILY Omeprazole 20 Mg Tablet. 20 Mg PO DAILY PRN Vitals/I & O Vital Sign - Last 24 Hours 03/18/20 03/18/20 03/18/20 03/18/20 14:00 15:00 15:50 16:00 Temp 100.1 100.1 Pulse 112 109 102 Resp 13 12 12 B/P (MAP) 140/73 (95) 151/81 (104) 105/62 (76) Pulse Ox 100 100 100 100 O2 Delivery Ventilator Ventilator Ventilator Ventilator 03/18/20 03/18/20 03/18/20 03/18/20 16:00 16:00 17:00 18:00 Pulse 104 103 Resp 12 15 B/P (MAP) 103/60 (74) 112/60 (77) Pulse Ox 100 100 100 O2 Delivery Mechanical Ventilator Ventilator Ventilator Ventilator 03/18/20 03/18/20 03/18/20 03/18/20 19:00 19:36 20:00 20:00 Temp 100.2 100.2 Pulse 104 102 Resp 12 13 B/P (MAP) 85/64 (71) 121/61 (81) Pulse Ox 99 100 O2 Delivery Ventilator Mechanical Ventilator Ventilator 03/18/20 03/18/20 03/18/20 03/18/20 20:45 21:00 22:00 23:00 Pulse 98 98 96 Resp 12 13 12 B/P (MAP) 102/58 (73) 101/56 (71) 114/66 (82) Pulse Ox 100 99 99 100 O2 Delivery Ventilator Ventilator Ventilator Ventilator 03/18/20 03/19/20 03/19/20 03/19/20 23:45 00:00 00:00 00:25 Pulse 96 92 Resp 12 12 B/P (MAP) 86/58 (67) 99/59 (72) Pulse Ox 100 99 100 O2 Delivery Ventilator Ventilator Mechanical Ventilator Ventilator 03/19/20 03/19/20 03/19/20 03/19/20 01:00 02:00 03:00 04:00 Temp 99.9 99.9 Pulse 90 96 90 Resp 12 14 12 B/P (MAP) 115/62 (79) 97/61 (73) 119/63 (81) Pulse Ox 100 100 100 O2 Delivery Ventilator Ventilator Ventilator Mechanical Ventilator 03/19/20 03/19/20 03/19/20 03/19/20 04:00 05:00 06:00 07:40 Temp 99.2 99.2 Pulse 88 88 94 99 Resp 12 11 13 12 B/P (MAP) 110/63 (79) 129/67 (87) 133/73 (93) 113/57 (75) Pulse Ox 100 100 99 99 O2 Delivery Ventilator Ventilator Ventilator Ventilator 03/19/20 03/19/20 03/19/20 03/19/20 08:00 08:16 08:48 09:00 Temp 99.2 99.2 Pulse 91 99 Resp 12 20 B/P (MAP) 133/76 (95) 165/76 (105) Pulse Ox 99 100 99 O2 Delivery Mechanical Ventilator Ventilator Ventilator Ventilator 03/19/20 03/19/20 03/19/20 03/19/20 10:18 11:21 12:29 12:32 Temp 98.9 98.9 Pulse 99 100 101 Resp 20 20 16 B/P (MAP) 164/76 (105) 140/64 (89) 141/68 (92) Pulse Ox 99 92 96 O2 Delivery Ventilator Nasal Cannula Nasal Cannula Nasal Cannula O2 Flow Rate 3.0 3.0 2.0 03/19/20 13:08 Pulse 104 Resp 20 B/P (MAP) 144/70 (94) Pulse Ox 100 O2 Delivery Nasal Cannula O2 Flow Rate 2.0 Intake and Output 03/18/20 03/18/20 03/19/20 15:00 23:00 07:00 Intake Total 200 ml 1210 ml 921 ml Output Total 280 ml 220 ml 245 ml Balance -80 ml 990 ml 676 ml Justicifation of Admission Dx: Justifications for Admission: Justification of Admission Dx: Yes Respiratory Failure: Mechanical Ventilation JESSI CABALLERO MD Mar 19, 2020 13:27
--- NOTE | 2020-03-19 18:23 | NUR ---
Patient extubated today. Patient obtained dialysis, passed bedside swallow, is not requiring medication for hypotension, COVID retest has been walked down to lab today by this RN. BIPAP started HS and PRN during the day via Dr. Bundy. VSS and in good spirits.
[2020-03-20] VITALS (12 sets, daily range): BP systolic 91–117; BP diastolic 52–84
[2020-03-20] MEDS: HEPARIN for SUB-Q USE 5,000 UNIT/ML VIAL. SQ SCH ×3 (06:27→22:31)
[2020-03-20] MEDS: PIPERACILLIN/TAZOBACTAM 2.25 GM in IV NORMAL SALINE 50ML 50 ML IV SCH ×3 (06:27→22:14)
--- NOTE | 2020-03-20 07:18 | PDOC ---
PULMONARY PROGRESS NOTES Subjective extubated 03/19, on 02 sob cough better, on home 02 refused bipap Vitals Vital Signs Date Time Temp Pulse Resp B/P (MAP) Pulse Ox O2 Delivery O2 Flow Rate FiO2 03/20/20 05:00 88 10 99/53 (68) 96 Nasal Cannula 2.0 03/20/20 04:00 98.6 98.6 Comments ros as mentioned as above other sys otherwise neg General: Alert, Oriented X4 HEENT: Other (nc at perrl nose clear shallow oropharynx neck no lad no thyromegaly) Lungs: Crackles Cardiovascular: S1, S2 Abdomen: Soft, Non-tender, Other (no mass) Neuro Exam: Alert Extremities: Other (Edema) Skin: Warm Labs Laboratory Tests Test 03/18/20 08:25 03/18/20 09:00 03/19/20 01:08 03/19/20 05:30 O2 Saturation 99 % (92-99) Arterial Blood pH 7.62 (7.35-7.45) Arterial Blood pCO2 at Patient Temp 26 mmHg (35-46) Arterial Blood pO2 at Patient Temp 154 mmHg (65-108) Arterial Blood HCO3 26 mmol/L (21-28) Arterial Blood Base Excess 5 mmol/L (-3-3) FiO2 50 Sodium Level 139 mmol/L (136-145) 139 mmol/L (136-145) Potassium Level 3.7 mmol/L (3.5-5.1) 3.9 mmol/L (3.5-5.1) Chloride Level 102 mmol/L (98-107) 103 mmol/L (98-107) Carbon Dioxide Level 27 mmol/L (21-32) 28 mmol/L (21-32) Anion Gap 10 (6-14) 8 (6-14) Blood Urea Nitrogen 33 mg/dL (7-20) 47 mg/dL (7-20) Creatinine 3.6 mg/dL (0.6-1.0) 4.8 mg/dL (0.6-1.0) Estimated GFR (Cockcroft-Gault) 15.4 11.1 Glucose Level 108 mg/dL (70-99) 133 mg/dL (70-99) Calcium Level 7.8 mg/dL (8.5-10.1) 7.7 mg/dL (8.5-10.1) Magnesium Level 1.4 mg/dL (1.8-2.4) Glucose (Fingerstick) 121 mg/dL (70-99) Test 03/19/20 10:10 O2 Saturation 93 % (92-99) Arterial Blood pH 7.44 (7.35-7.45) Arterial Blood pCO2 at Patient Temp 40 mmHg (35-46) Arterial Blood pO2 at Patient Temp 75 mmHg (65-108) Arterial Blood HCO3 26 mmol/L (21-28) Arterial Blood Base Excess 2 mmol/L (-3-3) FiO2 40 Laboratory Tests Test 03/19/20 10:10 O2 Saturation 93 % (92-99) Arterial Blood pH 7.44 (7.35-7.45) Arterial Blood pCO2 at Patient Temp 40 mmHg (35-46) Arterial Blood pO2 at Patient Temp 75 mmHg (65-108) Arterial Blood HCO3 26 mmol/L (21-28) Arterial Blood Base Excess 2 mmol/L (-3-3) FiO2 40 Medications Active Scripts Medications Dose Route/Sig Max Daily Dose Days Date Category [place] 5-325 Tablet (Acetaminophen/Hydrocodone Bitart) 1 Each Tablet 1-2 Tab PO Q4-6HRS 12/03/17 Rx Indomethacin 50 Mg Capsule 1 Cap PO TID 12/03/17 Rx Meclizine Hcl 12.5 Mg Tablet 25 Mg PO TID 7 09/08/17 Rx Calcium Gummies (Calcium Phosphate Trib/Vit D3) 1 Each Tab.chew 1 Each PO DAILY 09/06/17 Reported Omeprazole 20 Mg Tablet.dr 20 Mg PO DAILY PRN 04/01/17 Reported Comments cxr reviewed rll infilt atelectasis effusion ett ok Impression . IMPRESSION: 1. Acute hypoxemic respiratory failure. extubated on 03/19 2. Metabolic acidosis secondary to increased work of breathing. resolved 3. Acute pulmonary edema. acute diastolic chf 4. End-stage renal disease. 5. Acute metabolic encephalopathy. off sedation a and o 6. Elevated troponin, suspect demand ischemia. 7. Obesity. prob daksha 8. History of Merna's. Plan . 02 titration suspect has daksha bipap qhs refused, psg out pt Hemodialysis per nephrology Continue Zosyn fu cxs DVT GI prophylaxis elevate hob covid19 neg, repeat covid19 pending discussed w rn, rt RAJWINDER CORONA MD Mar 20, 2020 07:18
[2020-03-20] MEDS: PANTOPRAZOLE IV PUSH 40 MG VIAL. IVP SCH (08:12)
--- NOTE | 2020-03-20 11:06 | PDOC ---
PROGRESS NOTES Chief Complaint Chief Complaint ASSESSMENT Acute Hypoxic Resp Failure secondary to Volume Overload Suspected COVID-19 Acute Encephalopathy ESRD on HD Elevated Trop likely demand ischemia Obesity Payal's Dz hx of Vertigo PLAN extubated 03/19 tolerating NC well Vent/Sedation per pulm given elevated procal and ? PNA continue zosyn initial covid negative, awaiting repeat apprec pulm and nephro and cares cards consulted given elevated trop, likely demand ischemia DVT ppx: heparin sq FULL CODE okay to transfer to floor. wean abx felix. History of Present Illness History of Present Illness will attempt to liberate from vent today. following commands off sedation. continue abx. HD per nephro. Vitals Vitals Vital Signs Date Time Temp Pulse Resp B/P (MAP) Pulse Ox O2 Delivery O2 Flow Rate FiO2 03/20/20 08:00 Nasal Cannula 2.0 03/20/20 07:00 91 101/60 (74) 93 03/20/20 05:00 10 03/20/20 04:00 98.6 98.6 Physical Exam General: Other (Intubated and sedated) Heart: Regular rate, Normal S1, Normal S2 Lungs: Crackles Abdomen: Normal bowel sounds Extremities: No clubbing Skin: No rashes, No breakdown Assessment and Plan Assessmemt and Plan Problems Medical Problems: (1) Acute respiratory failure Status: Acute Comment Review of Relevant I have reviewed the following items timur (where applicable) has been applied. Labs Laboratory Tests Test 03/19/20 01:08 03/19/20 05:30 03/19/20 10:10 Glucose (Fingerstick) 121 mg/dL (70-99) Sodium Level 139 mmol/L (136-145) Potassium Level 3.9 mmol/L (3.5-5.1) Chloride Level 103 mmol/L (98-107) Carbon Dioxide Level 28 mmol/L (21-32) Anion Gap 8 (6-14) Blood Urea Nitrogen 47 mg/dL (7-20) Creatinine 4.8 mg/dL (0.6-1.0) Estimated GFR (Cockcroft-Gault) 11.1 Glucose Level 133 mg/dL (70-99) Calcium Level 7.7 mg/dL (8.5-10.1) O2 Saturation 93 % (92-99) Arterial Blood pH 7.44 (7.35-7.45) Arterial Blood pCO2 at Patient Temp 40 mmHg (35-46) Arterial Blood pO2 at Patient Temp 75 mmHg (65-108) Arterial Blood HCO3 26 mmol/L (21-28) Arterial Blood Base Excess 2 mmol/L (-3-3) FiO2 40 Microbiology 03/17/20 Blood Culture - Preliminary, Resulted NO GROWTH AFTER 3 DAYS Medications Current Medications Etomidate (Amidate) 20 mg STK-MED ONCE IV ; Start 03/17/20 at 08:10; Stop 03/17/20 at 08:10; Status DC Rocuronium [place] (Zemuron) 50 mg STK-MED ONCE .ROUTE ; Start 03/17/20 at 08:10; Stop 03/17/20 at 08:11; Status DC Propofol 50 ml @ As Directed STK-MED ONCE IV ; Start 03/17/20 at 08:16; Stop 03/17/20 at 08:17; Status DC Aspirin (Aspirin Rectal Supp) 300 mg 1X STAT AK Last administered on 03/17/20at 09:17; Start 03/17/20 at 08:42; Stop 03/17/20 at 08:58; Status DC Piperacillin Sod/ Tazobactam Sod 2.25 gm/Sodium Chloride 50 ml @ 100 mls/hr 1X ONCE IV Last administered on 03/17/20at 09:16; Start 03/17/20 at 09:00; Stop 03/17/20 at 09:29; Status DC Fentanyl Citrate (Fentanyl 2ml Vial) 100 mcg 1X ONCE IV Last administered on 03/17/20at 09:15; Start 03/17/20 at 09:00; Stop 03/17/20 at 09:01; Status DC Etomidate (Amidate) 20 mg 1X ONCE IV Last administered on 03/17/20at 09:20; Start 03/17/20 at 09:30; Stop 03/17/20 at 09:31; Status DC Rocuronium [place] (Zemuron) 100 mg 1X ONCE IV Last administered on 03/17/20at 09:20; Start 03/17/20 at 09:30; Stop 03/17/20 at 09:31; Status DC Sodium Chloride 1,000 ml @ 1,000 mls/hr 1X ONCE IV Last administered on 03/17/20at 09:21; Start 03/17/20 at 09:30; Stop 03/17/20 at 10:29; Status DC Propofol (Diprivan) 500 mg 1X ONCE IV Last administered on 03/17/20at 08:15; Start 03/17/20 at 09:30; Stop 03/17/20 at 09:39; Status DC Norepinephrine Bitartrate 8 mg/ Dextrose 258 ml @ 19.35 mls/ hr 1X ONCE IV Last administered on 03/17/20at 11:41; Start 03/17/20 at 11:30; Stop 03/18/20 at 00:49; Status DC Fentanyl Citrate (Fentanyl 2ml Vial) 100 mcg 1X ONCE IVP Last administered on 03/17/20at 11:42; Start 03/17/20 at 11:30; Stop 03/17/20 at 11:31; Status DC Propofol 50 ml @ As Directed STK-MED ONCE IV ; Start 03/17/20 at 11:45; Stop at 11:45; Status DC Propofol 50 ml @ 1.5 mls/hr 1X ONCE IV Last administered on 03/17/20at 11:51; Start 03/17/20 at 12:00; Stop 03/18/20 at 21:19; Status DC Sodium Chloride 250 ml @ 250 mls/hr 1X ONCE IV ; Start 03/17/20 at 12:00; Stop 03/17/20 at 12:59; Status DC Piperacillin Sod/ Tazobactam Sod (Zosyn Per Pharmacy) 1 each PRN DAILY PRN MC SEE COMMENTS; Start 03/17/20 at 12:15 Info (PHARMACY MONITORING -- do not chart) 1 each PRN DAILY PRN MC SEE COMMENTS; Start 03/17/20 at 12:15; Stop 03/19/20 at 14:51; Status DC Piperacillin Sod/ Tazobactam Sod 2.25 gm/Sodium Chloride 50 ml @ 100 mls/hr Q8HRS IV Last administered on 03/20/20at 06:27; Start 03/17/20 at 14:00 Pantoprazole Sodium (PROTONIX VIAL for IV PUSH) 40 mg DAILYAC IVP Last administered on 03/20/20at 08:12; Start 03/18/20 at 07:30 Heparin Sodium (Porcine) (Heparin Sodium) 5,000 unit Q8HRS SQ Last administered on 03/20/20at 06:27; Start 03/17/20 at 14:00 Fentanyl Citrate 30 ml @ 2.5 mls/hr CONT PRN IV SEE PROTOCOL; Start 03/17/20 at 12:30 Propofol 100 ml @ 3 mls/hr CONT PRN IV SEE PROTOCOL Last administered on 03/19/20at 06:56; Start 03/17/20 at 12:30 Midazolam HCl 100 ml @ 1 mls/hr CONT PRN IV SEE PROTOCOL; Start 03/17/20 at 12:30 Sodium Chloride 1,000 ml @ 1,000 mls/hr Q1H PRN IV hypotension; Start 03/17/20 at 13:00; Stop 03/17/20 at 18:59; Status DC Albumin Human 200 ml @ 200 mls/hr 1X PRN PRN IV Hypotension; Start 03/17/20 at 13:00; Stop 03/17/20 at 18:59; Status DC Sodium Chloride (Normal Saline Flush) 10 ml 1X PRN PRN IV AP catheter pack; Start 03/17/20 at 13:00; Stop 03/17/20 at 19:00; Status DC Sodium Chloride (Normal Saline Flush) 10 ml 1X PRN PRN IV ETHANOL QUALITY LEADER catheter pack; Start 03/17/20 at 13:00; Stop 03/17/20 at 19:00; Status DC Sodium Chloride 1,000 ml @ 400 mls/hr Q2H30M PRN IV PATENCY; Start 03/17/20 at 13:00; Stop 03/18/20 at 00:59; Status DC Info (PHARMACY MONITORING -- do not chart) 1 each PRN DAILY PRN MC SEE COMMENTS; Start 03/17/20 at 13:00; Status UNV Info (PHARMACY MONITORING -- do not chart) 1 each PRN DAILY PRN MC SEE COMMENTS; Start 03/17/20 at 13:00; Status UNV Pharmacy Consult (C.diff Med Screen By Rx) 1 each 1X ONCE MC ; Start 03/17/20 at 14:45; Stop 03/17/20 at 14:46; Status UNV Norepinephrine Bitartrate 8 mg/ Dextrose 258 ml @ 15.499 mls/ hr CONT PRN IV PER PROTOCOL Last administered on 03/19/20at 00:33; Start 03/17/20 at 20:15 Darbepoetin Juan Luis (ARANESP for DIALYSIS PTS) 60 mcg WEEKLYHS SQ Last administered on 03/18/20at 21:45; Start 03/18/20 at 21:00 Magnesium Sulfate 50 ml @ 25 mls/hr 1X ONCE IV Last administered on 03/18/20at 15:32; Start 03/18/20 at 15:30; Stop 03/18/20 at 17:29; Status DC Sodium Chloride 1,000 ml @ 1,000 mls/hr Q1H PRN IV hypotension; Start 03/19/20 at 11:59; Stop 03/19/20 at 17:58; Status DC Albumin Human 200 ml @ 200 mls/hr 1X PRN PRN IV Hypotension; Start 03/19/20 at 12:00; Stop 03/19/20 at 17:59; Status DC Sodium Chloride 1,000 ml @ 400 mls/hr Q2H30M PRN IV PATENCY; Start 03/19/20 at 11:59; Stop 03/19/20 at 23:58; Status DC Info (PHARMACY MONITORING -- do not chart) 1 each PRN DAILY PRN MC SEE COMMENTS; Start 03/19/20 at 12:00; Status UNV Info (PHARMACY MONITORING -- do not chart) 1 each PRN DAILY PRN MC SEE COMMENTS; Start 03/19/20 at 12:00 Active Scripts Active [place] 5-325 Tablet (Acetaminophen/Hydrocodone Bitart) 1 Each Tablet 1-2 Tab PO Q4-6HRS Indomethacin 50 Mg Capsule 1 Cap PO TID Meclizine Hcl 12.5 Mg Tablet 25 Mg PO TID 7 Days Reported Protonix (Pantoprazole Sodium) 40 Mg Tablet.dr 40 Mg PO DAILYAC Atorvastatin Calcium 10 Mg Tablet 1 Tab PO DAILY Ambien (Zolpidem Tartrate) 5 Mg Tablet 5 Mg PO PRN QHS PRN Calcium Acetate 667 Mg Tablet 1 Tab PO TID 30 Days Calcium Gummies (Calcium Phosphate Trib/Vit D3) 1 Each Tab.chew 1 Each PO DAILY Omeprazole 20 Mg Tablet. 20 Mg PO DAILY PRN Vitals/I & O Vital Sign - Last 24 Hours 03/19/20 03/19/20 03/19/20 03/19/20 11:21 12:29 12:32 13:08 Temp 98.9 98.9 Pulse 100 101 104 Resp 20 16 20 B/P (MAP) 140/64 (89) 141/68 (92) 144/70 (94) Pulse Ox 92 96 100 O2 Delivery Nasal Cannula Nasal Cannula Nasal Cannula Nasal Cannula O2 Flow Rate 3.0 3.0 2.0 2.0 03/19/20 03/19/20 03/19/20 03/19/20 14:11 15:16 16:08 16:19 Pulse 101 106 104 Resp 24 26 24 B/P (MAP) 163/83 (109) 177/84 (115) 159/86 (110) Pulse Ox 99 100 96 O2 Delivery Nasal Cannula Nasal Cannula Nasal Cannula Nasal Cannula O2 Flow Rate 2.0 2.0 2.0 2.0 03/19/20 03/19/20 03/19/20 03/19/20 17:00 18:03 19:00 20:00 Temp 98.6 99.2 98.6 99.2 Pulse 114 102 112 102 Resp 34 18 26 16 B/P (MAP) 137/69 (91) 107/62 (77) 93/51 (65) 84/47 (59) Pulse Ox 94 98 96 99 O2 Delivery Nasal Cannula Nasal Cannula Nasal Cannula Nasal Cannula O2 Flow Rate 2.0 2.0 2.0 2.0 03/19/20 03/19/20 03/19/20 03/19/20 20:00 21:00 22:00 23:00 Pulse 100 100 105 Resp 30 21 25 B/P (MAP) 91/54 (66) 90/53 (65) 84/55 (65) Pulse Ox 98 94 98 O2 Delivery Nasal Cannula Nasal Cannula Nasal Cannula Nasal Cannula O2 Flow Rate 2.0 2.0 2.0 2.0 03/20/20 03/20/20 03/20/20 03/20/20 00:00 00:00 01:00 02:08 Temp 98.9 98.9 Pulse 100 100 88 Resp 25 15 14 B/P (MAP) 91/52 (65) 100/59 (73) 103/55 (71) Pulse Ox 98 98 97 O2 Delivery Nasal Cannula Nasal Cannula Nasal Cannula Nasal Cannula O2 Flow Rate 2.0 2.0 2.0 2.0 03/20/20 03/20/20 03/20/20 03/20/20 03:00 04:00 04:00 05:00 Temp 98.6 98.6 Pulse 92 90 88 Resp 15 12 10 B/P (MAP) 112/54 (73) 116/58 (77) 99/53 (68) Pulse Ox 100 92 96 O2 Delivery Nasal Cannula Nasal Cannula Nasal Cannula Nasal Cannula O2 Flow Rate 2.0 2.0 2.0 2.0 03/20/20 03/20/20 03/20/20 06:00 07:00 08:00 Pulse 98 91 B/P (MAP) 117/84 (95) 101/60 (74) Pulse Ox 98 93 O2 Delivery Nasal Cannula Nasal Cannula Nasal Cannula O2 Flow Rate 2.0 2.0 2.0 Intake and Output 03/19/20 03/19/20 03/20/20 15:00 23:00 07:00 Intake Total 150 ml 442 ml 240 ml Output Total 850 ml 335 ml 300 ml Balance -700 ml 107 ml -60 ml Justicifation of Admission Dx: Justifications for Admission: Justification of Admission Dx: Yes Respiratory Failure: Mechanical Ventilation RIGOBERTO ABBOTT MD Mar 20, 2020 11:06
[2020-03-21 02:00] VITALS: BP 93/59
[2020-03-21 04:00] VITALS: BP 113/60
[2020-03-21] MEDS: PIPERACILLIN/TAZOBACTAM 2.25 GM in IV NORMAL SALINE 50ML 50 ML IV SCH ×3 (06:22→22:03)
[2020-03-21] MEDS: PANTOPRAZOLE 40 MG TABLET.DR. PO SCH (06:22)
[2020-03-21] MEDS: HEPARIN for SUB-Q USE 5,000 UNIT/ML VIAL. SQ SCH ×3 (06:24→22:04)
[2020-03-21 08:00] VITALS: BP 141/85
[2020-03-21 12:00] VITALS: BP 106/68
--- NOTE | 2020-03-21 12:52 | PDOC ---
PULMONARY PROGRESS NOTES Subjective extubated 03/19, patient on oxygen, no respiratory distress Vitals Vital Signs Date Time Temp Pulse Resp B/P (MAP) Pulse Ox O2 Delivery O2 Flow Rate FiO2 03/21/20 08:25 100 Nasal Cannula 2.0 03/21/20 08:00 98.3 86 18 141/85 (103) 98.3 ROS: No Nausea, No Chest Pain, No Abdominal Pain, No Increase Cough General: Alert, Oriented X4 HEENT: Other (nc at perrl nose clear shallow oropharynx neck no lad no thyromegaly) Lungs: Crackles Cardiovascular: S1, S2 Abdomen: Soft, Non-tender, Other (no mass) Neuro Exam: Alert Extremities: Other (Edema) Skin: Warm Medications Active Scripts Medications Dose Route/Sig Max Daily Dose Days Date Category [place] 5-325 Tablet (Acetaminophen/Hydrocodone Bitart) 1 Each Tablet 1-2 Tab PO Q4-6HRS 12/03/17 Rx Indomethacin 50 Mg Capsule 1 Cap PO TID 12/03/17 Rx Meclizine Hcl 12.5 Mg Tablet 25 Mg PO TID 7 09/08/17 Rx Calcium Gummies (Calcium Phosphate Trib/Vit D3) 1 Each Tab.chew 1 Each PO DAILY 09/06/17 Reported Omeprazole 20 Mg Tablet.dr 20 Mg PO DAILY PRN 04/01/17 Reported Comments cxr reviewed rll infilt atelectasis effusion ett ok Impression . IMPRESSION: 1. Acute hypoxemic respiratory failure. extubated on 03/19 2. Metabolic acidosis secondary to increased work of breathing. resolved 3. Acute pulmonary edema. acute diastolic chf 4. End-stage renal disease. 5. Acute metabolic encephalopathy. off sedation a and o 6. Elevated troponin, suspect demand ischemia. 7. Obesity. prob daksha 8. History of Merna's. Plan . Doing well on oxygen Possible outpatient polysomnogram Hemodialysis per nephrology Continue Zosyn fu cxs DVT GI prophylaxis elevate hob covid19 neg, repeat covid19 pending ARMINDA MALCOLM MD Mar 21, 2020 12:52
--- NOTE | 2020-03-21 13:21 | PDOC ---
[facility] PROGRESS NOTE Chief Complaint Chief Complaint Acute Hypoxic Resp Failure secondary to Volume Overload Suspected COVID-19 Acute Encephalopathy ESRD on HD Elevated Trop likely demand ischemia Obesity Payal's Dz hx of Vertigo History of Present Illness History of Present Illness 03/21/2020 Patient seen and examined in the COVID-19 unit ICU Chart reviewed Discussed with RN She is now off of IV pressors Discussed with case management Chart reviewed Vitals/I&O Vitals/I&O: Vital Signs Date Time Temp Pulse Resp B/P (MAP) Pulse Ox O2 Delivery O2 Flow Rate FiO2 03/21/20 08:25 100 Nasal Cannula 2.0 03/21/20 08:00 98.3 86 18 141/85 (103) 98.3 I & O 03/20/20 03/20/20 03/21/20 15:00 23:00 07:00 Intake Total 458 ml 120 ml Output Total 125 ml 500 ml 300 ml Balance -125 ml -42 ml -180 ml Physical Exam General: Alert, Cooperative, Other (Quite weak) Heart: Regular rate Lungs: Crackles Abdomen: Soft Extremities: No edema, Normal pulses Skin: No rashes, No breakdown Assessment and Plan Assessmemt and Plan Problems Medical Problems: (1) Acute respiratory failure Status: Acute Acute Hypoxic Resp Failure secondary to Volume Overload Suspected COVID-19 Acute Encephalopathy ESRD on HD Elevated Trop likely demand ischemia Obesity Payal's Dz hx of Vertigo PLAN IV Zosyn COVID-19 /respiratory isolation Saturday dialysis Home meds Trend labs given elevated procal and ? PNA continue zosyn initial covid negative, awaiting repeat apprec pulm and nephro and cares cards consulted given elevated trop, likely demand ischemia DVT ppx: heparin sq FULL CODE Total time 31-minute Per pulmonary please see the following below 1. Acute hypoxemic respiratory failure. extubated on 03/19 2. Metabolic acidosis secondary to increased work of breathing. resolved 3. Acute pulmonary edema. acute diastolic chf 4. End-stage renal disease. 5. Acute metabolic encephalopathy. off sedation a and o 6. Elevated troponin, suspect demand ischemia. 7. Obesity. prob daksha 8. History of Merna's. Plan 02 titration suspect has daksha bipap qhs refused, psg out pt Hemodialysis per nephrology Continue Zosyn fu cxs DVT GI prophylaxis elevate hob covid19 neg, repeat covid19 pending Comment Review of Relevant I have reviewed the following items timur (where applicable) has been applied. Medications: Current Medications Medications (Trade) Dose Ordered Sig/Solomon Route PRN Reason Start Time Stop Time Status Last Admin Dose Admin Pantoprazole Sodium (Protonix) 40 mg DAILYAC PO 03/21/20 07:30 03/21/20 06:22 Justicifation of Admission Dx: Justifications for Admission: Justification of Admission Dx: Yes Respiratory Failure: Mechanical Ventilation ROS BUSTILLO III DO Mar 21, 2020 13:21
--- NOTE | 2020-03-21 14:20 | NUR ---
SS following up with discharge planning. SS reviewed pt chart and discussed with pt RN. Pt is from home with spouse and is currently requiring oxygen. Pt on IV Zosyn. Pt COVID19 negative and is now being retested and is COVID19 pending. PT ordered to assess needs. SS will continue to follow for discharge planning.
--- NOTE | 2020-03-21 14:51 | PDOC ---
Renal-Progress Notes Subjective Notes Notes FEELING BETTER, LESS SOB History of Present Illness Hx of present illness STABLE Vitals Vitals Vital Signs Date Time Temp Pulse Resp B/P (MAP) Pulse Ox O2 Delivery O2 Flow Rate FiO2 03/21/20 08:25 100 Nasal Cannula 2.0 03/21/20 08:00 98.3 86 18 141/85 (103) 98.3 Weight Weight [ ] I.O. Intake and Output Intake and Output 03/21/20 06:59 Intake Total 578 ml Output Total 1050 ml Balance -472 ml Intake Oral 360 ml Other 218 ml Output Urine Total 550 ml Emesis 500 ml Micro Micro Microbiology 03/17/20 Blood Culture - Preliminary, Resulted NO GROWTH AFTER 4 DAYS Review of Systems Constitutional: yes: weakness, alert, oriented Ears/Nose/Throat: Yes: no symptom reported Eyes: Yes: no symptom reported Pulmonary: Yes dyspnea Cardiovascular: Yes no symptom reported Genitourinary: Yes: incontinence Musculoskeletal: Yes: muscle stiffness Skin: Yes no symptom reported Psychiatric/Neurological: Yes: no symptom reported Endocrine: Yes: no symptom reported Physical Exam General Appearance: no apparent distress Skin: warm Respiratory: bilateral CTA Heart: S1S2 Abdomen: soft, bowel sounds present Genitourinary: bladder flat Extremities: pulses present Neurology: alert, oriented Assessment Assessment IMP ESRD ANEMIA ACUTE RESP FAILURE HX OF WG S/P EXTUBATION PLAN O2 NEEDED HD TOMORROW MEMO NEEDED AWAITING 2ND COVID TEST. 1ST TEST NEG WILL FOLLOW . HIPOLITO TAYLOR MD Mar 21, 2020 14:51
--- NOTE | 2020-03-21 15:24 | PDOC ---
ANAY MARTIN APRN 03/21/20 1524: CARDIO Progress Notes Date and Time Date of Service 03/21/20 Time of Evaluation 1050 Subjective Subjective: No Chest Pain, No Palpitations, Other (SOA improved ) Vitals Vitals Vital Signs Date Time Temp Pulse Resp B/P (MAP) Pulse Ox O2 Delivery O2 Flow Rate FiO2 03/21/20 08:25 100 Nasal Cannula 2.0 03/21/20 08:00 98.3 86 18 141/85 (103) 98.3 Weight Weight [ ] Input and Output Intake and Output Intake and Output 03/21/20 07:00 Intake Total 578 ml Output Total 925 ml Balance -347 ml Intake Oral 360 ml Other 218 ml Output Urine Total 425 ml Emesis 500 ml Microbiology Micro Microbiology 03/17/20 Blood Culture - Preliminary, Resulted NO GROWTH AFTER 4 DAYS Review of Systems Constitutional: yes: weakness, alert, oriented Ears/Nose/Throat: Yes: no symptom reported Eyes: Yes: no symptom reported Pulmonary: Yes dyspnea Cardiovascular: Yes no symptom reported Genitourinary: Yes: incontinence Musculoskeletal: Yes: muscle stiffness Skin: Yes no symptom reported Psychiatric/Neurological: Yes: no symptom reported Endocrine: Yes: no symptom reported Physical Exam HEENT: Neck Supple W Full Motion Chest: Symmetric LUNGS: Other (diminished bases) Heart: RRR Abdomen: Soft N/T Extremities: No Edema Neurology: alert, oriented, follow commands Assessment Assessment 1. Acute respiratory failure, probable PNA. COVID negative. s/p extubation. On 2L NC. Repeat COVID pending 2. Leukocytosis 3. Mild troponin elevation; highest 0.7. Probable type II, demand ischemia 4. Acute on chronic diastolic CHF; better compensated 5. Elevated LFTs 6. ESRD on HD Recommendations Am labs Fluid offloading via HD Echo to assess LV systolic function Consider outpatient ischemic evaluation Supportive care Justicifation of Admission Dx: Justifications for Admission: Justification of Admission Dx: Yes Respiratory Failure: Mechanical Ventilation ASTON VARGAS MD 03/21/20 [id number]: CARDIO Progress Notes Assessment Assessment Patient seen and examined. Agree with PLUMBER ASSISTANT's assessment and plan. Ac resp failure improved s/p extubation. Covid test negative, repeat test pen ding Tele did not show any arrhythmias Ac on chr diast HF better compensated Slight trop elevation prob demand ischemia Check 2D echo to assess LVF Consider ischemic eval as outpatient ANAY MARTIN APRN Mar 21, 2020 15:24 ASTON VARGAS MD Mar 21, 2020 18:29
[2020-03-21 20:06] VITALS: BP 137/70
--- NOTE | 2020-03-21 23:05 | NUR ---
Nursing Note: Attempted to place peripheral IV so Femoral triple lumen could be removed. Unsuccessful attempt. Will see if PICC or peripheral will be needed. Will leave in Femoral line for now, pt is in bed.
[2020-03-21 23:27] VITALS: BP 122/66
[2020-03-22] VITALS (10 sets, daily range): BP systolic 85–163; BP diastolic 51–85
[2020-03-22 04:59] LABS: RED BLOOD COUNT 2.22 x10^6/uL (3.50-5.40); RED CELL DISTRIBUTION WIDTH 21.1 % (11.5-14.5); WHITE BLOOD COUNT 4.9 x10^3/uL (4.0-11.0)
[2020-03-22 05:00] LABS: CALCIUM 8.1 mg/dL (8.5-10.1); CREATININE 5.7 mg/dL (0.6-1.0); GFR 9.1
[2020-03-22 05:03] LABS: HEMOGLOBIN 6.8 g/dL (12.0-15.5)
[2020-03-22 05:04] LABS: HEMATOCRIT 20.9 % (36.0-47.0)
[2020-03-22] MEDS: PIPERACILLIN/TAZOBACTAM 2.25 GM in IV NORMAL SALINE 50ML 50 ML IV SCH ×3 (05:44→21:47)
[2020-03-22] MEDS: HEPARIN for SUB-Q USE 5,000 UNIT/ML VIAL. SQ SCH ×3 (05:48→21:48)
[2020-03-22] MEDS: PANTOPRAZOLE 40 MG TABLET.DR. PO SCH (06:34)
[2020-03-22] MEDS ORDERED: IV NORMAL SALINE 1000ML BAG 1,000 ML IV PRN ×2 (08:14)
[2020-03-22] MEDS ORDERED: DIALYSIS PATIENT. MC PRN ×2 (08:15)
[2020-03-22] MEDS ORDERED: ALBUMIN HUMAN 25% 200 ML IV PRN (08:15)
--- NOTE | 2020-03-22 11:25 | PDOC ---
Renal-Progress Notes Subjective Notes Notes NO SOB History of Present Illness Hx of present illness IMPROVED Vitals Vitals Vital Signs Date Time Temp Pulse Resp B/P (MAP) Pulse Ox O2 Delivery O2 Flow Rate FiO2 03/22/20 08:00 Nasal Cannula 2.0 03/22/20 07:00 98.2 88 20 111/70 (84) 94 98.2 Weight Weight [ ] I.O. Intake and Output Intake and Output 03/22/20 07:00 Intake Total 840 ml Output Total 777 ml Balance 63 ml Intake Oral 840 ml Output Urine Total 775 ml Stool Total 2 ml # Voids 2 # Bowel Movements 1 Labs Labs Laboratory Tests Test 03/22/20 04:45 White Blood Count 4.9 x10^3/uL (4.0-11.0) Red Blood Count 2.22 x10^6/uL (3.50-5.40) Hemoglobin 6.8 g/dL (12.0-15.5) Hematocrit 20.9 % (36.0-47.0) Mean Corpuscular Volume 94 fL (79-100) Mean Corpuscular Hemoglobin 31 pg (25-35) Mean Corpuscular Hemoglobin Concent 33 g/dL (31-37) Red Cell Distribution Width 21.1 % (11.5-14.5) Platelet Count 126 x10^3/uL (140-400) Sodium Level 141 mmol/L (136-145) Potassium Level 4.0 mmol/L (3.5-5.1) Chloride Level 104 mmol/L (98-107) Carbon Dioxide Level 28 mmol/L (21-32) Anion Gap 9 (6-14) Blood Urea Nitrogen 46 mg/dL (7-20) Creatinine 5.7 mg/dL (0.6-1.0) Estimated GFR (Cockcroft-Gault) 9.1 Glucose Level 93 mg/dL (70-99) Calcium Level 8.1 mg/dL (8.5-10.1) Magnesium Level 2.0 mg/dL (1.8-2.4) Micro Micro Microbiology 03/17/20 Blood Culture - Final, Complete NO GROWTH AFTER 5 DAYS Review of Systems Constitutional: yes: weakness, alert, oriented Ears/Nose/Throat: Yes: no symptom reported Eyes: Yes: no symptom reported Pulmonary: Yes dyspnea Cardiovascular: Yes no symptom reported Genitourinary: Yes: incontinence Musculoskeletal: Yes: muscle stiffness Skin: Yes no symptom reported Psychiatric/Neurological: Yes: no symptom reported Endocrine: Yes: no symptom reported Physical Exam General Appearance: no apparent distress Skin: warm Respiratory: bilateral CTA Heart: S1S2 Abdomen: soft, bowel sounds present Genitourinary: bladder flat Extremities: pulses present Neurology: alert, oriented, follow commands Assessment Assessment IMP ESRD ANEMIA ACUTE RESP FAILURE HX OF WG S/P EXTUBATION PLAN O2 NEEDED HD TODAY UF TO DW WEAN O2 MEMO NEEDED WILL FOLLOW . HIPOLITO TAYLOR MD Mar 22, 2020 11:25
--- NOTE | 2020-03-22 11:47 | NUR ---
SS follow up with discharge planning. SS reviewed pt chart and discussed with pt RN. Pt hemoglobin dropped and pt receiving blood today. Pt currently in dialysis. Pt has outpatient dialysis on Saturday, , and Saturday at [facility], ; fax [phone]. Pt on IV Zosyn. PT recommended home with home healthcare. Pt currently requiring oxygen. Pt has home oxygen at home. SS will continue to follow for discharge planning.
--- NOTE | 2020-03-22 12:18 | PDOC ---
ANAY MARTIN FLOSSER 03/22/20 1218: CARDIO Progress Notes Date and Time Date of Service 03/22/20 Time of Evaluation 1050 Subjective Subjective: No Chest Pain, No Palpitations, Other (SOA improved ) Vitals Vitals Vital Signs Date Time Temp Pulse Resp B/P (MAP) Pulse Ox O2 Delivery O2 Flow Rate FiO2 03/22/20 12:11 97.9 82 18 163/85 97.9 03/22/20 08:00 Nasal Cannula 2.0 03/22/20 07:00 94 Weight Weight [ ] Input and Output Intake and Output Intake and Output 03/22/20 07:00 Intake Total 840 ml Output Total 777 ml Balance 63 ml Intake Oral 840 ml Output Urine Total 775 ml Stool Total 2 ml # Voids 2 # Bowel Movements 1 Laboratory Labs Laboratory Tests Test 03/22/20 04:45 White Blood Count 4.9 x10^3/uL (4.0-11.0) Red Blood Count 2.22 x10^6/uL (3.50-5.40) Hemoglobin 6.8 g/dL (12.0-15.5) Hematocrit 20.9 % (36.0-47.0) Mean Corpuscular Volume 94 fL (79-100) Mean Corpuscular Hemoglobin 31 pg (25-35) Mean Corpuscular Hemoglobin Concent 33 g/dL (31-37) Red Cell Distribution Width 21.1 % (11.5-14.5) Platelet Count 126 x10^3/uL (140-400) Sodium Level 141 mmol/L (136-145) Potassium Level 4.0 mmol/L (3.5-5.1) Chloride Level 104 mmol/L (98-107) Carbon Dioxide Level 28 mmol/L (21-32) Anion Gap 9 (6-14) Blood Urea Nitrogen 46 mg/dL (7-20) Creatinine 5.7 mg/dL (0.6-1.0) Estimated GFR (Cockcroft-Gault) 9.1 Glucose Level 93 mg/dL (70-99) Calcium Level 8.1 mg/dL (8.5-10.1) Magnesium Level 2.0 mg/dL (1.8-2.4) Microbiology Micro Microbiology 03/17/20 Blood Culture - Final, Complete NO GROWTH AFTER 5 DAYS Review of Systems Constitutional: yes: weakness, alert, oriented Ears/Nose/Throat: Yes: no symptom reported Eyes: Yes: no symptom reported Pulmonary: Yes dyspnea Cardiovascular: Yes no symptom reported Genitourinary: Yes: incontinence Musculoskeletal: Yes: muscle stiffness Skin: Yes no symptom reported Psychiatric/Neurological: Yes: no symptom reported Endocrine: Yes: no symptom reported Physical Exam HEENT: Neck Supple W Full Motion Chest: Symmetric LUNGS: Other (diminished bases) Heart: RRR Abdomen: Soft N/T Extremities: No Edema Neurology: alert, oriented, follow commands Assessment Assessment 1. Acute respiratory failure, probable PNA. COVID negative. s/p extubation. On 2L NC. Repeat COVID pending 2. Leukocytosis 3. Mild troponin elevation; highest 0.7. Probable type II, demand ischemia 4. Acute on chronic diastolic CHF; better compensated 5. Elevated LFTs 6. ESRD on HD 7. Anemia; to be transfused Recommendations Fluid offloading via HD Echo today to assess LV systolic function Consider outpatient ischemic evaluation Supportive care Justicifation of Admission Dx: Justifications for Admission: Justification of Admission Dx: Yes Respiratory Failure: Mechanical Ventilation ASTON VARGAS MD 03/23/20 1154: CARDIO Progress Notes Assessment Assessment Patient seen and examined 03/22/20. Agree with LITIGATION ASSOCIATE's assessment and plan. Acute on chronic diastolic heart failure better compensated. Slight troponin elevation probably demand ischemia. Check 2D echo to assess LV function. Plan outpatient ischemic evaluation ANAY MARTIN APRN Mar 22, 2020 12:18 ASTON VARGAS MD Mar 23, 2020 11:54
--- NOTE | 2020-03-22 13:11 | PDOC ---
[employer] PROGRESS NOTE Chief Complaint Chief Complaint Acute Hypoxic Resp Failure secondary to Volume Overload Suspected - Acute Encephalopathy ESRD on HD Elevated Trop likely demand ischemia Obesity Payal's Dz hx of Vertigo History of Present Illness History of Present Illness 03/22/2020 Patient seen and examined in the COVID-19 unit ICU Chart reviewed Discussed with RN Vitals/I&O Vitals/I&O: Vital Signs Date Time Temp Pulse Resp B/P (MAP) Pulse Ox O2 Delivery O2 Flow Rate FiO2 03/22/20 12:11 97.9 82 18 163/85 97.9 03/22/20 08:00 Nasal Cannula 2.0 03/22/20 07:00 94 I & O 03/21/20 03/21/20 03/22/20 15:00 23:00 07:00 Intake Total 840 ml Output Total 402 ml 375 ml Balance 438 ml -375 ml Physical Exam General: Alert, Cooperative, Other (Quite weak) Heart: Regular rate Lungs: Crackles Abdomen: Soft Extremities: No edema, Normal pulses Skin: No rashes, No breakdown Labs Labs: Laboratory Tests Test 03/22/20 04:45 White Blood Count 4.9 x10^3/uL (4.0-11.0) Red Blood Count 2.22 x10^6/uL (3.50-5.40) Hemoglobin 6.8 g/dL (12.0-15.5) Hematocrit 20.9 % (36.0-47.0) Mean Corpuscular Volume 94 fL (79-100) Mean Corpuscular Hemoglobin 31 pg (25-35) Mean Corpuscular Hemoglobin Concent 33 g/dL (31-37) Red Cell Distribution Width 21.1 % (11.5-14.5) Platelet Count 126 x10^3/uL (140-400) Sodium Level 141 mmol/L (136-145) Potassium Level 4.0 mmol/L (3.5-5.1) Chloride Level 104 mmol/L (98-107) Carbon Dioxide Level 28 mmol/L (21-32) Anion Gap 9 (6-14) Blood Urea Nitrogen 46 mg/dL (7-20) Creatinine 5.7 mg/dL (0.6-1.0) Estimated GFR (Cockcroft-Gault) 9.1 Glucose Level 93 mg/dL (70-99) Calcium Level 8.1 mg/dL (8.5-10.1) Magnesium Level 2.0 mg/dL (1.8-2.4) Assessment and Plan Assessmemt and Plan Problems Medical Problems: (1) Acute respiratory failure Status: Acute Assessment 1. Acute respiratory failure, probable PNA. COVID negative. s/p extubation. On 2L NC. Repeat COVID pending 2. Leukocytosis 3. Mild troponin elevation; highest 0.7. Probable type II, demand ischemia 4. Acute on chronic diastolic CHF; better compensated 5. Elevated LFTs 6. ESRD on HD 7. Anemia; to be transfused Plan: IV Zosyn COVID-19 /respiratory isolation Saturday dialysis Home meds Trend labs given elevated procal and ? PNA continue zosyn initial covid negative, awaiting repeat apprec pulm and nephro and cares cards consulted given elevated trop, likely demand ischemia DVT ppx: heparin sq FULL CODE Comment Review of Relevant I have reviewed the following items timur (where applicable) has been applied. Justicifation of Admission Dx: Justifications for Admission: Justification of Admission Dx: Yes Respiratory Failure: Mechanical Ventilation ROS BUSTILLO III DO Mar 22, 2020 13:11
--- NOTE | 2020-03-22 14:02 | PDOC ---
PULMONARY PROGRESS NOTES Subjective extubated 03/19, patient on oxygen, no respiratory distress Vitals Vital Signs Date Time Temp Pulse Resp B/P (MAP) Pulse Ox O2 Delivery O2 Flow Rate FiO2 03/22/20 13:11 98.1 88 18 145/82 98.1 03/22/20 08:00 Nasal Cannula 2.0 03/22/20 07:00 94 ROS: No Nausea, No Chest Pain, No Abdominal Pain, No Increase Cough General: Alert, Oriented X4 HEENT: Other (nc at perrl nose clear shallow oropharynx neck no lad no thyromegaly) Lungs: Crackles Cardiovascular: S1, S2 Abdomen: Soft, Non-tender, Other (no mass) Neuro Exam: Alert Extremities: Other (Edema) Skin: Warm Labs Laboratory Tests Test 03/22/20 04:45 White Blood Count 4.9 x10^3/uL (4.0-11.0) Red Blood Count 2.22 x10^6/uL (3.50-5.40) Hemoglobin 6.8 g/dL (12.0-15.5) Hematocrit 20.9 % (36.0-47.0) Mean Corpuscular Volume 94 fL (79-100) Mean Corpuscular Hemoglobin 31 pg (25-35) Mean Corpuscular Hemoglobin Concent 33 g/dL (31-37) Red Cell Distribution Width 21.1 % (11.5-14.5) Platelet Count 126 x10^3/uL (140-400) Sodium Level 141 mmol/L (136-145) Potassium Level 4.0 mmol/L (3.5-5.1) Chloride Level 104 mmol/L (98-107) Carbon Dioxide Level 28 mmol/L (21-32) Anion Gap 9 (6-14) Blood Urea Nitrogen 46 mg/dL (7-20) Creatinine 5.7 mg/dL (0.6-1.0) Estimated GFR (Cockcroft-Gault) 9.1 Glucose Level 93 mg/dL (70-99) Calcium Level 8.1 mg/dL (8.5-10.1) Magnesium Level 2.0 mg/dL (1.8-2.4) Laboratory Tests Test 03/22/20 04:45 White Blood Count 4.9 x10^3/uL (4.0-11.0) Red Blood Count 2.22 x10^6/uL (3.50-5.40) Hemoglobin 6.8 g/dL (12.0-15.5) Hematocrit 20.9 % (36.0-47.0) Mean Corpuscular Volume 94 fL (79-100) Mean Corpuscular Hemoglobin 31 pg (25-35) Mean Corpuscular Hemoglobin Concent 33 g/dL (31-37) Red Cell Distribution Width 21.1 % (11.5-14.5) Platelet Count 126 x10^3/uL (140-400) Sodium Level 141 mmol/L (136-145) Potassium Level 4.0 mmol/L (3.5-5.1) Chloride Level 104 mmol/L (98-107) Carbon Dioxide Level 28 mmol/L (21-32) Anion Gap 9 (6-14) Blood Urea Nitrogen 46 mg/dL (7-20) Creatinine 5.7 mg/dL (0.6-1.0) Estimated GFR (Cockcroft-Gault) 9.1 Glucose Level 93 mg/dL (70-99) Calcium Level 8.1 mg/dL (8.5-10.1) Magnesium Level 2.0 mg/dL (1.8-2.4) Medications Active Scripts Medications Dose Route/Sig Max Daily Dose Days Date Category [place] 5-325 Tablet (Acetaminophen/Hydrocodone Bitart) 1 Each Tablet 1-2 Tab PO Q4-6HRS 12/03/17 Rx Indomethacin 50 Mg Capsule 1 Cap PO TID 12/03/17 Rx Meclizine Hcl 12.5 Mg Tablet 25 Mg PO TID 7 09/08/17 Rx Calcium Gummies (Calcium Phosphate Trib/Vit D3) 1 Each Tab.chew 1 Each PO DAILY 09/06/17 Reported Omeprazole 20 Mg Tablet.dr 20 Mg PO DAILY PRN 04/01/17 Reported Comments cxr reviewed rll infilt atelectasis effusion ett ok Impression . IMPRESSION: 1. Acute hypoxemic respiratory failure. extubated on 03/19 2. Metabolic acidosis secondary to increased work of breathing. resolved 3. Acute pulmonary edema. Acute on chronic diastolic heart 4. End-stage renal disease. 5. Acute metabolic encephalopathy. 6. Elevated troponin, suspect demand ischemia. 7. Obesity. prob daksha 8. History of Merna's. 9. Acute drop in hemoglobin 10. SARS-CoV-2 testing x2- Plan . Hemodialysis today. Transfused today DVT prophylax Empiric antibiotics ARMINDA MALCOLM MD Mar 22, 2020 14:02
[2020-03-22 16:36] LABS: HEMATOCRIT 25.8 % (36.0-47.0); HEMOGLOBIN 8.8 g/dL (12.0-15.5)
[2020-03-22] MEDS: LACTOBACILLUS RHAMNOSUS GG 1 CAPSULE. PO SCH (21:47)
[2020-03-23] VITALS (9 sets, daily range): BP systolic 55–112; BP diastolic 33–75
--- NOTE | 2020-03-23 00:43 | NUR ---
B/P low Page to Dr. Moser's service at 0031. Return call from Dr. Montes. Order for 500 cc bolus x 1.
[2020-03-23] MEDS ORDERED: IV NORMAL SALINE 500ML BAG 500 ML IV ONE (01:00)
[2020-03-23] MEDS: PIPERACILLIN/TAZOBACTAM 2.25 GM in IV NORMAL SALINE 50ML 50 ML IV SCH ×3 (06:07→21:00)
[2020-03-23] MEDS: HEPARIN for SUB-Q USE 5,000 UNIT/ML VIAL. SQ SCH ×3 (06:08→21:00)
--- NOTE | 2020-03-23 09:25 | PDOC ---
PULMONARY PROGRESS NOTES Subjective extubated 03/19, patient on oxygen, no respiratory distress Patient was on oxygen at home, positive clinical symptoms and signs of sleep apnea Vitals Vital Signs Date Time Temp Pulse Resp B/P (MAP) Pulse Ox O2 Delivery O2 Flow Rate FiO2 03/23/20 04:10 98.1 91 15 91/73 (79) 93 Nasal Cannula 2.0 98.1 ROS: No Nausea, No Chest Pain, No Abdominal Pain, No Increase Cough General: Alert, Oriented X4 HEENT: Other (nc at perrl nose clear shallow oropharynx neck no lad no thyromegaly) Lungs: Crackles Cardiovascular: S1, S2 Abdomen: Soft, Non-tender, Other (no mass) Neuro Exam: Alert Extremities: Other (Edema) Skin: Warm Labs Laboratory Tests Test 03/22/20 04:45 03/22/20 16:00 White Blood Count 4.9 x10^3/uL (4.0-11.0) Red Blood Count 2.22 x10^6/uL (3.50-5.40) Hemoglobin 6.8 g/dL (12.0-15.5) 8.8 g/dL (12.0-15.5) Hematocrit 20.9 % (36.0-47.0) 25.8 % (36.0-47.0) Mean Corpuscular Volume 94 fL (79-100) Mean Corpuscular Hemoglobin 31 pg (25-35) Mean Corpuscular Hemoglobin Concent 33 g/dL (31-37) 34 g/dL (31-37) Red Cell Distribution Width 21.1 % (11.5-14.5) Platelet Count 126 x10^3/uL (140-400) Sodium Level 141 mmol/L (136-145) Potassium Level 4.0 mmol/L (3.5-5.1) Chloride Level 104 mmol/L (98-107) Carbon Dioxide Level 28 mmol/L (21-32) Anion Gap 9 (6-14) Blood Urea Nitrogen 46 mg/dL (7-20) Creatinine 5.7 mg/dL (0.6-1.0) Estimated GFR (Cockcroft-Gault) 9.1 Glucose Level 93 mg/dL (70-99) Calcium Level 8.1 mg/dL (8.5-10.1) Magnesium Level 2.0 mg/dL (1.8-2.4) Laboratory Tests Test 03/22/20 16:00 Hemoglobin 8.8 g/dL (12.0-15.5) Hematocrit 25.8 % (36.0-47.0) Mean Corpuscular Hemoglobin Concent 34 g/dL (31-37) Medications Active Scripts Medications Dose Route/Sig Max Daily Dose Days Date Category [place] 5-325 Tablet (Acetaminophen/Hydrocodone Bitart) 1 Each Tablet 1-2 Tab PO Q4-6HRS 12/03/17 Rx Indomethacin 50 Mg Capsule 1 Cap PO TID 12/03/17 Rx Meclizine Hcl 12.5 Mg Tablet 25 Mg PO TID 7 09/08/17 Rx Calcium Gummies (Calcium Phosphate Trib/Vit D3) 1 Each Tab.chew 1 Each PO DAILY 09/06/17 Reported Omeprazole 20 Mg Tablet.dr 20 Mg PO DAILY PRN 04/01/17 Reported Comments cxr reviewed rll infilt atelectasis effusion ett ok Impression . IMPRESSION: 1. Acute hypoxemic respiratory failure. extubated on 03/19 2. Metabolic acidosis secondary to increased work of breathing. resolved 3. Acute pulmonary edema. Acute on chronic diastolic heart 4. End-stage renal disease. 5. Acute metabolic encephalopathy. 6. Elevated troponin, suspect demand ischemia. 7. Obesity. prob daksha 8. History of Merna's. 9. Acute drop in hemoglobin 10. SARS-CoV-2 testing x2- 11. Suspect DAKSHA Plan . Hemodialysis per nephrology Continue oxygen throughout the day Nocturnal desats that Outpatient polysomnogram Transfer out of ICU Transfused today DVT prophylax Empiric antibiotics ARMINDA MALCOLM MD Mar 23, 2020 09:25
[2020-03-23] MEDS: LACTOBACILLUS RHAMNOSUS GG 1 CAPSULE. PO SCH ×2 (09:49→21:00)
[2020-03-23] MEDS: PANTOPRAZOLE 40 MG TABLET.DR. PO SCH (09:49)
--- NOTE | 2020-03-23 11:10 | PDOC ---
Renal-Progress Notes Subjective Notes Notes NO SOB History of Present Illness Hx of present illness STABLE Vitals Vitals Vital Signs Date Time Temp Pulse Resp B/P (MAP) Pulse Ox O2 Delivery O2 Flow Rate FiO2 03/23/20 04:10 98.1 91 15 91/73 (79) 93 Nasal Cannula 2.0 98.1 Weight Weight [ ] I.O. Intake and Output Intake and Output 03/23/20 07:00 Intake Total 1235 ml Output Total 200 ml Balance 1035 ml Intake Oral 400 ml IV Total 550 ml Blood Product IV Normal Saline Flush 285 ml Output Urine Total 200 ml Labs Labs Laboratory Tests Test 03/22/20 16:00 Hemoglobin 8.8 g/dL (12.0-15.5) Hematocrit 25.8 % (36.0-47.0) Mean Corpuscular Hemoglobin Concent 34 g/dL (31-37) Micro Micro Microbiology 03/17/20 Blood Culture - Final, Complete NO GROWTH AFTER 5 DAYS Review of Systems Constitutional: yes: weakness, alert, oriented Ears/Nose/Throat: Yes: no symptom reported Eyes: Yes: no symptom reported Pulmonary: Yes dyspnea Cardiovascular: Yes no symptom reported Genitourinary: Yes: incontinence Musculoskeletal: Yes: muscle stiffness Skin: Yes no symptom reported Psychiatric/Neurological: Yes: no symptom reported Endocrine: Yes: no symptom reported Physical Exam General Appearance: no apparent distress Skin: warm Respiratory: bilateral CTA Heart: S1S2 Abdomen: soft, bowel sounds present Genitourinary: bladder flat Extremities: pulses present Neurology: alert, oriented, follow commands Assessment Assessment IMP ESRD ANEMIA ACUTE RESP FAILURE HX OF WG S/P EXTUBATION PLAN O2 NEEDED HD TOMORROW WEAN O2 MEMO NEEDED WILL FOLLOW . HIPOLITO TAYLOR MD Mar 23, 2020 11:10
--- NOTE | 2020-03-23 11:54 | PDOC ---
ANAY MARTIN AUTOMATIC DOOR MECHANIC 03/23/20 1154: CARDIO Progress Notes Date and Time Date of Service 03/23/20 Time of Evaluation 1050 Subjective Subjective: No Chest Pain, No Palpitations, Other (SOA improved ) Vitals Vitals Vital Signs Date Time Temp Pulse Resp B/P (MAP) Pulse Ox O2 Delivery O2 Flow Rate FiO2 03/23/20 04:10 98.1 91 15 91/73 (79) 93 Nasal Cannula 2.0 98.1 Weight Weight [ ] Input and Output Intake and Output Intake and Output 03/23/20 07:00 Intake Total 1235 ml Output Total 200 ml Balance 1035 ml Intake Oral 400 ml IV Total 550 ml Blood Product IV Normal Saline Flush 285 ml Output Urine Total 200 ml Laboratory Labs Laboratory Tests Test 03/22/20 16:00 Hemoglobin 8.8 g/dL (12.0-15.5) Hematocrit 25.8 % (36.0-47.0) Mean Corpuscular Hemoglobin Concent 34 g/dL (31-37) Microbiology Micro Microbiology 03/17/20 Blood Culture - Final, Complete NO GROWTH AFTER 5 DAYS Review of Systems Constitutional: yes: weakness, alert, oriented Ears/Nose/Throat: Yes: no symptom reported Eyes: Yes: no symptom reported Pulmonary: Yes dyspnea Cardiovascular: Yes no symptom reported Genitourinary: Yes: incontinence Musculoskeletal: Yes: muscle stiffness Skin: Yes no symptom reported Psychiatric/Neurological: Yes: no symptom reported Endocrine: Yes: no symptom reported Physical Exam HEENT: Neck Supple W Full Motion Chest: Symmetric LUNGS: Other (diminished bases) Heart: RRR Abdomen: Soft N/T Extremities: No Edema Neurology: alert, oriented, follow commands Assessment Assessment 1. Acute respiratory failure, probable PNA. COVID negative. s/p extubation. On 2L NC. Repeat COVID negative 2. Leukocytosis 3. Mild troponin elevation; highest 0.7. Probable type II, demand ischemia 4. Acute on chronic diastolic CHF; appears compensated 5. Elevated LFTs 6. ESRD on HD 7. Anemia; s/p transfusion Recommendations Fluid offloading via HD Echo pending Consider outpatient ischemic evaluation Follow up in our office with Dr. Walker as scheduled Supportive care Justicifation of Admission Dx: Justifications for Admission: Justification of Admission Dx: Yes Respiratory Failure: Mechanical Ventilation ASTON WALKER MD 7/22/20 2008: CARDIO Progress Notes Assessment Assessment Patient seen and examined. Agree with APPRENTICE PAINTER BRUSH's assessment and plan. 2D echo showed EF 45%, compensated and CP free Plan ischemic eval as outpatient Follow up as scheduled ANAY MARTIN APRN Mar 23, 2020 11:54 ASTON WALKER MD Mar 23, 2020 20:08
--- NOTE | 2020-03-23 12:15 | PDOC ---
[employer] PROGRESS NOTE Chief Complaint Chief Complaint Acute Hypoxic Resp Failure secondary to Volume Overload Suspected COVID-19 Acute Encephalopathy ESRD on HD Elevated Trop likely demand ischemia Obesity Payal's Dz hx of Vertigo History of Present Illness History of Present Illness 03/23/2020 Patient seen and examined in the COVID-10 unit ICU Covid negative. Chart reviewed Discussed with RN Vitals/I&O Vitals/I&O: Vital Signs Date Time Temp Pulse Resp B/P (MAP) Pulse Ox O2 Delivery O2 Flow Rate FiO2 03/23/20 11:54 93 112/75 (87) 93 Nasal Cannula 2.0 03/23/20 04:10 98.1 15 98.1 I & O 03/22/20 03/22/20 03/23/20 15:00 23:00 07:00 Intake Total 285 ml 450 ml 500 ml Output Total 200 ml Balance 285 ml 250 ml 500 ml Physical Exam General: Alert, Cooperative, Other (Quite weak) Heart: Regular rate Lungs: Crackles Abdomen: Soft Extremities: No edema, Normal pulses Skin: No rashes, No breakdown Labs Labs: Laboratory Tests Test 03/22/20 16:00 Hemoglobin 8.8 g/dL (12.0-15.5) Hematocrit 25.8 % (36.0-47.0) Mean Corpuscular Hemoglobin Concent 34 g/dL (31-37) Assessment and Plan Assessmemt and Plan Problems Medical Problems: (1) Acute respiratory failure Status: Acute Assessment 1. Acute respiratory failure, probable PNA. COVID negative. s/p extubation. On RA. 2. Leukocytosis 3. Mild troponin elevation; highest 0.7. Probable type II, demand ischemia 4. Acute on chronic diastolic CHF; better compensated 5. Elevated LFTs 6. ESRD on HD 7. Anemia; to be transfused Plan: Discharge disposition pending? For now; IV Zosyn Saturday dialysis Home meds Trend labs given elevated procal and ? PNA continue zosyn initial covid negative apprec pulm and nephro and cares cards consulted given elevated trop, likely demand ischemia DVT ppx: heparin sq FULL CODE Comment Review of Relevant I have reviewed the following items timur (where applicable) has been applied. Medications: Current Medications Medications (Trade) Dose Ordered Sig/Solomon Route PRN Reason Start Time Stop Time Status Last Admin Dose Admin Lactobacillus Rhamnosus (Culturelle) 1 cap BID PO 03/22/20 21:00 03/23/20 09:49 Sodium Chloride 500 ml @ 500 mls/hr 1X ONCE IV 03/23/20 01:00 03/23/20 01:59 DC 03/23/20 00:49 Justicifation of Admission Dx: Justifications for Admission: Justification of Admission Dx: Yes Respiratory Failure: Mechanical Ventilation ROS BUSTILLO III DO Mar 23, 2020 12:15
--- NOTE | 2020-03-23 16:06 | NUR ---
SS following up with discharge planning. SS reviewed pt chart and discussed with pt RN. Pt is currently requiring oxygen. Pt on IV Zosyn. PT recommended home with home healthcare. Pt has outpatient dialysis at [facility], ; fax [phone], Saturday, , and Saturday. COVID19 negative. SS met with pt and spouse in room to discuss discharge planning and home healthcare. Pt and pt's spouse agreeable to home healthcare with no preference of company. Nurse navigator to meet with pt and spouse to further discuss home healthcare. SS will continue to follow for discharge planning.
--- NOTE | 2020-03-23 17:43 | CARD ---
MR#: [id number] Date of Study: 03/23/2020 Ordering Physician: ANAY MARTIN, Referring Physician: ANAY MARTIN, Tech: Chloe Phan APPROVED REPORT EXAM: Two-dimensional and M-mode echocardiogram with Doppler and color Doppler. Other Information Quality : AverageHR: 92bpm INDICATION Congestive Heart Failure Elevated Troponin 2D DIMENSIONS Left Atrium(2D)3.2 (1.6-4.0cm)IVSd1.0 (0.7-1.1cm) Aortic Root(2D)2.5 (2.0-3.7cm)LVDd5.1 (3.9-5.9cm) LVOT Diameter1.9 (1.8-2.4cm)PWd1.1 (0.7-1.1cm) LVDs3.9 (2.5-4.0cm)FS (%) 22.7 % SV55.8 ml Aortic Valve AoV Peak Porfirio.167.3cm/sAoV VTI32.6cm AO Peak GR.11.2mmHgLVOT VTI 23.99cm AO Mean GR.6mmHg Mitral Valve MV E Yknqfnqv53.3cm/sMV E Peak Gr.7mmHg MV DECEL [id number] A Ypkkpmqg851.9cm/s MV E Mean Gr.4mmHgE/A Ratio0.9 TDI Lateral E' P. V8.62cm/sMedial E' P. V7.47cm/s E/Lateral E'10.7E/Medial E'12.4 Tricuspid Valve TR P. Zdtqvndk242zo/sRAP [id number] TR Peak Gr.12lyRyKPUE12tqAm LEFT VENTRICLE The left ventricle is normal size. There is normal left ventricular wall thickness. The systolic func tion is mildly impaired. The Ejection Fraction is estimated at 45%. There is slight global hypokinesi s of the left ventricle. Transmitral Doppler flow pattern is Grade I-abnormal relaxation pattern. RIGHT VENTRICLE The right ventricle is normal size. There is normal right ventricular wall thickness. The right ventr icular systolic function is normal. ATRIA The left atrium size is normal. The right atrium size is normal. The interatrial septum is intact wit h no evidence for an atrial septal defect or patent foramen ovale as noted on 2-D or Doppler imaging. AORTIC VALVE The aortic valve is thickened but opens well. Doppler and Color Flow revealed no significant aortic r egurgitation. There is no significant aortic valvular stenosis. Calculated aortic valve area is 2.25 cm2 with maximum pressure gradient of 12 mmHg and mean pressure gradient of 6 mmHg. MITRAL VALVE The mitral valve is normal in structure and function. There is no evidence of mitral valve prolapse. There is no mitral valve stenosis. Doppler and Color-flow revealed mild mitral regurgitation. TRICUSPID VALVE The tricuspid valve is normal in structure and function. Doppler and Color Flow revealed mild tricusp id regurgitation with an estimated PAP of 45 mmHg. There is no tricuspid valve stenosis. PULMONIC VALVE The pulmonic valve is not well visualized. Doppler and Color Flow revealed no pulmonic valvular regur gitation. GREAT VESSELS The aortic root is normal in size. The IVC is dilated and collapses <50% with inspiration. PERICARDIAL EFFUSION There is no evidence of significant pericardial effusion. Critical Notification Critical Value: No <Conclusion> The left ventricle is normal size. The systolic function is mildly impaired. The Ejection Fraction is estimated at 45%. There is slight global hypokinesis of the left ventricle. Doppler and Color Flow revealed no significant aortic regurgitation. There is no significant aortic valvular stenosis. Calculated aortic valve area is 2.25 cm2 with maximum pressure gradient of 12 mmHg and mean pressure gradient of 6 mmHg. Doppler and Color-flow revealed mild mitral regurgitation. Doppler and Color Flow revealed mild tricuspid regurgitation with an estimated PAP of 45 mmHg. Signed by : Jose Butt MD Electronically Approved : 03/23/2020 17:43:13
[2020-03-24] VITALS: BP 100/59
[2020-03-24 04:39] VITALS: BP 113/78
[2020-03-24] MEDS: PIPERACILLIN/TAZOBACTAM 2.25 GM in IV NORMAL SALINE 50ML 50 ML IV SCH ×2 (06:02→13:13)
[2020-03-24] MEDS: HEPARIN for SUB-Q USE 5,000 UNIT/ML VIAL. SQ SCH ×2 (06:03→13:15)
--- NOTE | 2020-03-24 07:28 | NUR ---
Informed in report of pt concerned of her clothes that she had on when she came to the hospital. Pt informed of clothes may have been cut off of her since she was not responsive. Emergency dept has been notified. Pt would like to speak to pt advocate if possible before discharge about situation that occurred on Saturday. Charge Nurse informed and pt states she has already called someone and informed that someone will come by and see her.
[2020-03-24 08:00] VITALS: BP 114/73
[2020-03-24] MEDS ORDERED: IV NORMAL SALINE 1000ML BAG 1,000 ML IV PRN ×2 (08:29)
[2020-03-24] MEDS ORDERED: ALBUMIN HUMAN 25% 200 ML IV PRN (08:30)
[2020-03-24] MEDS ORDERED: DIALYSIS PATIENT. MC PRN ×2 (08:30)
--- NOTE | 2020-03-24 09:19 | PDOC ---
PULMONARY PROGRESS NOTES Subjective extubated 03/19, patient on oxygen, no respiratory distress Patient was on oxygen at home, positive clinical symptoms and signs of sleep apnea Vitals Vital Signs Date Time Temp Pulse Resp B/P (MAP) Pulse Ox O2 Delivery O2 Flow Rate FiO2 03/24/20 04:39 98.8 94 18 113/78 (90) 97 Nasal Cannula 2.0 98.8 ROS: No Nausea, No Chest Pain, No Abdominal Pain, No Increase Cough General: Alert, Oriented X4 HEENT: Other (nc at perrl nose clear shallow oropharynx neck no lad no thyromegaly) Lungs: Crackles Cardiovascular: S1, S2 Abdomen: Soft, Non-tender, Other (no mass) Neuro Exam: Alert Extremities: Other (Edema) Skin: Warm Labs Laboratory Tests Test 03/22/20 16:00 Hemoglobin 8.8 g/dL (12.0-15.5) Hematocrit 25.8 % (36.0-47.0) Mean Corpuscular Hemoglobin Concent 34 g/dL (31-37) Medications Active Scripts Medications Dose Route/Sig Max Daily Dose Days Date Category Gladys 5-325 Tablet (Acetaminophen/Hydrocodone Bitart) 1 Each Tablet 1-2 Tab PO Q4-6HRS 12/03/17 Rx Indomethacin 50 Mg Capsule 1 Cap PO TID 12/03/17 Rx Meclizine Hcl 12.5 Mg Tablet 25 Mg PO TID 7 09/08/17 Rx Calcium Gummies (Calcium Phosphate Trib/Vit D3) 1 Each Tab.chew 1 Each PO DAILY 09/06/17 Reported Omeprazole 20 Mg Tablet.dr 20 Mg PO DAILY PRN 04/01/17 Reported Comments cxr reviewed rll infilt atelectasis effusion ett ok Impression . IMPRESSION: 1. Acute hypoxemic respiratory failure. extubated on 03/19 2. Metabolic acidosis secondary to increased work of breathing. resolved 3. Acute pulmonary edema. Acute on chronic diastolic heart 4. End-stage renal disease. 5. Acute metabolic encephalopathy. 6. Elevated troponin, suspect demand ischemia. 7. Obesity. prob daksha 8. History of Merna's. 9. Acute drop in hemoglobin 10. SARS-CoV-2 testing x2- 11. Suspect DAKSHA Plan . Hemodialysis per nephrology Continue oxygen throughout the day Nocturnal desats that Outpatient polysomnogram Transfer out of ICU Transfused today DVT prophylax Empiric antibiotics ARMINDA MALCOLM MD Mar 24, 2020 09:19
--- NOTE | 2020-03-24 11:53 | PDOC ---
Renal-Progress Notes Subjective Notes Notes FEELS WELL, NO NEW COMPLAINTS History of Present Illness Hx of present illness STABLE Vitals Vitals Vital Signs Date Time Temp Pulse Resp B/P (MAP) Pulse Ox O2 Delivery O2 Flow Rate FiO2 03/24/20 04:39 98.8 94 18 113/78 (90) 97 Nasal Cannula 2.0 98.8 Weight Weight [ ] I.O. Intake and Output Intake and Output 03/24/20 07:00 Intake Total 350 ml Balance 350 ml Intake Oral 300 ml IV Total 50 ml # Voids 1 # Bowel Movements 1 Micro Micro Microbiology 03/17/20 Blood Culture - Final, Complete NO GROWTH AFTER 5 DAYS Review of Systems Constitutional: yes: weakness, alert, oriented Ears/Nose/Throat: Yes: no symptom reported Eyes: Yes: no symptom reported Pulmonary: Yes dyspnea Cardiovascular: Yes no symptom reported Genitourinary: Yes: incontinence Musculoskeletal: Yes: muscle stiffness Skin: Yes no symptom reported Psychiatric/Neurological: Yes: no symptom reported Endocrine: Yes: no symptom reported Physical Exam General Appearance: no apparent distress Skin: warm Respiratory: bilateral CTA Heart: S1S2 Abdomen: soft, bowel sounds present Genitourinary: bladder flat Extremities: pulses present Neurology: alert, oriented, follow commands Assessment Assessment IMP ESRD ANEMIA ACUTE RESP FAILURE HX OF WG S/P EXTUBATION PLAN O2 NEEDED HD TODAY UF TO DW MEMO NEEDED WILL FOLLOW . HIPOLITO TAYLOR MD Mar 24, 2020 11:53
[2020-03-24 12:00] VITALS: BP 95/57
--- NOTE | 2020-03-24 13:00 | NUR ---
Received report from dialysis, Pt at a target weight of 77.6, 2L off. 154/77, HR96, T98.1
[2020-03-24] MEDS: LACTOBACILLUS RHAMNOSUS GG 1 CAPSULE. PO SCH (13:13)
[2020-03-24] MEDS: PANTOPRAZOLE 40 MG TABLET.DR. PO SCH (13:13)
--- NOTE | 2020-03-24 13:14 | SNU/HH DC ---
DISCHARGE WITH HOME HEALTH DISCHARGE INFORMATION: Final Diagnosis: Problems Medical Problems: (1) Acute respiratory failure Status: Acute Condition on Discharge: Stable CODE STATUS: Code Status: Full HOME HEALTH: Face to Face: I certify this patient is under my care and that I, or a nurse practitioner or physician's recycling assistant working with me, had a face to face encounter that meets the physician face to face encounter requirements with this patient on []. Medical Complications: Other (Recent respiratory failure ESRD) Snf For: Assess & Educate Safety RN For Eval/Treatment: Yes Physical Therapy For: Evalulation/Treatment Occupational Therapy For: Evaluation/Treatment Home Health Aide For: Self-care HOME CARE CONSULTANT For: Community Resources Pt Meets Homebound Status: Unsteady balance w/ amb, POST DISCHARGE ORDERS: Activity Instructions for Disc: Activity as tolerated DIET AFTER DISCHARGE: Cardiac CERTIFICATION STATEMENT: Certification Statement: Certification Statement: Based on the above finding, I certify that this patient is confined to the home and needs intermittent custodial care, physical therapy and/or speech therapy, or continues to need occupational therapy.~ This patient is under my care, and I have initiated the establishment of the plan of care.~ This patient will be followed by myself or a community physician who will periodically review the plan of care. Home Meds Active Scripts Hydrocodone/Apap 5-325 (NORCO 5-325 TABLET) 1 Each Tablet, 1-2 TAB PO Q4-6HRS, #10 TAB Prov:INES MARIE MD 12/03/17 Indomethacin (INDOMETHACIN) 50 Mg Capsule, 1 CAP PO TID, #30 CAP 1 Refill Prov:INES MARIE MD 12/03/17 Meclizine Hcl (MECLIZINE HCL) 12.5 Mg Tablet, 25 MG PO TID for 7 Days, #42 TAB Prov:BERTHA CHRISTOPHER MD 09/08/17 Reported Medications Pantoprazole Sodium (PROTONIX ) 40 Mg Tablet.dr, 40 MG PO DAILYAC for GERD, TAB 03/17/20 Atorvastatin Calcium (ATORVASTATIN CALCIUM) 10 Mg Tablet, 1 TAB PO DAILY for HLD, #30 TAB 5 Refills 03/17/20 Zolpidem Tartrate (AMBIEN) 5 Mg Tablet, 5 MG PO PRN QHS PRN for INSOMNIA, TAB 0 Refills 03/17/20 Calcium Acetate (CALCIUM ACETATE) 667 Mg Tablet, 1 TAB PO TID for Medical Management for 30 Days, #90 TAB 0 Refills 03/17/20 Calcium Phosphate Trib/Vit D3 (CALCIUM GUMMIES) 1 Each Tab.chew, 1 EACH PO DAILY, TAB.CHEW 09/06/17 Omeprazole (OMEPRAZOLE) 20 Mg Tablet.dr, 20 MG PO DAILY PRN for DYSPEPSIA, TAB 04/01/17 ROS BUSTILLO III DO Mar 24, 2020 13:14
--- NOTE | 2020-03-24 13:46 | NUR ---
SS following up with discharge planning. SS reviewed pt chart and discussed with pt RN. Discharge orders received for home healthcare. Nurse navigator met with pt to discuss home healthcare. Pt agreeable to [facility], ; fax [phone]. Discharge orders and referral phoned and faxed to [facility]. Pt's RN notified.
--- NOTE | 2020-03-24 15:30 | NUR ---
Pt was escorted to outpatient with and all belongings on 2LNC and wheelchair. Home health services at time of discharge, IV and telemonitor off. Pt faired well.
== END 2020-03-24 15:30 | disposition home health service (06) | DRG 208 ==
LOC: ER 07:51 → ED HOLD 08:55 → 1 WEST ICU 11:30
PROVIDERS: ADMIT Internal Medicine; ATTEND Internal Medicine
PROC: 5A1945Z Respiratory Ventilation, 24-96 Consecutive Hours (ICD-10-PCS; 2020-03-17)
PROC: 0BH17EZ Insertion of Endotracheal Airway into Trachea, Via Natural or Artificial Opening (ICD-10-PCS; 2020-03-17)
PROC: 5A1D70Z Performance of Urinary Filtration, Intermittent, Less than 6 Hours Per Day (ICD-10-PCS; 2020-03-17)
PROC: 5A09357 Assistance with Respiratory Ventilation, Less than 24 Consecutive Hours, Continuous Positive Airway Pressure (ICD-10-PCS; 2020-03-17)
PROC: 30233N1 Transfusion of Nonautologous Red Blood Cells into Peripheral Vein, Percutaneous Approach (ICD-10-PCS; principal; 2020-03-22)
PROC: 5A1D70Z Performance of Urinary Filtration, Intermittent, Less than 6 Hours Per Day (ICD-10-PCS; 2020-03-24)
DX: J96.01 Acute respiratory failure with hypoxia (principal); N18.6 End stage renal disease; I50.33 Acute on chronic diastolic (congestive) heart failure; G93.41 Metabolic encephalopathy; E87.2 Acidosis; D64.9 Anemia, unspecified; E66.9 Obesity, unspecified; Z68.32 Body mass index [BMI] 32.0-32.9, adult; F17.210 Nicotine dependence, cigarettes, uncomplicated; Z20.828 Contact with and (suspected) exposure to other viral communicable diseases; Z53.20 Procedure and treatment not carried out because of patient's decision for unspecified reasons; Z82.49 Family history of ischemic heart disease and other diseases of the circulatory system; Z83.3 Family history of diabetes mellitus; Z85.3 Personal history of malignant neoplasm of breast; Z88.2 Allergy status to sulfonamides; Z99.2 Dependence on renal dialysis; F41.9 Anxiety disorder, unspecified; K21.9 Gastro-esophageal reflux disease without esophagitis; I95.9 Hypotension, unspecified; D72.829 Elevated white blood cell count, unspecified
CPT/HCPCS: 31500; 36415; 36556; 36600; 71045; 80048; 80053; 80307; 82805; 82962; 83605; 83735; 83880; 84145; 84484; 85014; 85018; 85025; 85027; 85610; 86850; 86900; 86901; 86920; 87040; 93005; 93306; 94002; 94003; 94660; 96365; 96367; 96375; 96376; 99291; C9113; J0882; J1644; J2543; J2704; J3010; J3475; J3490; J7030; J7040; J7060; P9016; 97116-GP; 97530-GP; G0378; U0003-CS

== ENCOUNTER 2020-06-06 07:59 | Day surgery (SDC) | payer MEDICARE, OTHER ==
[~2020-06-06] VITALS: Ht 157.5 cm; Wt 80.0 kg
[~2020-06-06 07:59] MED LIST changes: +ASPI-630 PO; +ATOR10TA60 PO; +CALC667T4 PO; +FOLI0.8T7 PO; +HYDROmorphone 2 MG/ML VIAL IV PRN; +IV NORMAL SALINE 1000ML BAG 1,000 ML IV SCH; +LIDOCAINE 1% PF 2 ML VIAL. ID PRN; +MORPHINE SULFATE 2 MG/ML VIAL. IV PRN; +ONDANSETRON PF 4 MG/2 ML VIAL. IV PRN; +PANT40TA77 PO; +PROCHLORPERAZINE 10 MG/2 ML VIAL. IV PRN; +ZOLP5TAB PO; +fentaNYL PF VIAL 100 MCG/2 ML VIAL IV PRN
[2020-06-06] MEDS ORDERED: DEXAMETHASONE SOD PHOS 4 MG/ML VIAL ONE (08:27)
[2020-06-06] MEDS ORDERED: ONDANSETRON PF 4 MG/2 ML VIAL. ONE (08:27)
[2020-06-06] MEDS ORDERED: PROPOFOL 10 MG/ML (20ML) VIAL. IV ONE (08:27)
[2020-06-06] MEDS ORDERED: LIDOCAINE 2% PF 5 ML VIAL. ONE (08:27)
[2020-06-06] MEDS ORDERED: fentaNYL PF VIAL 100 MCG/2 ML VIAL ONE ×2 (08:27→10:57)
[2020-06-06] MEDS ORDERED: ROCURONIUM 50 MG/5 ML VIAL. ONE (08:27)
[2020-06-06] MEDS ORDERED: SUCCINYLCHOLINE 200 MG/10 ML VIAL. ONE (08:36)
[2020-06-06] MEDS ORDERED: HEPARIN for IV BOLUS 10,000 UNIT/10 ML VIAL. ONE ×2 (09:22→09:28)
[2020-06-06 09:26] LABS: CALCIUM 9.2 mg/dL (8.5-10.1); CREATININE 6.6 mg/dL (0.6-1.0); GFR 7.6; POTASSIUM 4.4 mmol/L (3.5-5.1)
[2020-06-06] MEDS ORDERED: DESFLURANE 31 TO 60 MINUTES IH ONE (10:21)
[2020-06-06] MEDS ORDERED: GLYCOPYRROLATE 1 MG/5 ML VIAL. ONE (10:22)
[2020-06-06] MEDS ORDERED: NEOSTIGMINE METHYLSULFATE 5 MG/5 ML SYRINGE. ONE (10:22)
--- NOTE | 2020-06-06 10:35 | PDOC4 ---
Operative Note Operative Note OPERATIVE NOTE: PREOPERATIVE DIAGNOSIS: Renal failure. POSTOPERATIVE DIAGNOSIS: Renal failure. PROCEDURE: Laparoscopic peritoneal dialysis catheter placement. SURGEON: Jnu Selby MD OPERATIONS SECTION MANAGER: Pk DUTTA ANESTHESIA: General. ESTIMATED BLOOD LOSS: 10 mL. SPECIMENS: None. DRAINS: None. COMPLICATIONS: None. INDICATIONS: The patient is a 65-year-old female who was referred for placement of a peritoneal dialysis catheter due to progressive renal failure. The details and risks of surgery were discussed with the patient. The risks of surgery include bleeding, infection, visceral injury, pain, anesthetic risk, potential need for additional surgery or procedure. In addition, the patient is aware of the potential for catheter malfunction or dysfunction and possibility of needing revision, replacement, or removal of the catheter. They understand all this and would like to proceed. DESCRIPTION OF PROCEDURE: The patient was brought to the operating room and placed supine on the operating table. General anesthesia was performed. The abdomen was prepped with ChloraPrep and draped in a standard surgical manner. A small incision was made in the patient's left upper quadrant through which a visualized 5-mm trocar was inserted. A pneumoperitoneum was then created and the laparoscope was introduced. Initial inspection showed no significant adhesions or any other gross abnormalities. Using the placement template, the left abdomen was marked with a planned catheter exit site in the LLQ. A small incision was made to the left of the patient's midline at the marked location for the exit site of the cuff. An 8-mm trocar was inserted through this location. The coiled portion of the lower catheter was then inserted into the pelvis under direct visualization. The cuff was positioned in the rectus muscu lature. The coiled portion rested well in the inferior mid pelvis. The pneumoperitoneum was then relieved. An incision was then made in the left lower quadrant at the planned exit site. The proximal portion of the catheter was tunnelled subcutaneously to the exit site. The proximal cuff remained in the subcutaneous tissue a few cm away from the exit site. The catheter was then assembled to IV tubing and tested by infusing a liter of saline. The saline passed easily into the abdomen and the bag was placed on the floor. Nearly all of the saline readily was retrieved with prompt flow. The abdominal cavity was then reinsufflated and the laparoscope was reintroduced showing no change in the catheter position and the cuff remained in the rectus. The pneumoperitoneum was relieved and the ports were removed. The catheter was then assembled to the connector tubing as per the dialysis instructions. All the incision sites were closed with 4-0 Monocryl. Steri-Strips and sterile dressing were then applied. The patient tolerated procedure well and was sent to the recovery room in stable condition. At the end of the case all counts were correct. JUN SELBY MD Jun 06, 2020 10:35
--- NOTE | 2020-06-06 10:37 | DISCH ---
DISCHARGE INSTRUCTIONS Condition on Discharge Condition on Discharge: Stable Activity After Discharge Activity Instructions for Disc: Other, see below (No lifting over 20 lbs X 2 weeks) Diet after Discharge Diet after Discharge: Regular Wound Incision Care Wound/Incision Care: Other, see below (keep dresssing clean and dry) Follow-Up Follow up with: Dialysis center, call for appointment JERRI SELBY MD Jun 06, 2020 10:37
[2020-06-06] MEDS ORDERED: HYDR-3164 PO (10:51)
[2020-06-06] MEDS ORDERED: HYDROcodone/APAP 5/325MG 1 TAB TABLET PO ONE ×2 (11:00)
[2020-06-06] MEDS: fentaNYL PF VIAL 100 MCG/2 ML VIAL IV PRN ×2 (11:10→11:14)
[2020-06-06 11:25] VITALS: BP 106/74
== END 2020-06-06 12:12 | disposition home or self-care (01) ==
LOC: SURG 07:59
PROVIDERS: ATTEND Surgery
DX: N19 Unspecified kidney failure (principal); E66.9 Obesity, unspecified; J30.2 Other seasonal allergic rhinitis; Z79.82 Long term (current) use of aspirin; Z79.899 Other long term (current) drug therapy; Z85.3 Personal history of malignant neoplasm of breast; Z98.890 Other specified postprocedural states; Z82.49 Family history of ischemic heart disease and other diseases of the circulatory system; Z83.3 Family history of diabetes mellitus; Z83.6 Family history of other diseases of the respiratory system; Z87.891 Personal history of nicotine dependence; Z88.1 Allergy status to other antibiotic agents; Z68.32 Body mass index [BMI] 32.0-32.9, adult
CPT/HCPCS: 49324; 80048; 87426; A7015; C1750; J0330; J0690; J1100; J1644; J2405; J2704; J2710; J3010; J3490; J7030; U0003